=== PATIENT | male | born 1965 | race Caucasian/White ===

== ENCOUNTER 2023-04-30 10:36 | Outpatient (REF) | payer OTHER, SELFPAY ==
--- NOTE | 2023-04-30 13:01 | PFT_ITS ---
FLOWS: 1. FEV1 75% of predicted at 2.91 L. 2. FVC 75% of predicted at 3.72 L. 3. FEV1 to FVC ratio of 0.78. 4. No bronchodilator response. LUNG VOLUMES: 1. Total lung capacity 95% of predicted at 6.83 L. 2. Residual volume 159% of predicted at 3.61 L. 3. Slow vital capacity 65% of predicted at 3.21 L. 4. Expiratory reserve volume 32% of predicted at 0.48 L. 5. Diffusion capacity is normal. IMPRESSION: No obstructive or restrictive ventilatory defect. No bronchodilator response. Increased residual volume suggests air trapping. Decreased expiratory reserve volume suggests extrathoracic restriction likely secondary to abdominal obesity. MD LISA Hubbard/MODL / [id number]
== END 2023-04-30 10:37 | disposition home or self-care (01) ==
LOC: HO.RESP 10:36
PROVIDERS: PCP Internal Medicine; Visit Provider Internal Medicine
DX: R06.00 Dyspnea, unspecified (principal)
CPT/HCPCS: 94010; 94727; 94729

== ENCOUNTER → 2023-04-30 13:01 | Outpatient (BNV) | payer OTHER, SELFPAY | PROVIDERS: PCP Internal Medicine; Visit Provider Internal Medicine Pulmonary Disease | DX: R06.09 Other forms of dyspnea (principal) | CPT/HCPCS: 94060; 94727; 94729 ==

== ENCOUNTER 2023-05-04 15:03 | Inpatient (IN) | payer OTHER, SELFPAY ==
--- NOTE | ~2023-05-04 | MR_ITS ---
MRI OF THE BRAIN WITHOUT IV CONTRAST INDICATION: CVA. COMPARISON: CTA head and neck 05/04/2023 TECHNIQUE: Multiplanar multisequence MR imaging of the brain was obtained without IV contrast. FINDINGS: There is no hydrocephalus, extra-axial surface collection, or herniation. There is mild chronic microangiopathy. The major flow voids at the skull base are preserved. There is no acute infarct on diffusion-weighted imaging. There is no intracranial hemorrhage on the gradient recalled echo acquisition. The midline structures are normal. The cerebellar tonsils are normally positioned. The cerebellum and brainstem are normal. The craniocervical junction is normal. Osseous marrow signal intensity is homogenous. The visualized soft tissues are unremarkable. MR/MR head/brain wo con IMPRESSION: - No acute intracranial findings. No acute infarcts. - Mild chronic microangiopathy.
--- NOTE | ~2023-05-04 | CT_ITS ---
EXAMINATION: CT ANGIOGRAM HEAD CT ANGIOGRAM NECK CLINICAL INFORMATION: Reason for Exam facial/ neck numbness x 3 days COMPARISON: None. TECHNIQUE: Initial noncontrast sign poster imaging of the head and neck was performed. Noncontrast head CT was also performed. Test bolus sequences followed by intravenous administration 70 mL of Omnipaque 350. Helical imaging was performed in the axial plane from the aortic arch to the skull vertex. Delayed postcontrast imaging of the head was also performed. The data was processed at the reliability technologist's workstation for generation of MIP sequences. Angled MIPs and volume rendered reformatted images were also generated at an offline 3D workstation. Stenoses are assessed in accordance with NASCET criteria unless otherwise indicated. DLP: 2269 mGy-cm This CT examination was performed using dose optimization techniques as appropriate, variously including the following: *Automated exposure control. *Adjustment of mA and/or kV according to patient size (this includes techniques or standardized protocols for targeted exams where dose is matched to indication/reason for exam; i.e. extremities or head). *Use of iterative reconstruction technique. FINDINGS: CT Head: There is no evidence of acute intracranial hemorrhage or edematous territorial infarction. There is no abnormal attenuation within the brain parenchyma. Castillo-white matter differentiation is preserved. The ventricles are normal in size and configuration. No evidence for obstructive hydrocephalus. No abnormal mass effect or midline shift. No extra-axial fluid collections. No pathologic intra-axial enhancement or regional oligemia. No acute soft tissue or osseous abnormalities. The mastoid air cells and paranasal sinuses are clear. CT Neck: The thyroid gland and remaining cervical soft tissues are within normal limits. Mild degenerative changes of the cervical spine. CT Upper Chest: The visualized lung apices and upper mediastinum are within normal limits. Neck CTA: Aortic Arch: Normal contour and caliber. Classic 3 vessel branching pattern of the aortic arch. Great Vessel Origins: No significant stenosis of the branch origins. Right Common Carotid Artery: No focal stenosis or occlusion. Cervical Right Internal Carotid Artery: Normal opacification without focal stenosis or occlusion. Left Common Carotid Artery: No focal stenosis or occlusion. Cervical Left Internal Carotid Artery: Normal opacification without focal stenosis or occlusion. Cervical Right Vertebral Artery: No focal stenosis or occlusion. Cervical Left Vertebral Artery: Slightly dominant. No focal stenosis or occlusion. Brain CTA: Intracranial Internal Carotid Arteries: No focal stenosis or occlusion. Right Anterior Cerebral Artery: Normal A1 segment. Normal opacification of the distal [place] segments. Left Anterior Cerebral Artery: Normal A1 segment. Normal opacification of the distal [place] segments. Anterior Communicating Artery: Normal. Right Middle Cerebral Artery: Normal M1 segment of the MCA without focal stenosis or occlusion. Normal arborization of the distal segments. Left Middle Cerebral Artery: Normal M1 segment of the MCA without focal stenosis or occlusion. Normal arborization of the distal segments. Right Vertebral Artery: Normal V4 segment. Left Vertebral Artery: Normal V4 segment. Basilar Artery: Normal without focal stenosis or occlusion. Normal appearance of the proximal superior cerebellar arteries. Right Posterior Cerebral Artery: Normal P1 segment. Normal opacification of the distal [employer] segments. Left Posterior Cerebral Artery: Normal P1 segment. Normal opacification of the distal [employer] segments. Normal opacification of the superior sagittal, straight, transverse, and sigmoid sinuses. CT/CT angio head neck IMPRESSION: 1. No acute intracranial abnormality including hemorrhage, mass effect, hydrocephalus, or acute territorial edematous infarction. 2. No arterial high grade stenosis or large vessel occlusion in the head or neck.
[2023-05-04 15:27] VITALS: BP 183/89; PULSE 68; RESP 15; TEMP 36.4; O2SAT 98; BMI 30.5
--- NOTE | 2023-05-04 15:28 | ED.HA ---
HPI - Headache General Chief Complaint: Neuro Symptoms/Deficit Stated Complaint: headache Time Seen by Provider: 05/04/23 16:53 Related Data Previous Rx's Medication Instructions Recorded baclofen 20 mg tablet 20 mg PO BID 90 days #180 tabs 04/24/23 furosemide 20 mg tablet (Lasix) 20 mg PO DAILY 90 days #90 tabs 04/24/23 metoprolol succinate 25 mg 25 mg PO DAILY 90 days #90 tabs 04/24/23 tablet,extended release 24 hr nabumetone 500 mg tablet 500 mg PO BID 90 days #180 tabs 04/24/23 pantoprazole 40 mg tablet,delayed 40 mg PO DAILY 90 days #90 tabs 04/24/23 release Allergies Allergy/AdvReac Type Severity Reaction Status Date / Time No Known Allergies Allergy Verified 04/17/23 08:10 [facility] Past Medical History Medical History History of echocardiogram Surgical History History of cholecystectomy History of colonoscopy History of endoscopy Family History Family History (Updated 04/17/23 @ 08:13 by Sandrita Segura MD) Mother Embolism Father Stomach cancer, Onset Age: 60 Sister Mental health disorder Family/Other Mental health disorder Social History Social History Housing: House Alcohol intake: never Patient Tobacco Use Status: Never used Tobacco Smoked in Last 30 Days: No e-Cigarette/Vaping Use: Never Used Second Hand Smoke Exposure: No Use of substances other than those prescribed or required for medical reasons: No Advance Directives: No Advance Directives Information Provided: Yes service: No Current occupational status: unemployed Cognitive needs: No Hearing needs: No Vision needs: Yes Physical Exam Vital Signs: Vital Signs: Last Vital Signs Temp 98.6 F 05/04/23 16:31 Pulse 83 05/04/23 18:52 Resp 14 05/04/23 18:52 BP 126/86 05/04/23 18:52 Pulse Ox 97 05/04/23 18:52 O2 Del Method Room Air 05/04/23 18:52 BMI result Body Mass Index 30.5 NIH Stroke Scale Time: 15:36 Level of Consciousness: Alert Level of Consciousness Questions: Answers both questions correctly Level of Consciousness Commands: Performs both tasks correctly Best Gaze: Normal Visual: No visual loss Facial Palsy: Minor paralyis (mild asymmetry of the mouth) Motor Arm (Right): No drift Motor Arm (Left): No drift Motor Leg (Right): No drift Motor Leg (Left): No drift Limb Ataxia: Absent Sensory: Normal Best Language: No aphasia Dysarthia: Normal Extinction and Inattention: No abnormality Score: 1 Course Course Course Narrative: This is an RME: Additional HPI, ROS, PE not included below will be deferred to primary provider. Patient is a 58-year-old male who presents to the emergency department for evaluation of 05/01 he was working at home, upon going down the stairs he felt with and left side of his body was not responding, had weakness and numbness, and like somebody was ?pulling me also had pain to the left chest that was radiating up into his neck and into the head. 05/02 experiencing numbness from the left shoulder to the head without any pain. He presents today for persistent numbness to the left side of the face, neck and left shoulder. NIH stroke scale of 1 for very mild asymmetry of the mouth. Plan: CT/ CTA head and neck, labs Medications Administered Generic Name Dose Route Start Last Admin Trade Name Freq PRN Reason Stop Dose Admin Enoxaparin Sodium 40 mg 05/04/23 20:00 05/04/23 19:26 Enoxaparin Sodium 40 Mg/0.4 Ml Syringe SUBCUT 40 mg Q24H TOMASZ Administration Discontinued Medications Generic Name Dose Route Start Last Admin Trade Name Freq PRN Reason Stop Dose Admin Aspirin 325 mg 05/04/23 19:08 05/04/23 19:25 Aspirin Enteric Coated 325 Mg Tablet. PO 05/04/23 19:09 325 mg ONCE ONE Administration Diltiazem HCl 20 mg 05/04/23 18:17 05/04/23 18:44 Diltiazem Hcl 50 Mg/10 Ml Vial IVPUSH 05/04/23 18:18 20 mg STAT STA Administration Sodium Chloride 1,000 mls @ 999 mls/hr 05/04/23 18:17 05/04/23 18:44 Ns IVCONT 05/04/23 19:17 999 mls/hr .Q1H1M ONE Administration Iohexol 100 ml 05/04/23 17:13 05/04/23 17:13 Iohexol 350 Mg/Ml 100 Ml Infus..Btl IV 05/04/23 17:14 70 ml ONCE ONE Administration Medical Decision Making Lab Data 05/04/23 16:11 05/04/23 16:11 Labs: Lab Results 05/04/23 05/04/23 05/04/23 Range/Units 16:11 16:11 16:11 WBC 6.3 (4.8-10.8) X10*3/uL RBC 4.71 (4.60-5.80) X10*6/uL Hgb 13.7 L (14.0-18.0) g/dl Hct 42.4 (42.0-52.0) % MCV 90.0 (80.0-98.0) fL MCH 29.1 (27.0-33.0) pg MCHC 32.3 (31.0-36.0) g/dl RDW 12.1 (11.0-16.0) % Plt Count 179 (160-400) X10*3/uL MPV 9.9 (9.4-12.4) fL Immature Gran % (Auto) 0.2 (0.0-0.4) % Neut % (Auto) 72.6 (45-73) % Lymph % (Auto) 17.0 L (20-40) % [place] % (Auto) 8.3 (2-11) % Eos % (Auto) 1.6 (0-4) % Baso % (Auto) 0.3 (0-2) % Lymph # (Auto) 1.1 L (1.2-4.9) X10*3/uL Newton # (Auto) 0.5 (0.1-1.2) X10*3/uL Eos # (Auto) 0.1 (0.0-0.4) X10*3/uL Baso # (Auto) 0.0 (0.0-0.2) X10*3/uL Abs Immat Gran (auto) 0.01 (0.00-0.03) X10*3/uL Absolute Neuts (auto) 4.6 (2.0-8.3) x10*3/uL Absolute Nucleated RBC 0.000 (0.0-0.012) X10*3/uL Nucleated RBC % (auto) 0.0 (0.0-0.2) /100WBC PT 11.7 (10.0-13.1) SEC INR 1.0 (0.9-1.1) Sodium 141 (135-145) mmol/L Potassium 4.4 (3.3-5.1) mmol/L Chloride 103 (96-108) mmol/L Carbon Dioxide 29 (22-29) mmol/L Anion Gap 13 (12-20) BUN 12 (9-16) mg/dL Creatinine 0.98 (0.5-1.4) mg/dL Estim Creat Clear Calc 98.5 Estimated GFR > 60 Random Glucose 90 (60-115) mg/dL Calcium 9.8 (8.4-10.2) mg/dL Total Bilirubin 0.4 (0.0-1.0) mg/dL AST 22 (5-37) U/L ALT 26 (0-40) U/L Alkaline Phosphatase 65 (39-117) U/L Troponin I High Sens (<3.5-35.0) ng/L Total Protein 7.9 (6.5-8.0) g/dL Albumin 4.3 (3.5-5.0) g/dL 05/04/23 Range/Units 16:11 WBC (4.8-10.8) X10*3/uL RBC (4.60-5.80) X10*6/uL Hgb (14.0-18.0) g/dl Hct (42.0-52.0) % MCV (80.0-98.0) fL MCH (27.0-33.0) pg MCHC (31.0-36.0) g/dl RDW (11.0-16.0) % Plt Count (160-400) X10*3/uL MPV (9.4-12.4) fL Immature Gran % (Auto) (0.0-0.4) % Neut % (Auto) (45-73) % Lymph % (Auto) (20-40) % Newton % (Auto) (2-11) % Eos % (Auto) (0-4) % Baso % (Auto) (0-2) % Lymph # (Auto) (1.2-4.9) X10*3/uL Newton # (Auto) (0.1-1.2) X10*3/uL Eos # (Auto) (0.0-0.4) X10*3/uL Baso # (Auto) (0.0-0.2) X10*3/uL Abs Immat Gran (auto) (0.00-0.03) X10*3/uL Absolute Neuts (auto) (2.0-8.3) x10*3/uL Absolute Nucleated RBC (0.0-0.012) X10*3/uL Nucleated RBC % (auto) (0.0-0.2) /100WBC PT (10.0-13.1) SEC INR (0.9-1.1) Sodium (135-145) mmol/L Potassium (3.3-5.1) mmol/L Chloride (96-108) mmol/L Carbon Dioxide (22-29) mmol/L Anion Gap (12-20) BUN (9-16) mg/dL Creatinine (0.5-1.4) mg/dL Estim Creat Clear Calc Estimated GFR Random Glucose (60-115) mg/dL Calcium (8.4-10.2) mg/dL Total Bilirubin (0.0-1.0) mg/dL AST (5-37) U/L ALT (0-40) U/L Alkaline Phosphatase (39-117) U/L Troponin I High Sens 5.4 (<3.5-35.0) ng/L Total Protein (6.5-8.0) g/dL Albumin (3.5-5.0) g/dL Discharge Plan Discharge Clinical Impression: Brain TIA, Atrial fibrillation, new onset
--- NOTE | 2023-05-04 15:38 | PC.NURSE ---
PT L LOWER LIP APPEARS ASYMMETRICAL. ALL OTHER NEUROS APPEARS TO BE WITHIN THE NORMAL LIMIT.
--- NOTE | 2023-05-04 15:42 | ECG_ITS ---
Test Reason : HEADACHE Blood Pressure : / mmHG Vent. Rate : 065 BPM Atrial Rate : 065 BPM P-R Int : 162 ms QRS Dur : 096 ms QT Int : 442 ms P-R-T Axes : 075 058 067 degrees QTc Int : 459 ms Normal sinus rhythm Normal ECG No previous ECGs available Referred By: Maryjo Vanessa Electronically Signed By:Juan Miguel Mac
[2023-05-04 16:20] LABS: Basophils Percent Auto 0.3 % (0-2); Eosinophils Absolute Auto 0.1 X10*3/uL (0.0-0.4); Eosinophils Percent Auto 1.6 % (0-4); Hematocrit 42.4 % (42.0-52.0); Hemoglobin 13.7 g/dl (14.0-18.0); Imm Gran Abs Auto 0.01 X10*3/uL (0.00-0.03); Imm Gran Pct Auto 0.2 % (0.0-0.4); Lymphocytes Absolute Auto 1.1 X10*3/uL (1.2-4.9); MANUAL DIFF FLAG NO; Mean Corpuscular HGB Conc 32.3 g/dl (31.0-36.0); Mean Corpuscular Hemoglobin 29.1 pg (27.0-33.0); Mean Platelet Volume 9.9 fL (9.4-12.4); Monocytes Absolute Auto 0.5 X10*3/uL (0.1-1.2); Monocytes Percent Auto 8.3 % (2-11); Neutrophils Absolute Auto 4.6 x10*3/uL (2.0-8.3); Neutrophils Percent Auto 72.6 % (45-73); Platelet Count 179 X10*3/uL (160-400); Red Blood Count 4.71 X10*6/uL (4.60-5.80); Red Cell Distribution Width 12.1 % (11.0-16.0); White Blood Count 6.3 X10*3/uL (4.8-10.8)
[2023-05-04 16:31] VITALS: BP 169/81; PULSE 62; RESP 18; TEMP 37; O2SAT 97
[2023-05-04 16:34] LABS: Alanine Aminotransferase 26 U/L (0-40); Albumin Level 4.3 g/dL (3.5-5.0); Alkaline Phosphatase 65 U/L (39-117); Anion Gap 13 (12-20); Aspartate Amino Transferase 22 U/L (5-37); Bilirubin Total 0.4 mg/dL (0.0-1.0); Blood Urea Nitrogen 12 mg/dL (9-16); Calcium 9.8 mg/dL (8.4-10.2); Carbon Dioxide 29 mmol/L (22-29); Chloride 103 mmol/L (96-108); Creatinine Clr Calc Pharmacy 98.5; Estimated Glomerular Filt Rate > 60; Glucose Random 90 mg/dL (60-115); Potassium 4.4 mmol/L (3.3-5.1); Sodium 141 mmol/L (135-145); Total Protein 7.9 g/dL (6.5-8.0)
[2023-05-04 16:41] LABS: Troponin-I High Sensitivity 5.4 ng/L (<3.5-35.0)
[2023-05-04 16:42] LABS: Prothrombin Time 11.7 SEC (10.0-13.1)
[2023-05-04] MEDS: iohexoL 350 MG/ML 100 ML INFUS..BTL IV (17:13)
--- NOTE | 2023-05-04 17:54 | ECG_ITS ---
Test Reason : ? A-FIB Blood Pressure : / mmHG Vent. Rate : 115 BPM Atrial Rate : 000 BPM P-R Int : 000 ms QRS Dur : 092 ms QT Int : 318 ms P-R-T Axes : 000 045 047 degrees QTc Int : 439 ms Atrial flutter with rapid ventricular response Abnormal ECG When compared with ECG of 04-MAY-2023 16:04, Atrial flutter has replaced Sinus rhythm Vent. rate has increased BY 50 BPM Referred By: Solange Miranda Electronically Signed By:Juan Miguel Mac
--- NOTE | 2023-05-04 17:57 | ED_ITS ---
HPI - Neuro Symptoms/Deficit General Chief Complaint: Neuro Symptoms/Deficit Stated Complaint: headache Time Seen by Provider: 05/04/23 16:53 Source: patient Mode of arrival: ambulatory Limitations: no limitations History of Present Illness HPI Narrative: Patient comes to emergency room complaining of 3 days of left-sided facial numbness and tingling. Patient states that for approximately 2 months, he has had intermittent chest pain, palpitations, did not think much of it. The reason he came today is because he had 2 days ago severe pain on the left side of the neck radiating towards the arm and also bilateral lower extremity weakness, both self-resolved However, the next day patient woke up with numbness and tingling on the left side of the face. Patient states he has been having numbness of the left side of the face and tongue for 3 days. Related Data Previous Rx's Medication Instructions Recorded baclofen 20 mg tablet 20 mg PO BID 90 days #180 tabs 04/24/23 furosemide 20 mg tablet (Lasix) 20 mg PO DAILY 90 days #90 tabs 04/24/23 metoprolol succinate 25 mg 25 mg PO DAILY 90 days #90 tabs 04/24/23 tablet,extended release 24 hr nabumetone 500 mg tablet 500 mg PO BID 90 days #180 tabs 04/24/23 pantoprazole 40 mg tablet,delayed 40 mg PO DAILY 90 days #90 tabs 04/24/23 release Allergies Allergy/AdvReac Type Severity Reaction Status Date / Time No Known Allergies Allergy Verified 04/17/23 08:10 Review of Systems Review of Systems: Constitutional : No Weight loss, No Fever, No Chills, No Night Sweats, No Fatigue, No Malaise ENT/Mouth : No Hearing loss, No Ear Pain, No Nasal Congestion, No Sinus Pain, No Hoarseness, No sore throat, No Rhinorrhea, No Swallowing Difficulty Eyes: No Eye Pain, No Swelling, No Redness, No Foreign Body, No Discharge, No Vision Changes Cardiovascular : No Chest Pain, No SOB, No Dyspnea on Exertion, No Orthopnea, No Edema, No Palpitations Respiratory : No Cough, No Sputum, No Wheezing, No Smoke Exposure, No Dyspnea Gastrointestinal : No Nausea, No Vomiting, No Diarrhea, No Constipation, No abdominal Pain, No Hematochezia, No Melena Genitourinary : no irregular bleeding, No Dysuria, No Urinary Frequency, No Hematuria, No Urinary Incontinence, No Urgency, No Flank Pain, No Urinary Flow Changes, No Hesitancy Musculoskeletal : No joint pain, No Myalgias, No Joint Swelling Skin : No Skin Lesions, No rash Neuro : No Weakness, No Numbness, complaining of paresthesias on the left side of face, no headache Psych : No Anxiety/Panic, No Depression, No SI/HI/AH/VH, No Social Issues, Heme/Lymph: No Bruising, No Bleeding,No Lymphadenopathy Endocrine : No Polyuria, No Polydipsia, No Temperature Intolerance [facility] Past Medical History Medical History History of echocardiogram Surgical History History of cholecystectomy History of colonoscopy History of endoscopy Family History Family History (Updated 04/17/23 @ 08:13 by Sandrita Segura MD) Mother Embolism Father Stomach cancer, Onset Age: 60 Sister Mental health disorder Family/Other Mental health disorder Social History Social History Housing: House Alcohol intake: never Patient Tobacco Use Status: Never used Tobacco Smoked in Last 30 Days: No e-Cigarette/Vaping Use: Never Used Second Hand Smoke Exposure: No Use of substances other than those prescribed or required for medical reasons: No Advance Directives: No Advance Directives Information Provided: Yes service: No Current occupational status: unemployed Cognitive needs: No Hearing needs: No Vision needs: Yes Physical Exam Vital Signs: Vital Signs: Last Vital Signs Temp 98.6 F 05/04/23 16:31 Pulse 83 05/04/23 18:52 Resp 14 05/04/23 18:52 BP 126/86 05/04/23 18:52 Pulse Ox 97 05/04/23 18:52 O2 Del Method Room Air 05/04/23 18:52 BMI result Body Mass Index 30.5 Const: Other: Appearance: Alert. Oriented X3. No acute distress. Eyes: Pupils equal, round and reactive to light. ENT: Pharynx normal. Neck: Normal inspection. Neck supple. No lymph nodes noted. No crepitus CVS: Heart rate irregularly irregular, approximately 120. Pulses normal. Normal S1 and S2 Respiratory: No respiratory distress. Breath sounds normal. No Wheezing. No rales Abdomen: Soft and nontender. No rigidity. No distention. Skin: Skin warm and dry. Normal skin color. Normal skin turgor. Extremities: No lower extremity edema. No Lacerations. No Rash Neuro: Oriented X 3. No motor deficit. No sensory deficit. Moving all extremities. No slurred speech. CN 2 through 12 grossly intact Psych: calm, cooperative, normal affect Medications Administered Generic Name Dose Route Start Last Admin Trade Name Freq PRN Reason Stop Dose Admin Enoxaparin Sodium 40 mg 05/04/23 20:00 05/04/23 19:26 Enoxaparin Sodium 40 Mg/0.4 Ml Syringe SUBCUT 40 mg Q24H TOMASZ Administration Discontinued Medications Generic Name Dose Route Start Last Admin Trade Name Freq PRN Reason Stop Dose Admin Aspirin 325 mg 05/04/23 19:08 05/04/23 19:25 Aspirin Enteric Coated 325 Mg Tablet.Dr PO 05/04/23 19:09 325 mg ONCE ONE Administration Diltiazem HCl 20 mg 05/04/23 18:17 05/04/23 18:44 Diltiazem Hcl 50 Mg/10 Ml Vial IVPUSH 05/04/23 18:18 20 mg STAT STA Administration Sodium Chloride 1,000 mls @ 999 mls/hr 05/04/23 18:17 05/04/23 18:44 Ns IVCONT 05/04/23 19:17 999 mls/hr .Q1H1M ONE Administration Iohexol 100 ml 05/04/23 17:13 05/04/23 17:13 Iohexol 350 Mg/Ml 100 Ml Infus..Btl IV 05/04/23 17:14 70 ml ONCE ONE Administration Medical Decision Making Medical Decision Making MDM Narrative: -interpretation of head CT/CTA: No intracranial bleed, no obvious occlusion. -I discussed the CT scan findings with the patient. -when patient came in, and initial EKG was taken in triage: My interpretation: Normal sinus rhythm, heart rate 65, no ST segment depression or elevation, no T- wave inversion, QTC 459. -However, on physical exam, patient had rapid heart rate, in the 120s, irregularly irregular. I asked to have the EKG repeated. Second EKG: Atrial fibrillation with RVR, heart rate 115, no ST segment depression or elevation, no T-wave inversion, QTC 439 -I discussed with the patient that it is likely that he is having TIAs secondary to atrial fibrillation at this time, patient is not ready yet to take a decision if he wants to be on blood thinners. I discussed risks versus benefits with the patient. In the meantime, patient would like to be started only on aspirin while he decides on blood thinners -overall, I discussed with the patient he should be admitted. Patient agreeable CHADS2 Vasc score is 3 -I discussed the patient with Dr. Rome, patient being admitted Differential Diagnosis Differential Diagnoses: The differential diagnosis associated with the presentation includes (TIA, CVA, atrial fibrillation) Admission/Observation Consideration of admission/observation: Escalation of care including admission/observation considered Consult Healthcare Provider Management of the patient was discussed with: Hospitalist Lab Data MDM Lab Attestation statement: I reviewed the patient's lab results. 05/04/23 16:11 05/04/23 16:11 Labs: Lab Results 05/04/23 05/04/23 05/04/23 Range/Units 16:11 16:11 16:11 WBC 6.3 (4.8-10.8) X10*3/uL RBC 4.71 (4.60-5.80) X10*6/uL Hgb 13.7 L (14.0-18.0) g/dl Hct 42.4 (42.0-52.0) % MCV 90.0 (80.0-98.0) fL MCH 29.1 (27.0-33.0) pg MCHC 32.3 (31.0-36.0) g/dl RDW 12.1 (11.0-16.0) % Plt Count 179 (160-400) X10*3/uL MPV 9.9 (9.4-12.4) fL Immature Gran % (Auto) 0.2 (0.0-0.4) % Neut % (Auto) 72.6 (45-73) % Lymph % (Auto) 17.0 L (20-40) % [place] % (Auto) 8.3 (2-11) % Eos % (Auto) 1.6 (0-4) % Baso % (Auto) 0.3 (0-2) % Lymph # (Auto) 1.1 L (1.2-4.9) X10*3/uL [place] # (Auto) 0.5 (0.1-1.2) X10*3/uL Eos # (Auto) 0.1 (0.0-0.4) X10*3/uL Baso # (Auto) 0.0 (0.0-0.2) X10*3/uL Abs Immat Gran (auto) 0.01 (0.00-0.03) X10*3/uL Absolute Neuts (auto) 4.6 (2.0-8.3) x10*3/uL Absolute Nucleated RBC 0.000 (0.0-0.012) X10*3/uL Nucleated RBC % (auto) 0.0 (0.0-0.2) /100WBC PT 11.7 (10.0-13.1) SEC INR 1.0 (0.9-1.1) Sodium 141 (135-145) mmol/L Potassium 4.4 (3.3-5.1) mmol/L Chloride 103 (96-108) mmol/L Carbon Dioxide 29 (22-29) mmol/L Anion Gap 13 (12-20) BUN 12 (9-16) mg/dL Creatinine 0.98 (0.5-1.4) mg/dL Estim Creat Clear Calc 98.5 Estimated GFR > 60 Random Glucose 90 (60-115) mg/dL Calcium 9.8 (8.4-10.2) mg/dL Total Bilirubin 0.4 (0.0-1.0) mg/dL AST 22 (5-37) U/L ALT 26 (0-40) U/L Alkaline Phosphatase 65 (39-117) U/L Troponin I High Sens (<3.5-35.0) ng/L Total Protein 7.9 (6.5-8.0) g/dL Albumin 4.3 (3.5-5.0) g/dL 05/04/23 Range/Units 16:11 WBC (4.8-10.8) X10*3/uL RBC (4.60-5.80) X10*6/uL Hgb (14.0-18.0) g/dl Hct (42.0-52.0) % MCV (80.0-98.0) fL MCH (27.0-33.0) pg MCHC (31.0-36.0) g/dl RDW (11.0-16.0) % Plt Count (160-400) X10*3/uL MPV (9.4-12.4) fL Immature Gran % (Auto) (0.0-0.4) % Neut % (Auto) (45-73) % Lymph % (Auto) (20-40) % [place] % (Auto) (2-11) % Eos % (Auto) (0-4) % Baso % (Auto) (0-2) % Lymph # (Auto) (1.2-4.9) X10*3/uL [place] # (Auto) (0.1-1.2) X10*3/uL Eos # (Auto) (0.0-0.4) X10*3/uL Baso # (Auto) (0.0-0.2) X10*3/uL Abs Immat Gran (auto) (0.00-0.03) X10*3/uL Absolute Neuts (auto) (2.0-8.3) x10*3/uL Absolute Nucleated RBC (0.0-0.012) X10*3/uL Nucleated RBC % (auto) (0.0-0.2) /100WBC PT (10.0-13.1) SEC INR (0.9-1.1) Sodium (135-145) mmol/L Potassium (3.3-5.1) mmol/L Chloride (96-108) mmol/L Carbon Dioxide (22-29) mmol/L Anion Gap (12-20) BUN (9-16) mg/dL Creatinine (0.5-1.4) mg/dL Estim Creat Clear Calc Estimated GFR Random Glucose (60-115) mg/dL Calcium (8.4-10.2) mg/dL Total Bilirubin (0.0-1.0) mg/dL AST (5-37) U/L ALT (0-40) U/L Alkaline Phosphatase (39-117) U/L Troponin I High Sens 5.4 (<3.5-35.0) ng/L Total Protein (6.5-8.0) g/dL Albumin (3.5-5.0) g/dL Independent Interpretation I performed an independent interpretation of an: CT Scan Radiology Impression Discussion of test interpretation with radiology: I have reviewed the radiologist's reading. Radiologist Impression: FINDINGS: CT Head: There is no evidence of acute intracranial hemorrhage or edematous territorial infarction. There is no abnormal attenuation within the brain parenchyma. Castillo-white matter differentiation is preserved. The ventricles are normal in size and configuration. No evidence for obstructive hydrocephalus. No abnormal mass effect or midline shift. No extra-axial fluid collections. No pathologic intra-axial enhancement or regional oligemia. No acute soft tissue or osseous abnormalities. The mastoid air cells and paranasal sinuses are clear. CT Neck: The thyroid gland and remaining cervical soft tissues are within normal limits. Mild degenerative changes of the cervical spine. CT Upper Chest: The visualized lung apices and upper mediastinum are within normal limits. Neck CTA: Aortic Arch: Normal contour and caliber. Classic 3 vessel branching pattern of the aortic arch. Great Vessel Origins: No significant stenosis of the branch origins. Right Common Carotid Artery: No focal stenosis or occlusion. Cervical Right Internal Carotid Artery: Normal opacification without focal stenosis or occlusion. Left Common Carotid Artery: No focal stenosis or occlusion. Cervical Left Internal Carotid Artery: Normal opacification without focal stenosis or occlusion. Cervical Right Vertebral Artery: No focal stenosis or occlusion. Cervical Left Vertebral Artery: Slightly dominant. No focal stenosis or occlusion. Brain CTA: Intracranial Internal Carotid Arteries: No focal stenosis or occlusion. Right Anterior Cerebral Artery: Normal A1 segment. Normal opacification of the distal FATOUMATA segments. Left Anterior Cerebral Artery: Normal A1 segment. Normal opacification of the distal FATOUMATA segments. Anterior Communicating Artery: Normal. Right Middle Cerebral Artery: Normal M1 segment of the MCA without focal stenosis or occlusion. Normal arborization of the distal segments. Left Middle Cerebral Artery: Normal M1 segment of the MCA without focal stenosis or occlusion. Normal arborization of the distal segments. Right Vertebral Artery: Normal V4 segment. Left Vertebral Artery: Normal V4 segment. Basilar Artery: Normal without focal stenosis or occlusion. Normal appearance of the proximal superior cerebellar arteries. Right Posterior Cerebral Artery: Normal P1 segment. Normal opacification of the distal [employer]EDING [employer] COORDINATOR segments. Left Posterior Cerebral Artery: Normal P1 segment. Normal opacification of the distal BRE[employer]EDING PROGRAM COORDINATOR segments. Normal opacification of the superior sagittal, straight, transverse, and sigmoid sinuses. CT/CT angio head neck IMPRESSION: ? 1.? No acute intracranial abnormality including hemorrhage, mass effect, hydrocephalus, or acute territorial edematous infarction. ? 2.? No arterial high grade stenosis or large vessel occlusion in the head or neck. NIH Stroke Scale Internal: Initial- Upon Arrival Level of Consciousness: Alert Level of Consciousness Questions: Answers both questions correctly Level of Consciousness Commands: Performs both tasks correctly Best Gaze: Normal Visual: No visual loss Facial Palsy: Normal Motor Arm (Right): No drift Motor Arm (Left): No drift Motor Leg (Right): No drift Motor Leg (Left): No drift Limb Ataxia: Absent Sensory: Normal Best Language: No aphasia Dysarthia: Normal Extinction and Inattention: No abnormality Score: 0 Critical Care Time Critical Care Time Critical Care Time: Yes Total Critical Care Time: 75 Attestation: I have personally provided critical care time. Time includes review of lab data, radiology results, discussion with consultants, and monitoring for potential decompensation. Intervention performed as documented. Discharge Plan Discharge Clinical Impression: Brain TIA, Atrial fibrillation, new onset
[2023-05-04 18:17] VITALS: BP 139/96; PULSE 74; RESP 18; O2SAT 95
[2023-05-04 18:40] VITALS: BP 142/86; PULSE 117; RESP 15; O2SAT 96
[2023-05-04] MEDS: 0.9 % Sodium Chloride 1,000 ML 999 ML IVCONT (18:44)
[2023-05-04] MEDS: dilTIAZem HCL 50 MG/10 ML VIAL 20 MG IVPUSH (18:44)
[2023-05-04 18:52] VITALS: BP 126/86; PULSE 83; RESP 14; O2SAT 97
--- NOTE | 2023-05-04 19:15 | PM.IMHP ---
History of Present Illness Date of Service: 05/04/23 Chief Complaint: Facial numbness This is a 58-year-old male with pertinent history of essential hypertension, gastroesophageal reflux disease, chronic back pain presents to the emergency department for evaluation of palpitations and facial numbness/tingling. Patient states he has been having palpitations for the last 3 days, worse with exertion. He initially noticed when he was trying to go up the stairs. Patient also states that 2 days prior to presentation he had left-sided facial numbness and tingling which radiated down to the left arm. No extremity weakness. He denies similar complaints in the past. No rhythm disorders. Patient denies fever, chills, chest discomfort, shortness of breath, abdominal pain, changes in urinary or bowel habits. In the emergency department, patient was found to be in AFib with RVR Review of Systems Constitutional: Constitutional: Reports no additional constitutional complaints Cardiovascular: Cardiovascular: Reports palpitations Respiratory: Respiratory: Reports no additional respiratory complaints Gastrointestinal: Gastrointestinal: Reports no additional gastrointestinal complaints Musculoskeletal: Musculoskeletal: Reports numbness Neurologic: Reports numbness and Reports radicular pain Endocrine: Endocrine: Reports palpitations [facility] Medical History Chronic GERD Essential hypertension History of echocardiogram Lumbar spondylosis Family History Mother Embolism Father Stomach cancer, Onset Age: 60 Sister Mental health disorder Family/Other Mental health disorder Surgical History History of cholecystectomy History of colonoscopy History of endoscopy Social History Housing: House Alcohol intake: never Patient Tobacco Use Status: Never used Tobacco Smoked in Last 30 Days: No e-Cigarette/Vaping Use: Never Used Second Hand Smoke Exposure: No Use of substances other than those prescribed or required for medical reasons: No Advance Directives: No Advance Directives Information Provided: Yes service: No Current occupational status: unemployed Cognitive needs: No Hearing needs: No Vision needs: Yes Meds Allergies Allergy/AdvReac Type Severity Reaction Status Date / Time No Known Allergies Allergy Verified 04/17/23 08:10 Active Medications: Current Medications Acetaminophen (Acetaminophen 325 Mg Tablet) 650 mg PO Q6H PRN PRN Reason: Pain, Mild (Pain Scale 1-3) Enoxaparin Sodium (Enoxaparin Sodium 40 Mg/0.4 Ml Syringe) 40 mg SUBCUT Q24H [facility] Sodium Chloride (Ns) 1,000 mls @ 999 mls/hr IVCONT .Q1H1M ONE Stop: 05/04/23 19:17 Last Admin: 05/04/23 18:44 Dose: 999 mls/hr Melatonin (Melatonin 3 Mg Tablet) 6 mg PO BEDTIME PRN PRN Reason: Insomnia Ondansetron HCl (Ondansetron Hcl 4 Mg/2 Ml Vial) 4 mg IVPUSH Q6H PRN PRN Reason: Nausea and Vomiting Pharmacy Consult (Consult Rx Perform Med Rec) 1 each MISCELLANE ONCE PRN PRN Reason: Consult order Sodium Chloride (0.9 % Sodium Chloride Flush 3 Ml Syringe) 3 ml IVFLUSH QSHIFT [facility] Physical Exam Vital Signs and Narrative: Vital Signs: Last Vital Signs Temp 98.6 F 05/04/23 16:31 Pulse 83 05/04/23 18:52 Resp 14 05/04/23 18:52 BP 126/86 05/04/23 18:52 Pulse Ox 97 05/04/23 18:52 O2 Del Method Room Air 05/04/23 18:52 BMI result Body Mass Index 30.5 Middle-aged male lying in bed in no distress Neck supple, no JVD Irregularly irregular, S1-S2 heard Regular breath sounds bilaterally, no wheezing or crackles appreciated Abdomen soft nontender, no guarding, no rigidity Patient is awake, alert and oriented to self, place, time and person ; no pronator drift, strength 5/5 in bilateral upper and lower extremity, tongue and uvula midline, no nystagmus Psych: Normal mood No pedal edema Results Labs 05/04/23 16:11 05/04/23 16:11 Labs: Laboratory Results - last 24 hr 05/04/23 05/04/23 05/04/23 16:11 16:11 16:11 MCV 90.0 MCH 29.1 MCHC 32.3 RDW 12.1 Plt Count 179 MPV 9.9 Immature Gran % (Auto) 0.2 Neut % (Auto) 72.6 Lymph % (Auto) 17.0 L [place] % (Auto) 8.3 Eos % (Auto) 1.6 Baso % (Auto) 0.3 Lymph # (Auto) 1.1 L [place] # (Auto) 0.5 Eos # (Auto) 0.1 Baso # (Auto) 0.0 Abs Immat Gran (auto) 0.01 Absolute Neuts (auto) 4.6 Absolute Nucleated RBC 0.000 Nucleated RBC % (auto) 0.0 PT 11.7 INR 1.0 Anion Gap 13 Estim Creat Clear Calc 98.5 Estimated GFR > 60 Random Glucose 90 Calcium 9.8 Total Bilirubin 0.4 AST 22 ALT 26 Alkaline Phosphatase 65 Troponin I High Sens Total Protein 7.9 Albumin 4.3 05/04/23 16:11 MCV MCH MCHC RDW Plt Count MPV Immature Gran % (Auto) Neut % (Auto) Lymph % (Auto) [place] % (Auto) Eos % (Auto) Baso % (Auto) Lymph # (Auto) [place] # (Auto) Eos # (Auto) Baso # (Auto) Abs Immat Gran (auto) Absolute Neuts (auto) Absolute Nucleated RBC Nucleated RBC % (auto) PT INR Anion Gap Estim Creat Clear Calc Estimated GFR Random Glucose Calcium Total Bilirubin AST ALT Alkaline Phosphatase Troponin I High Sens 5.4 Total Protein Albumin Imaging Radiologist's Impressions: Impressions Head/Neck CTA 05/04/23 17:34 IMPRESSION: 1. No acute intracranial abnormality including hemorrhage, mass effect, hydrocephalus, or acute territorial edematous infarction. 2. No arterial high grade stenosis or large vessel occlusion in the head or neck. Assessment and Plan (1) Atrial fibrillation, new onset: Status: Acute Plan This is a 58-year-old male with pertinent history of essential hypertension, gastroesophageal reflux disease, chronic back pain presents to the emergency department for evaluation of palpitations and facial numbness/tingling. #. AFib with RVR, new onset. Will admit patient with cardiac monitoring. Chads Vasc score 1. Obtaining echo in consulting Cardiology. TSH pending. Rate controlled with IV diltiazem in the ER #. Facial tingling and numbness with left arm radicular pain, transient. Unclear etiology. Consulting neurology. No headache. MRI pending #. Essential hypertension. Continue home antihypertensives #. Gastroesophageal reflux disease. On PPI Med rec pending DVT prophylaxis: Lovenox Full code Cardiac diet Time Spent With Patient Time: Total time managing care of this patient today ____ minutes. Quality Stroke Does the patient have a stroke diagnosis?: No VTE Prior VTE?: No VTE Risk Level:: Medical - moderate - high VTE Device Contraindication: Treatment Not Indicated VTE Drug Contraindication: N/A - Med Ordered
[2023-05-04] MEDS: Aspirin Enteric Coated 325 MG TABLET.DR PO (19:25)
[2023-05-04] MEDS: Enoxaparin Sodium 40 MG/0.4 ML SYRINGE SUBCUT (19:26)
[2023-05-04] MEDS: 0.9 % Sodium Chloride Flush 3 ML SYRINGE IVFLUSH (22:36)
[2023-05-04 22:37] VITALS: BMI 30.1
--- NOTE | 2023-05-04 22:53 | PC.NURSE ---
Pt arrive to [facility] from ED at approx 2230. A&Ox4, Estonian speaking. Calm and cooperative with care. Ambulating independently in room without difficulty. Afib with PVCs on insulation sprayer. Denies pain or discomfort. No s/sx SOB/Dyspnea. Endorses tingling in the BUE down to the fingers. Left sided facial/lip droop noted in the ED. Bed in lowest locked position. Call weaver within reach.
[2023-05-04 23:21] VITALS: BP 167/93; PULSE 98; RESP 20; TEMP 36.1; O2SAT 97
[2023-05-05 03:33] VITALS: BP 133/81; PULSE 98; RESP 20; TEMP 35.7; O2SAT 96
[2023-05-05 07:28] VITALS: BP 135/85; PULSE 74; RESP 18; TEMP 36.2; O2SAT 95
--- NOTE | 2023-05-05 08:49 | P.PNIM_ITS ---
Subjective Subjective Date of Service: 05/05/23 Review of Systems Follow up facial numbness and palpitations feeling better, numbness has resolved Physical Exam Vital Signs: Vital Signs: Last Vital Signs Temp 97.1 F 05/05/23 07:28 Pulse 74 05/05/23 07:28 Resp 18 05/05/23 07:28 BP 135/85 05/05/23 07:28 Pulse Ox 95 05/05/23 07:28 O2 Del Method Room Air 05/05/23 07:28 BMI result Body Mass Index 30.1 Appearing in no acute distress lung sounds are clear to auscultation heart regular rate rhythm, clear S1, S2 positive bowel sounds, abdomen is soft, nontender neuro patient is alert x3, no focal deficits Objective Data Active Medications Acetaminophen (Acetaminophen 325 Mg Tablet) 650 mg PO Q6H PRN PRN Reason: Pain, Mild (Pain Scale 1-3) Diltiazem HCl (Diltiazem Hcl 50 Mg/10 Ml Vial) 10 mg IVPUSH STAT STA Stop: 05/05/23 08:49 Enoxaparin Sodium (Enoxaparin Sodium 40 Mg/0.4 Ml Syringe) 40 mg SUBCUT Q24H [facility] Last Admin: 05/04/23 19:26 Dose: 40 mg Documented By: JENNIFER Melatonin (Melatonin 3 Mg Tablet) 6 mg PO BEDTIME PRN PRN Reason: Insomnia Ondansetron HCl (Ondansetron Hcl 4 Mg/2 Ml Vial) 4 mg IVPUSH Q8H PRN PRN Reason: Nausea and Vomiting Pharmacy Consult (Consult Rx Perform Med Rec) 1 each MISCELLANE ONCE PRN PRN Reason: Consult order Sodium Chloride (0.9 % Sodium Chloride Flush 3 Ml Syringe) 3 ml IVFLUSH QSHIFT [facility] Last Admin: 05/04/23 22:36 Dose: 3 ml Documented By: KARIS Labs 05/04/23 16:11 05/04/23 16:11 Labs: Laboratory Results - last 24 hr 05/04/23 05/04/23 05/04/23 16:11 16:11 16:11 MCV 90.0 MCH 29.1 MCHC 32.3 RDW 12.1 Plt Count 179 MPV 9.9 Immature Gran % (Auto) 0.2 Neut % (Auto) 72.6 Lymph % (Auto) 17.0 L [place] % (Auto) 8.3 Eos % (Auto) 1.6 Baso % (Auto) 0.3 Lymph # (Auto) 1.1 L [place] # (Auto) 0.5 Eos # (Auto) 0.1 Baso # (Auto) 0.0 Abs Immat Gran (auto) 0.01 Absolute Neuts (auto) 4.6 Absolute Nucleated RBC 0.000 Nucleated RBC % (auto) 0.0 PT 11.7 INR 1.0 Anion Gap 13 Estim Creat Clear Calc 98.5 Estimated GFR > 60 Random Glucose 90 Calcium 9.8 Total Bilirubin 0.4 AST 22 ALT 26 Alkaline Phosphatase 65 Troponin I High Sens Total Protein 7.9 Albumin 4.3 TSH 0.60 05/04/23 16:11 MCV MCH MCHC RDW Plt Count MPV Immature Gran % (Auto) Neut % (Auto) Lymph % (Auto) [place] % (Auto) Eos % (Auto) Baso % (Auto) Lymph # (Auto) [place] # (Auto) Eos # (Auto) Baso # (Auto) Abs Immat Gran (auto) Absolute Neuts (auto) Absolute Nucleated RBC Nucleated RBC % (auto) PT INR Anion Gap Estim Creat Clear Calc Estimated GFR Random Glucose Calcium Total Bilirubin AST ALT Alkaline Phosphatase Troponin I High Sens 5.4 Total Protein Albumin TSH Assessment and Plan (1) Atrial fibrillation, new onset: Status: Acute Plan This is a 58-year-old male with pertinent history of essential hypertension, gastroesophageal reflux disease, chronic back pain presents to the emergency department for evaluation of palpitations and facial numbness/tingling.? AFib with RVR, new onset.? Chads Vasc score 1.? echocardiogram pending Cardiology consult.? HR in the 120's while patient in bed.>one dose IV diltiazem Facial tingling and numbness with left arm radicular pain, transient.? Unclear etiology.? Consulting neurology.? No headache.? MRI pending Essential hypertension.? Continue home antihypertensives Gastroesophageal reflux disease.? On PPI DVT prophylaxis:? Lovenox Full code Attending Dr. Crespo Continued hospital stay for tx of afib rvr requiring close monitoring Time Spent With Patient Time: Total time managing care of this patient today ____ minutes. Quality Stroke Does the patient have a stroke diagnosis?: No VTE Prior VTE?: No VTE Risk Level:: Medical - moderate - high VTE Device Contraindication: Treatment Not Indicated VTE Drug Contraindication: N/A - Med Ordered
--- NOTE | 2023-05-05 09:08 | PHA.MEDREC ---
Pharmacy Consult ? Medication Reconciliation Pharmacy has completed the medication reconciliation. Completed by Alem Gutiérrez
[2023-05-05] MEDS: 0.9 % Sodium Chloride Flush 3 ML SYRINGE IVFLUSH ×2 (09:17→19:57)
[2023-05-05] MEDS: dilTIAZem HCL 50 MG/10 ML VIAL 10 MG IVPUSH (09:17)
[2023-05-05] MEDS: Acetaminophen 325 MG TABLET 650 MG PO (09:32)
--- NOTE | 2023-05-05 09:49 | PC.NURSE ---
Addendum entered by Natalya Medellin RN 05/05/23 18:18: IV Cardizem weaned off by 1400, IV digoxin started per order continue with oral diltiazem per order with good effect. HR in 90's occasionally jumps up into teens to 120's with movement. Per pt feeling much improved. Will continue to monitor and report changes Addendum entered by Natalya Medellin RN 05/05/23 11:28: Pt off unit to MRI approximately 1000 with RN, unable to tolerate laying flat feeling short of breath and also severe pressure/headache at time, supply chain planner at MRI for communication heart rate into 140's at times while flat. Linsey Crocker NP notified patient returned unit and started on oral and Cardizem drip at 10mg/hr. Resting in bed with head of bed elevated at 30. Seen by Dr Mac at bedside upon return. Will continue to monitor and report changes Original Note: Assessment completed with supply chain planner at bedside, patient is A&OX4 speech clear, tongue midline, smile symmetric although at rest mild left mouth asymmetry. Denies headache at this time although states recently with intermittent pain to left side of head down neck and shoulder to mid chest just below ribs. Denies dizziness or blurry/double vision at this time pupils PERRL 2B. Pt does report prior history of vision worse to left eye than right glasses at bedside. HOFF to command 5/5 slightly weaker to left upper denies numbness/tingling at this time. strong shoulder shrug and plantar/dorsi flexion +pp bilat no edema noted. Lung sounds clear denies shortness of breath or chest pain this time. Afib on monitor initially in 90's approx 0815 heart rate in 130-140's at rest c/o feeling slightly short of breath at this time. Matilda Crocker NP notified 10mg IV cardizem given per order with little effect. c/o chronic back pain down left leg and around left lower ribs from front to back Tylenol given per order. BSX4 abdomen soft non-tender denies nausea/vomiting tolerating diet swallow intact. Plan for MRI now.
[2023-05-05 11:06] VITALS: BP 152/87; PULSE 112; RESP 18; TEMP 36.4; O2SAT 95
[2023-05-05] MEDS: dilTIAZem HCL 30 MG TABLET PO ×4 (11:08→19:56)
[2023-05-05] MEDS: dilTIAZem HCL 125 MG in 0.9 % Sodium Chloride 100 ML 10 MG IVCONT (11:08)
--- NOTE | 2023-05-05 11:27 | MHC.CM.PN ---
Pt admitted with facial numbness. Pt lives with his brother right now, he has been there for a year, originally lived in [place]. D/C plan to return home to brothers house. Pt is independent, no services. No HCP, but education provided and he will talk with his brothers and let us know if they decide to make one. Pt will need assistance with transportation. PCP: Sandrita Rivera vax: x 2 pfizer
--- NOTE | 2023-05-05 11:34 | MHC.CM.PN ---
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 Original Note: Pt admitted with facial numbness. Pt lives with his brother, he is independent, self-care, no services. D/C plan to return home to brothers house self-care. No HCP, but education provided and he will talk with his brothers and let us know if they decide to make one. Pt will need assistance with transportation. PCP: Sandrita Rivera vax: x 2 pfizer
--- NOTE | 2023-05-05 11:52 | PM.CNCAR ---
History of Present Illness History of Present Illness Date of Service: 05/05/23 Requesting physician: Arin Crocker Chief complaint: Afib, ?TIA Narrative: [age] year gentleman presenting with left-sided facial paresthesias as well as left arm paresthesias which started on May 01. He said couple days later the symptoms improved and he is back to his normal self at this point. He was getting palpitations and came to the ER and was noted to have AFib with RVR. He was started on Cardizem drip. His heart rates are better at this point. On Cardizem drip. He still has some palpitations. He is denying any neurological complaints currently. He also was getting some chest pains at rest off and on which he describes as the radiating sensation from the lower chest to the upper part. He said this usually happens when he is relaxing. Is not on anticoagulation currently he only agreed to take aspirin. [facility] Past Medical History Medical History Chronic GERD Essential hypertension History of echocardiogram Lumbar spondylosis Family History Family History Mother Embolism Father Stomach cancer, Onset Age: 60 Sister Mental health disorder Family/Other Mental health disorder Surgical History Surgical History History of cholecystectomy History of colonoscopy History of endoscopy Social History Social History Housing: House Alcohol intake: never Patient Tobacco Use Status: Never used Tobacco Smoked in Last 30 Days: No e-Cigarette/Vaping Use: Never Used Second Hand Smoke Exposure: No Use of substances other than those prescribed or required for medical reasons: No Advance Directives: No Advance Directives Information Provided: Yes service: No Current occupational status: unemployed Cognitive needs: No Hearing needs: No Vision needs: Yes Meds Allergies Allergy/AdvReac Type Severity Reaction Status Date / Time No Known Allergies Allergy Verified 04/17/23 08:10 Active Medications: Current Medications Acetaminophen (Acetaminophen 325 Mg Tablet) 650 mg PO Q6H PRN PRN Reason: Pain, Mild (Pain Scale 1-3) Last Admin: 05/05/23 09:32 Dose: 650 mg Baclofen (Baclofen 20 Mg Tablet) 20 mg PO BID PRN PRN Reason: Muscle Spasm Diltiazem HCl (Diltiazem Hcl 30 Mg Tablet) 30 mg PO QID [facility]; Protocol Last Admin: 05/05/23 11:08 Dose: 30 mg Diphenhydramine HCl (Diphenhydramine Hcl 25 Mg Capsule) 25 mg PO TID PRN PRN Reason: Rash Enoxaparin Sodium (Enoxaparin Sodium 40 Mg/0.4 Ml Syringe) 40 mg SUBCUT Q24H [facility] Last Admin: 05/04/23 19:26 Dose: 40 mg Furosemide (Furosemide 20 Mg Tablet) 20 mg PO DAILY [facility]; Protocol Diltiazem HCl 125 mg/ Sodium (Chloride) 125 mls @ 0 mls/hr IVCONT .Q0M [facility]; Protocol Last Admin: 05/05/23 11:08 Dose: 10 mg/hr, 10 mls/hr Melatonin (Melatonin 3 Mg Tablet) 6 mg PO BEDTIME PRN PRN Reason: Insomnia Omeprazole (Omeprazole 20 Mg Capsule.Dr) 20 mg PO DAILY@0630 [facility] Ondansetron HCl (Ondansetron Hcl 4 Mg/2 Ml Vial) 4 mg IVPUSH Q8H PRN PRN Reason: Nausea and Vomiting Pharmacy Consult (Consult Rx Perform Med Rec) 1 each MISCELLANE ONCE PRN PRN Reason: Consult order Sodium Chloride (0.9 % Sodium Chloride Flush 3 Ml Syringe) 3 ml IVFLUSH QSHIFT [facility] Last Admin: 05/05/23 09:17 Dose: 3 ml Home Medications Medication Instructions Recorded Confirmed Last Taken Type baclofen 20 mg tablet 20 mg PO BID PRN Muscle Spasm 05/05/23 05/05/23 Unknown History diphenhydramine HCl 25 mg capsule 25 mg PO TID PRN Rash 05/05/23 05/05/23 Unknown History (Benadryl) Physical Exam Vital Signs: Vital Signs: Last Vital Signs Temp 97.6 F 05/05/23 11:06 Pulse 112 H 05/05/23 11:06 Resp 18 05/05/23 11:06 BP 152/87 H 05/05/23 11:06 Pulse Ox 95 05/05/23 11:06 O2 Del Method Room Air 05/05/23 11:06 BMI result Body Mass Index 30.1 GENERAL APPEARANCE: in no acute distress, pleasant. NECK: no carotid bruit, no jugular venous distention. SKIN: no suspicious lesions, warm and dry. HEART: no murmurs, irregular rate and rhythm. Tachycardic. LUNGS: clear to auscultation bilaterally. ABDOMEN: soft, nontender. EXTREMITIES: no edema. PERIPHERAL PULSES: equal. NEUROLOGIC: No gross deficits, AAO X 3 Objective Labs and Meds 05/04/23 16:11 05/04/23 16:11 Lab results: Laboratory Results - last 24 hr 05/04/23 05/04/23 05/04/23 16:11 16:11 16:11 WBC 6.3 RBC 4.71 Hgb 13.7 L Hct 42.4 MCV 90.0 MCH 29.1 MCHC 32.3 RDW 12.1 Plt Count 179 MPV 9.9 Immature Gran % (Auto) 0.2 Neut % (Auto) 72.6 Lymph % (Auto) 17.0 L Gem % (Auto) 8.3 Eos % (Auto) 1.6 Baso % (Auto) 0.3 Lymph # (Auto) 1.1 L Gem # (Auto) 0.5 Eos # (Auto) 0.1 Baso # (Auto) 0.0 Abs Immat Gran (auto) 0.01 Absolute Neuts (auto) 4.6 Absolute Nucleated RBC 0.000 Nucleated RBC % (auto) 0.0 PT 11.7 INR 1.0 Sodium 141 Potassium 4.4 Chloride 103 Carbon Dioxide 29 Anion Gap 13 BUN 12 Creatinine 0.98 Estim Creat Clear Calc 98.5 Estimated GFR > 60 Random Glucose 90 Calcium 9.8 Total Bilirubin 0.4 AST 22 ALT 26 Alkaline Phosphatase 65 Troponin I High Sens Total Protein 7.9 Albumin 4.3 TSH 0.60 05/04/23 16:11 WBC RBC Hgb Hct MCV MCH MCHC RDW Plt Count MPV Immature Gran % (Auto) Neut % (Auto) Lymph % (Auto) Gem % (Auto) Eos % (Auto) Baso % (Auto) Lymph # (Auto) Gem # (Auto) Eos # (Auto) Baso # (Auto) Abs Immat Gran (auto) Absolute Neuts (auto) Absolute Nucleated RBC Nucleated RBC % (auto) PT INR Sodium Potassium Chloride Carbon Dioxide Anion Gap BUN Creatinine Estim Creat Clear Calc Estimated GFR Random Glucose Calcium Total Bilirubin AST ALT Alkaline Phosphatase Troponin I High Sens 5.4 Total Protein Albumin TSH Imaging Radiologist's impression: Impressions Head/Neck CTA 05/04/23 17:34 IMPRESSION: 1. No acute intracranial abnormality including hemorrhage, mass effect, hydrocephalus, or acute territorial edematous infarction. 2. No arterial high grade stenosis or large vessel occlusion in the head or neck. Assessment and Plan (1) Brain TIA: Status: Acute (2) Essential hypertension: Status: Acute (3) Atrial fibrillation, new onset: Status: Acute Plan [age] year gentleman with AFib with RVR and TIA. I had a detailed discussion with him about anticoagulation. He has only agree to take aspirin currently and was given aspirin and I have explained to him that aspirin is not enough to prevent stroke with atrial fibrillation. He is still not sure about it. This will need read discussion. Currently only option is rate controlled. Continue Cardizem. Giving digoxin load. He will need ischemic evaluation as atrial fibrillation is better controlled. This potentially can be pursued as outpatient too. Thank you for allowing me to participate in the care of your patient. Please feel free to contact me if you have any questions. Time Spent With Patient Time: Total time managing care of this patient today ____ minutes. Procedures Date of Service Date of Service: 05/05/23
[2023-05-05] MEDS: Digoxin 0.5 MG/2 ML AMPUL 0.25 MG IVPUSH ×2 (13:02→17:57)
[2023-05-05 15:26] VITALS: BP 125/80; PULSE 101; RESP 20; TEMP 35.6; O2SAT 96
[2023-05-05 19:35] VITALS: BP 160/87; PULSE 92; RESP 22; TEMP 36.3; O2SAT 97
[2023-05-05] MEDS: Enoxaparin Sodium 40 MG/0.4 ML SYRINGE SUBCUT (19:56)
[2023-05-05 23:37] VITALS: BP 137/78; PULSE 68; RESP 18; TEMP 37; O2SAT 98
[2023-05-06] VITALS (7 sets, daily range): BP systolic 113–152; BP diastolic 64–85; PULSE 69–89; RESP 16–20; TEMP 36.1–36.4; O2SAT 95–97
[2023-05-06] MEDS: Digoxin 0.5 MG/2 ML AMPUL 0.25 MG IVPUSH (00:28)
[2023-05-06] MEDS: Omeprazole 20 MG CAPSULE.DR PO (05:31)
--- NOTE | 2023-05-06 07:00 | CA_ITS ---
Transthoracic Echocardiogram Patient (Last, First, Middle): Anton Hogue, Gender: Male Date of : 1965 Age: 58 Procedure Date: 05/06/2023 Procedure Type: Transthoracic Echocardiogram Location: [facility] – [place] Height: 180.34 cm Weight: 96.62 kg BSA: 2.17 m2 Heart Rate: bpm BP: 123 / 60 mmHg Video Production Engineer: Referring MD: Kailey Rome MD Configuration Developer: Gregory Gabriel MD Symptoms: Afib Study Quality: Adequate with contrast ECG Rhythm: Atrial Fibrillation Conclusions: - 1. Normal LV ejection fraction 55-60% with mild LVH 2. Mildly dilated left atrium 3. Normal cardiac valvular Doppler 4. Normal RV systolic pressure 5. No gross pericardial effusion Findings Procedure Information Contrast agent, definity, is being given per protocol without apparent complications. Left Ventricle Normal left ventricular size and systolic function. There is mildly increased left ventricular wall thickness. The visually estimated ejection fraction is between 55-60%. Normal left ventricular filling pressures. Right Ventricle Normal right ventricular cavity size and systolic function. Atria The left atrium is mildly dilated. Interatrial shunt cannot be excluded. The right atrium is normal in size. Aortic Valve Normal aortic valve structure and function. There is no aortic valve stenosis. There is no aortic valve regurgitation. Mitral Valve Normal mitral valve structure and function. There is trace mitral valve regurgitation. There is no mitral valve stenosis. Pulmonic Valve The pulmonic valve is likely normal. Tricuspid Valve Normal tricuspid valve structure. The right ventricular systolic pressure is 20 mmHg. Normal right atrial pressure. There is no evidence of pulmonary hypertension. Great Vessels All visible segments of the aorta are normal in size. The pulmonary artery was not well visualized. Venous The inferior vena cava is normal in size and collapses greater than 50% with inspiration. Pericardium/Pleural There is no evidence of pericardial effusion. Prior Study Comparison No prior study available for comparison. Measurements 2D Linear Measurements IVSd: 1.25 0.6-0.9/0.6-1.0 cm LVIDd: 4.63 3.9-5.3/4.2-5.9 cm LVIDd Index: 2.13 2.4-3.2/2.2-3.1 cm/m2 LVIDs: 3.23 2.0-3.6 cm LVPWd: 1.25 0.7-1.1 cm LA Diam: 3.70 2.7-3.8/3.0-4.0 cm LAIDs Index: 1.71 1.5-2.3 cm/m2 LV Mass: 273.74 67-162/88-224 g LV Mass Index: 126.15 43-95/49-115 g/m2 LVOT Diam: 2.00 3.0+(-)1.3 cm Mitral Valve MV Pk E: 0.65 MV Decel Time: 264.00 E'Lateral: 12.70 E'Medial: 9.14 E/E' Med: 7.10 E/E' Lat: 5.10 PHT: 77.00 MVA PHT: 2.86 Decel Seneca: 2.45 Aortic Valve AoV Pk Young: 1.04 AoV Mn Young: 0.69 AoV VTI: 0.17 AoV Pk Grad: 4.00 Aov Mn Grad: 3.00 LVOT LVOT Diam: 2.00 LVOT Area: 3.14 Diastolic Function MV Pk E: 0.65 E'Medial: 9.14 E/E' Med: 7.10 E' Laterial: 12.70 E/E' Lat: 5.10 Right Ventricle TAPSE (mm): 26.20 TVS' Young: 11.40 Tricuspid Valve TR Pk Young: 2.08 TR Pk Grad: 17.00 RA Press: 3.00 RVSP: 20.00 Great Vessels Aorta Sinus of Valsalva: 3.10 2.0-3.5 cm Ao Asc: 3.10 2.1-3.4 cm Pulmonary Valve PV Pk Young: 0.91 Peak PV Grad: 3.00 Updated in Other Vendor System with Status of Final Gregory Gabriel MD electronically signed on 05/06/2023 12:35:05 PM with status of Final
[2023-05-06 07:16] LABS: Anion Gap 13 (12-20); Blood Urea Nitrogen 12 mg/dL (9-16); Calcium 9.3 mg/dL (8.4-10.2); Carbon Dioxide 26 mmol/L (22-29); Chloride 104 mmol/L (96-108); Creatinine Clr Calc Pharmacy 103.2; Estimated Glomerular Filt Rate > 60; Glucose Random 107 mg/dL (60-115); Potassium 3.8 mmol/L (3.3-5.1); Sodium 139 mmol/L (135-145)
[2023-05-06] MEDS: Furosemide 20 MG TABLET PO (09:23)
[2023-05-06] MEDS: dilTIAZem HCL 30 MG TABLET PO (09:23)
[2023-05-06] MEDS: 0.9 % Sodium Chloride Flush 3 ML SYRINGE IVFLUSH ×3 (09:24→19:32)
--- NOTE | 2023-05-06 09:34 | P.PNIM_ITS ---
Subjective Subjective Date of Service: 05/06/23 Review of Systems Follow up facial numbness and palpitations feeling better, numbness has resolved Physical Exam Vital Signs: Vital Signs: Last Vital Signs Temp 97.5 F 05/06/23 07:37 Pulse 77 05/06/23 07:37 Resp 18 05/06/23 07:37 BP 133/85 05/06/23 07:37 Pulse Ox 97 05/06/23 07:37 O2 Del Method Room Air 05/06/23 07:37 BMI result Body Mass Index 30.1 Appearing in no acute distress lung sounds are clear to auscultation heart regular rate rhythm, clear S1, S2 positive bowel sounds, abdomen is soft, nontender neuro patient is alert x3, no focal deficits Objective Data Active Medications Acetaminophen (Acetaminophen 325 Mg Tablet) 650 mg PO Q6H PRN PRN Reason: Pain, Mild (Pain Scale 1-3) Last Admin: 05/05/23 09:32 Dose: 650 mg Documented By: PEG Aspirin (Aspirin 81 Mg Tab.Chew) 81 mg PO DAILY [facility] Baclofen (Baclofen 20 Mg Tablet) 20 mg PO BID PRN PRN Reason: Muscle Spasm Diltiazem HCl (Diltiazem Hcl Cd 180 Mg Cap.Er.24h) 180 mg PO DAILY [facility]; Protocol Diphenhydramine HCl (Diphenhydramine Hcl 25 Mg Capsule) 25 mg PO TID PRN PRN Reason: Rash Enoxaparin Sodium (Enoxaparin Sodium 40 Mg/0.4 Ml Syringe) 40 mg SUBCUT Q24H [facility] Last Admin: 05/05/23 19:56 Dose: 40 mg Documented By: SAUNDRA Furosemide (Furosemide 20 Mg Tablet) 20 mg PO DAILY [facility]; Protocol Last Admin: 05/06/23 09:23 Dose: 20 mg Documented By: LO Diltiazem HCl 125 mg/ Sodium (Chloride) 125 mls @ 0 mls/hr IVCONT .Q0M [facility]; Protocol Last Titration: 05/05/23 14:06 Dose: 0 mg/hr, 0 mls/hr Documented By: PEG Melatonin (Melatonin 3 Mg Tablet) 6 mg PO BEDTIME PRN PRN Reason: Insomnia Omeprazole (Omeprazole 20 Mg Capsule.Dr) 20 mg PO DAILY@0630 [facility] Last Admin: 05/06/23 05:31 Dose: 20 mg Documented By: GLORIA Ondansetron HCl (Ondansetron Hcl 4 Mg/2 Ml Vial) 4 mg IVPUSH Q8H PRN PRN Reason: Nausea and Vomiting Pharmacy Consult (Consult Rx Perform Med Rec) 1 each MISCELLANE ONCE PRN PRN Reason: Consult order Rivaroxaban (Rivaroxaban 20 Mg Tablet) 20 mg PO DAILY [facility] Sodium Chloride (0.9 % Sodium Chloride Flush 3 Ml Syringe) 3 ml IVFLUSH QSHIFT [facility] Last Admin: 05/06/23 09:24 Dose: 3 ml Documented By: LO Labs 05/04/23 16:11 05/06/23 06:43 Labs: Laboratory Results - last 24 hr 05/06/23 06:43 Anion Gap 13 Estim Creat Clear Calc 103.2 Estimated GFR > 60 Random Glucose 107 Calcium 9.3 Assessment and Plan (1) Atrial fibrillation, new onset: Status: Acute Plan This is a 58-year-old male with pertinent history of essential hypertension, gastroesophageal reflux disease, chronic back pain presents to the emergency department for evaluation of palpitations and facial numbness/tingling.? AFib with RVR, new onset.? Chads Vasc score 1.? echocardiogram pending Cardiology following>start cardizem CD 180mg daily and xarelto 20mg daily continue diltiazem drip until hr controlled Facial tingling and numbness with left arm radicular pain, transient.? Unclear etiology.? neurology consultation pending ? No headache.? MRI pending>unable to do 05/05/23 due to afib rvr Essential hypertension.? Continue home antihypertensives Gastroesophageal reflux disease.? On PPI DVT prophylaxis:? Lovenox Full code Attending Dr. Rasmussen Continued hospital stay for tx of afib rvr requiring close monitoring Time Spent With Patient Time: Total time managing care of this patient today ____ minutes. Quality Stroke Does the patient have a stroke diagnosis?: No VTE Prior VTE?: No VTE Risk Level:: Medical - moderate - high VTE Device Contraindication: Treatment Not Indicated VTE Drug Contraindication: N/A - Med Ordered
--- NOTE | 2023-05-06 09:41 | PM.NEUROCN ---
History of Present Illness Data of Consult Service Date: 05/06/23 Primary Care Provider: Sandrita Segura MD HPI Reason for consult: Numbness 58 years old man who is diagnosed with atrial fibrillation for the 1st time came to hospital with palpitation and also complain of left-sided facial numbness. When I talked time he stated that it was spasm like pain involving left side of his face tongue shoulder arm and chest. It lasted for 15 minutes. Review of Systems Review of Systems: Palpitation PMFSH Past Medical History Medical History Chronic GERD Essential hypertension History of echocardiogram Lumbar spondylosis Family History Family History Mother Embolism Father Stomach cancer, Onset Age: 60 Sister Mental health disorder Family/Other Mental health disorder Surgical History Surgical History History of cholecystectomy History of colonoscopy History of endoscopy Social History Social History Housing: House Alcohol intake: never Patient Tobacco Use Status: Never used Tobacco Smoked in Last 30 Days: No e-Cigarette/Vaping Use: Never Used Second Hand Smoke Exposure: No Use of substances other than those prescribed or required for medical reasons: No Advance Directives: No Advance Directives Information Provided: Yes service: No Current occupational status: unemployed Cognitive needs: No Hearing needs: No Vision needs: Yes Meds Allergies Allergy/AdvReac Type Severity Reaction Status Date / Time No Known Allergies Allergy Verified 04/17/23 08:10 Active Medications: Current Medications Acetaminophen (Acetaminophen 325 Mg Tablet) 650 mg PO Q6H PRN PRN Reason: Pain, Mild (Pain Scale 1-3) Last Admin: 05/05/23 09:32 Dose: 650 mg Aspirin (Aspirin 81 Mg Tab.Chew) 81 mg PO DAILY [facility] Baclofen (Baclofen 20 Mg Tablet) 20 mg PO BID PRN PRN Reason: Muscle Spasm Diltiazem HCl (Diltiazem Hcl Cd 180 Mg Cap.Er.24h) 180 mg PO DAILY [facility]; Protocol Diphenhydramine HCl (Diphenhydramine Hcl 25 Mg Capsule) 25 mg PO TID PRN PRN Reason: Rash Enoxaparin Sodium (Enoxaparin Sodium 40 Mg/0.4 Ml Syringe) 40 mg SUBCUT Q24H [facility] Last Admin: 05/05/23 19:56 Dose: 40 mg Furosemide (Furosemide 20 Mg Tablet) 20 mg PO DAILY [facility]; Protocol Last Admin: 05/06/23 09:23 Dose: 20 mg Diltiazem HCl 125 mg/ Sodium (Chloride) 125 mls @ 0 mls/hr IVCONT .Q0M [facility]; Protocol Last Titration: 05/05/23 14:06 Dose: 0 mg/hr, 0 mls/hr Melatonin (Melatonin 3 Mg Tablet) 6 mg PO BEDTIME PRN PRN Reason: Insomnia Omeprazole (Omeprazole 20 Mg Capsule.Dr) 20 mg PO DAILY@0630 [facility] Last Admin: 05/06/23 05:31 Dose: 20 mg Ondansetron HCl (Ondansetron Hcl 4 Mg/2 Ml Vial) 4 mg IVPUSH Q8H PRN PRN Reason: Nausea and Vomiting Pharmacy Consult (Consult Rx Perform Med Rec) 1 each MISCELLANE ONCE PRN PRN Reason: Consult order Rivaroxaban (Rivaroxaban 20 Mg Tablet) 20 mg PO DAILY [facility] Sodium Chloride (0.9 % Sodium Chloride Flush 3 Ml Syringe) 3 ml IVFLUSH QSHIFT [facility] Last Admin: 05/06/23 09:24 Dose: 3 ml Home Medications Medication Instructions Recorded Confirmed Last Taken Type baclofen 20 mg tablet 20 mg PO BID PRN Muscle Spasm 05/05/23 05/05/23 Unknown History diphenhydramine HCl 25 mg capsule 25 mg PO TID PRN Rash 05/05/23 05/05/23 Unknown History (Benadryl) Physical Exam Vital Signs: Vital Signs: Last Vital Signs Temp 97.5 F 05/06/23 07:37 Pulse 77 05/06/23 07:37 Resp 18 05/06/23 07:37 BP 133/85 05/06/23 07:37 Pulse Ox 97 05/06/23 07:37 O2 Del Method Room Air 05/06/23 07:37 BMI result Body Mass Index 30.1 Neuro: Other: his cardiac rhythm is irregularly irregular. He is alert and awake with normal spontaneity of speech fluency comprehension and anxious affect. Face is symmetrical. Visual herrera are full. There is no pronator drift. Deep tendon reflexes are trace to absent with flexor plantars. Speech is normal. Results Labs 05/04/23 16:11 05/06/23 06:43 Labs: BMP 05/06/23 06:43 Sodium 139 Potassium 3.8 Chloride 104 Carbon Dioxide 26 BUN 12 Creatinine 0.93 Calcium 9.3 CTA of brain and neck did not reveal any significant abnormality of brain or vasculature. Assessment and Plan (1) Brain TIA: Status: Acute 58 years old man who came to hospital with palpitation and was diagnosed with atrial fibrillation. He also complained of left-sided facial numbness lasting for few minutes. Transient cerebral ischemia was a possibility. Mainstay of management is of atrial fibrillation with long-term anticoagulation. Otherwise his vasculature did not reveal any significant cerebrovascular lesion. Control of other vascular risk factors is recommended Time Spent With Patient Time: Total time managing care of this patient today ____ minutes. Procedures Date of Service Date of Service: 05/06/23
--- NOTE | 2023-05-06 10:34 | MHC.CM.PN ---
Per ROUNDS discussion, Patient needs an Echo and a MRI and is on IV Cardizem; Patient's goal is to go home and CM will follow.
--- NOTE | 2023-05-06 11:02 | PM.PNCARD ---
Subjective Subjective Date of Service: 05/06/23 Principal diagnosis: Atrial fibrillation Interval history: Patient persistent atrial fibrillation rapid ventricular response. He said with help of for foreign language interpreter that he has had palpitation long time but never diagnosed with atrial fibrillation the past. He has prior history of hypertension. He came and still feels numbness on the left side of his face but mainly came with pain on the left side of the face and the left side of the upper body. His brain imaging is negative for any infarct. His Cardizem drip for stopping his heart rate today is 115-120 beats per minute. He denies currently feeling any palpitations or chest pain. Review of Systems Constitutional: Reports no additional constitutional complaints Eyes: Reports no additional eye complaints Cardiovascular: Reports no additional cardiovascular complaints Respiratory: Reports no additional respiratory complaints Musculoskeletal: Reports numbness (Left side of the face) Reports numbness (Left side of the face) Endocrine: Reports no additional endocrine complaints Hematologic/Lymphatic: Reports no additional hematologic/lymphatic complaints Physical Exam Vital Signs: Last Vital Signs Temp 97.5 F 05/06/23 07:37 Pulse 77 05/06/23 07:37 Resp 18 05/06/23 07:37 BP 133/85 05/06/23 07:37 Pulse Ox 97 05/06/23 07:37 O2 Del Method Room Air 05/06/23 07:37 BMI result Body Mass Index 30.1 GENERAL APPEARANCE: in no acute distress, pleasant. NECK: no carotid bruit, no jugular venous distention. SKIN: no suspicious lesions, warm and dry. HEART: no murmurs, irregular rate and rhythm. Tachycardic. LUNGS: clear to auscultation bilaterally. ABDOMEN: soft, nontender. EXTREMITIES: no edema. PERIPHERAL PULSES: equal. NEUROLOGIC: No gross deficits, AAO X 3 Objective Labs and Meds 05/04/23 16:11 05/06/23 06:43 Lab results: Laboratory Results - last 24 hr 05/06/23 06:43 Sodium 139 Potassium 3.8 Chloride 104 Carbon Dioxide 26 Anion Gap 13 BUN 12 Creatinine 0.93 Estim Creat Clear Calc 103.2 Estimated GFR > 60 Random Glucose 107 Calcium 9.3 Progress Note: A&P Assessment and plan (1) Atrial fibrillation, new onset: Status: Acute Assessment and Plan: Atrial fibrillation with rapid ventricular response but no symptoms related to it. Possible numbness on the left side of face consistent with possible sensory involvement question thalamus although his CT scan is negative. Consider MRI. We discussed about need for oral anticoagulation at especially given his neurologic symptoms. High risk for recurrent stroke was discussed. Start on Xarelto 20 mg daily and he is agreeable. Would start him on long-acting Cardizem 180 mg daily. If rate remains adequately control can discharge later today. Outpatient Holter monitor will be pursued. Echocardiogram is being done at bedside and review the results. All questions were answered with help of foreign language interpreter. Will follow-up with him as an outpatient. Time Spent With Patient Time: Total time managing care of this patient today ____ minutes. Progress Note: Quality Stroke Does the patient have a stroke diagnosis?: No Procedures Date of Service Date of Service: 05/06/23
[2023-05-06] MEDS: dilTIAZem HCL CD 180 MG CAP.ER.24H PO (11:08)
[2023-05-06] MEDS: Rivaroxaban 20 MG TABLET PO (11:08)
[2023-05-06 14:19] LABS: Cholesterol 170 mg/dL; HDL Cholesterol 41 mg/dL; LDL Cholesterol Calculated 104 mg/dl; Triglycerides 127 mg/dL
--- NOTE | 2023-05-06 14:33 | MHC.STROKE ---
Addendum entered by Alissa Patterson RN 05/06/23 15:14: REVIEWED LIPID PANEL, LDL 104, CONSIDER A STATIN, LDL GOAL 70. Original Note: I MET WITH THE PATIENT WITH AN MEDICAL SUPPORT ASSISTANT PRESENT. WE DISCUSSED HIS INDIVIDUAL STROKE RISK FACTORS, INCLUDING AFIB, HTN, ETC.. I STRESSED THE IMPORTANCE OF TAKING HIS ANTICOAGULANT EVERY DAY AND HOW AFIB CAN CAUSE A STROKE. I USED THE DIAGRAMS AND PICTURES TO EXPLAIN THE EDUCATION. I REVIEWED HIS MRI RESULTS, THE PLAN OF CARE, AND HOW IMPORTANT COMPLIANCE IS IT RELATES TO PREVENTING FUTURE STROKES. I ANSWERED ALL HIS QUESTIONS.
--- NOTE | 2023-05-06 14:40 | MHC.SL.SWA ---
Speech Pathologist Impression: WFL Dysphasia Diet Status: No changes Liquid Consistency and Strategies for Safe Swallow: Liquid Intake Recommendation: Thin Liquid Intake Strategies: Unrestricted Solid Food Consistency: Dietary Recommendations: Regular Additional Modifications to Solid Foods: Unremarkable exam. Oral Medication Intake: Whole with Liquid Please contact the pharmacy regarding appropriate crushable or liquid drug formulations that are available whenever modified delivery is recommended. Compensatory Strategies and Precautions to be Taken for Safe Swallow: Sitting Upright (90 deg) Small Bites and Sips Rate of Ingestion Change Supervision While Eating and Drinking for Safe Swallow: None Needed Recommendation for Speech: NA:Typical Evaluation Comment: Swallow deemed to be WFL. D/C ST intervention at this time. Please re-refer with any changes or further concern. Web Press Operator Clinican/Clinical Fellow: No Supervisory Statement: I have reviewed and agree with the student/clinical fellow's documentation: N/A Speech Language Pathologist: Elizabeth Gage M.A., CCC-CURATOR HERBARIUM
--- NOTE | 2023-05-06 19:25 | PC.NURSE ---
assumed care of patient at this time. Cardizem gtt d/c'd per report and provider note. Order not d/c'd in computer.
[2023-05-06] MEDS: Baclofen 20 MG TABLET PO (19:28)
[2023-05-06] MEDS: Acetaminophen 325 MG TABLET 650 MG PO (19:28)
[2023-05-07 03:39] VITALS: BP 125/80; PULSE 70; RESP 15; TEMP 36.2; O2SAT 96
[2023-05-07] MEDS: Omeprazole 20 MG CAPSULE.DR PO (06:19)
[2023-05-07 07:13] VITALS: BP 123/76; PULSE 78; RESP 20; TEMP 36.6; O2SAT 98
--- NOTE | 2023-05-07 09:45 | PM.DS ---
DS: Providers Provider Date of Service: 05/07/23 Date of admission: 05/05/23 08:45 Primary care physician: Sandrita Segura MD Consults: 05/04/23 19:13 Consult to Cardiology Routine Consulting Provider[place] [facility] Reason for consultation: afib Has provider been notified: Yes Consult to Neurology Routine Consulting Provider: [facility] Reason for consultation: CVA DS: Diagnosis Discharge Diagnosis (1) Atrial fibrillation, new onset: Status: Acute DS: Summary Hospital Course Hospital Course: History and physical as per admitting provider. This is a 58-year-old male with pertinent history of essential hypertension, gastroesophageal reflux disease, chronic back pain presents to the emergency department for evaluation of palpitations and facial numbness/tingling.? Patient states he has been having palpitations for the last 3 days, worse with exertion.? He initially noticed when he was trying to go up the stairs.? Patient also states that 2 days prior to presentation he had left-sided facial numbness and tingling which radiated down to the left arm.? No extremity weakness.? He denies similar complaints in the past.? No rhythm disorders.? Patient denies fever, chills, chest discomfort, shortness of breath, abdominal pain, changes in urinary or bowel habits.In the emergency department, patient was found to be in AFib with RVR 50-year-old man treated for atrial fibrillation with rapid ventricular response and facial tingling, numbness and left arm radicular pain. Initially was thought that patient may have had a stroke. He was seen and evaluated by Neurology without that TIA was a possibility however MRI was negative for acute or chronic infarction and his symptoms of numbness and tingling had pretty quickly resolved. Encouraged him to follow-up with his primary care provider for further testing and diagnostics of those symptoms. He was seen and evaluated by Cardiology. The atrial fibrillation was pretty active for 2 days requiring diltiazem drip. He improved significantly after starting Cardizem CD. He also initially only wanted to be on aspirin but then subsequently agreed to start on Xarelto 20 mg daily. Echocardiogram showed normal EF of 50-60% with mild LVH. He will need to follow-up with cardiology for further ischemic workup as an outpatient. Hypertension. Continue home medications GERD. Continue PPI Time Spent with Patient Time attestation: Total time managing care of this patient today ____ minutes. Discharge coordination time: Greater than 30 minutes Quality: Safe Use of Opioids Does Pt have an Active Cancer Diagnosis on the Problem List?: No Quality: Stroke Does the patient have a stroke diagnosis?: No Physical Exam Vital Signs: Vital Signs: Last Vital Signs Temp 97.9 F 05/07/23 07:13 Pulse 78 05/07/23 07:13 Resp 20 05/07/23 07:13 BP 123/76 05/07/23 07:13 Pulse Ox 98 05/07/23 07:13 O2 Del Method Room Air 05/07/23 07:13 BMI result Body Mass Index 30.1 Appearing in no acute distress head is normocephalic atraumatic eyes pupils are PERRLA sclera is anicteric mouth throat mucous membranes are intact and moist neck is supple no lymphadenopathy, no JVD noted lung sounds are clear to auscultation heart regular rate irregularly irregular positive bowel sounds, abdomen is soft, nontender neuro patient is alert x3, no focal deficits DS: Data Data Completed and Pending Labs on day of discharge: Laboratory Results - last 24 hr 05/06/23 14:01 Triglycerides 127 Cholesterol 170 LDL Cholesterol, Calc 104 HDL Cholesterol 41 Discharge Plan Discharge Anticipated Discharge Date/Time: 05/07/23 09:38 Patient Disposition: Home, Self-Care Discharge Diagnosis: Atrial fibrillation with rapid ventricular response Referrals: Sandrita Mann MD [Primary Care Provider] - 1 Week Discharge Medications: New Xarelto 20 mg Tablet 20 mg PO DAILY Qty: 30 0RF diltiazem HCl [Cardizem CD] 180 mg Capsule,Extended Release 24hr 180 mg PO DAILY Qty: 30 0RF Protocol: Hold for SBP/HR < HOLD for SBP < : 90 HOLD for HR < : 60 Continued furosemide [Lasix] 20 mg tablet 20 mg PO DAILY 90 Days Qty: 90 1RF nabumetone 500 mg tablet 500 mg PO BID 90 Days Qty: 180 1RF pantoprazole 40 mg tablet,delayed release (DR/EC) 40 mg PO DAILY 90 Days Qty: 90 1RF diphenhydramine HCl [Benadryl] 25 mg Capsule 25 mg PO TID PRN (Reason: Rash) baclofen 20 mg tablet 20 mg PO BID PRN (Reason: Muscle Spasm) Discontinued metoprolol succinate 25 mg tablet extended release 24 hr 25 mg PO DAILY 90 Days Qty: 90 1RF Discharge Orders: Discharge Order (Routine); Ordered 05/07/23 Ordered By: Arin Crocker Diet: Advance to usual diet Activity on Discharge: As tolerated Stand Alone Forms: Patient Portal Discharge page Care Plan Goals: Complete resolution of symptoms Health Concerns: Atrial fibrillation with rapid ventricular response Plan of Treatment: 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
[2023-05-07] MEDS: Furosemide 20 MG TABLET PO (09:47)
[2023-05-07] MEDS: dilTIAZem HCL CD 180 MG CAP.ER.24H PO (09:47)
[2023-05-07] MEDS: Rivaroxaban 20 MG TABLET PO (09:47)
[2023-05-07] MEDS: 0.9 % Sodium Chloride Flush 3 ML SYRINGE IVFLUSH (09:48)
--- NOTE | 2023-05-07 09:49 | MHC.CM.PN ---
Patient has been medically cleared for dc to home today, self care.
[2023-05-07 11:17] VITALS: BP 141/78; PULSE 83; RESP 20; TEMP 36.4
== END 2023-05-07 13:00 | disposition home or self-care (01) | DRG 201 ==
LOC: HO.ED 16:53 → HO.EDOVER 19:19 → HO.IMC 21:46
PROVIDERS: Nurse Practitioner Family; Admitting Provider Student in an Organized Health Care Education/Training Program; Emergency Provider Emergency Medicine; PCP Internal Medicine; Visit Provider Nurse Practitioner Acute Care
DX: I48.91 Unspecified atrial fibrillation (principal); G45.9 Transient cerebral ischemic attack, unspecified; I10 Essential (primary) hypertension; K21.9 Gastro-esophageal reflux disease without esophagitis; Z79.01 Long term (current) use of anticoagulants; Z79.899 Other long term (current) drug therapy
CPT/HCPCS: 36415; 70496; 70498; 70551; 80048; 80053; 80061; 84443; 84484; 85025; 85610; 92610; 93005; 93306; 99285; J1160; J1650; Q9957; Q9967

== ENCOUNTER → 2023-05-04 15:42 | Outpatient (BNV) | payer OTHER, SELFPAY | PROVIDERS: Admitting Provider Student in an Organized Health Care Education/Training Program; Emergency Provider Emergency Medicine; PCP Internal Medicine; Visit Provider Internal Medicine Cardiovascular Disease | DX: I48.91 Unspecified atrial fibrillation (principal); I48.92 Unspecified atrial flutter | CPT/HCPCS: 93010 ==

== ENCOUNTER → 2023-05-04 19:10 | Outpatient (BNV) | payer OTHER, SELFPAY | PROVIDERS: Admitting Provider Student in an Organized Health Care Education/Training Program; Emergency Provider Emergency Medicine; PCP Internal Medicine; Visit Provider Student in an Organized Health Care Education/Training Program | DX: I48.91 Unspecified atrial fibrillation (principal) | CPT/HCPCS: 99222; 99232; 99239 ==

== ENCOUNTER 2023-05-05 08:45 | Outpatient (BNV) | payer OTHER, SELFPAY | END 2023-05-06 07:00 | PROVIDERS: Admitting Provider Student in an Organized Health Care Education/Training Program; Emergency Provider Emergency Medicine; PCP Internal Medicine; Visit Provider Internal Medicine Cardiovascular Disease | DX: I48.91 Unspecified atrial fibrillation (principal) | CPT/HCPCS: 93306 ==

== ENCOUNTER → 2023-05-05 08:45 | Outpatient (BNV) | payer OTHER, SELFPAY | PROVIDERS: Admitting Provider Student in an Organized Health Care Education/Training Program; Emergency Provider Emergency Medicine; PCP Internal Medicine; Visit Provider Internal Medicine Cardiovascular Disease | DX: I48.91 Unspecified atrial fibrillation (principal) | CPT/HCPCS: 99223; 99233 ==

== ENCOUNTER 2023-05-15 06:50 | Outpatient (REF) | payer OTHER, SELFPAY ==
--- NOTE | ~2023-05-15 | FL_ITS ---
EXAMINATION: XR GI SERIES CLINICAL INFORMATION: Reflux. COMPARISON: None available. TECHNIQUE: Air-contrast upper GI examination. FINDINGS: There is normal apposition of the vocal cords while saying E. There is normal elevation of the soft palate while saying candy. Patient swallowed thin and thick barium and a half-inch diameter barium tablet without difficulty. No nasopharyngeal reflux or tracheal aspiration. There was some hypomotility within the esophagus without persistent stricture. There was noted to be spontaneous gastroesophageal reflux to the level of the juan. There is some mucosal irregularity at the level of the gastroesophageal junction without definite ulceration identified. The stomach demonstrates normal distensibility without evidence of abnormal mass or ulceration. The duodenal bulb and sweep appeared unremarkable with no delay in gastric emptying. FLUOROSCOPY TIME: 2.3 minutes. DOSE AREA PRODUCT: 25.188 Gy-cm2 (bridges-centimeter squared). FL/FL upper GI series IMPRESSION: Gastroesophageal reflux which occurs spontaneously with some mucosal abnormality within the distal esophagus at the gastroesophageal junction.
== END 2023-05-15 06:51 | disposition home or self-care (01) ==
LOC: HO.XRAY 06:50
PROVIDERS: PCP Internal Medicine; Visit Provider Internal Medicine
DX: K21.9 Gastro-esophageal reflux disease without esophagitis (principal)
CPT/HCPCS: 74240

== ENCOUNTER → 2023-05-15 06:51 | Outpatient (BNV) | payer OTHER, SELFPAY | PROVIDERS: PCP Internal Medicine; Visit Provider Radiology Diagnostic Radiology | DX: K21.9 Gastro-esophageal reflux disease without esophagitis (principal) | CPT/HCPCS: 74246 ==

== ENCOUNTER → 2023-05-27 09:15 | Outpatient (REF) | payer OTHER, SELFPAY ==
--- NOTE | 2023-05-27 09:18 | HM_ITS ---
Conclusion: 1. Patient was monitored for total period of 2 days 2. Baseline was atrial fibrillation with average heart of 112 beats per minute inadequate rate control 3. No significant pauses noted 4. Occasional PVCs noted 5. No patient reported events MTDD
--- NOTE | 2023-05-27 09:18 | ECG_ITS ---
Test Reason : AFIB Blood Pressure : / mmHG Vent. Rate : 140 BPM Atrial Rate : 140 BPM P-R Int : 184 ms QRS Dur : 092 ms QT Int : 276 ms P-R-T Axes : 000 055 035 degrees QTc Int : 421 ms Atrial flutter with RVR Otherwise normal ECG When compared with ECG of 04-MAY-2023 17:56, ST elevation now present in Inferior leads Referred By: Gregory Gabriel Electronically Signed By:GREGORY GABRIEL MD
== END ==
LOC: HO.CARD 09:15
PROVIDERS: PCP Internal Medicine; Visit Provider Internal Medicine Cardiovascular Disease
DX: R07.9 Chest pain, unspecified (principal); I48.91 Unspecified atrial fibrillation
CPT/HCPCS: 93005; 93225

== ENCOUNTER → 2023-05-27 09:18 | Outpatient (BNV) | payer OTHER, SELFPAY | PROVIDERS: PCP Internal Medicine; Visit Provider Internal Medicine Cardiovascular Disease | DX: I48.91 Unspecified atrial fibrillation (principal) | CPT/HCPCS: 93010; 93227 ==

== ENCOUNTER 2023-05-27 09:44 | Emergency (ER) | payer OTHER, SELFPAY ==
[2023-05-27 09:48] VITALS: BP 152/98; PULSE 142; RESP 13; TEMP 36.8; O2SAT 99; BMI 30.6
[2023-05-27 10:03] LABS: MANUAL DIFF FLAG NO
[2023-05-27 10:08] LABS: Basophils Percent Auto 0.4 % (0-2); Eosinophils Absolute Auto 0.1 X10*3/uL (0.0-0.4); Eosinophils Percent Auto 1.1 % (0-4); Hematocrit 47.5 % (42.0-52.0); Hemoglobin 15.6 g/dl (14.0-18.0); Imm Gran Abs Auto 0.02 X10*3/uL (0.00-0.03); Imm Gran Pct Auto 0.3 % (0.0-0.4); Lymphocytes Absolute Auto 1.3 X10*3/uL (1.2-4.9); Lymphocytes Percent Auto 18.7 % (20-40); Mean Corpuscular HGB Conc 32.8 g/dl (31.0-36.0); Mean Corpuscular Hemoglobin 29.2 pg (27.0-33.0); Mean Platelet Volume 10.1 fL (9.4-12.4); Monocytes Absolute Auto 0.5 X10*3/uL (0.1-1.2); Monocytes Percent Auto 7.7 % (2-11); Neutrophils Percent Auto 71.8 % (45-73); Platelet Count 235 X10*3/uL (160-400); Red Blood Count 5.34 X10*6/uL (4.60-5.80); Red Cell Distribution Width 12.3 % (11.0-16.0)
[2023-05-27 10:19] LABS: Alanine Aminotransferase 27 U/L (0-40); Albumin Level 4.4 g/dL (3.5-5.0); Alkaline Phosphatase 62 U/L (39-117); Anion Gap 11 (12-20); Aspartate Amino Transferase 22 U/L (5-37); Bilirubin Total 0.4 mg/dL (0.0-1.0); Blood Urea Nitrogen 18 mg/dL (9-16); Calcium 9.9 mg/dL (8.4-10.2); Carbon Dioxide 28 mmol/L (22-29); Chloride 104 mmol/L (96-108); Creatinine Clr Calc Pharmacy 79.9; Estimated Glomerular Filt Rate > 60; Glucose Random 110 mg/dL (60-115); Potassium 3.7 mmol/L (3.3-5.1); Sodium 139 mmol/L (135-145); Total Protein 8.4 g/dL (6.5-8.0)
--- NOTE | 2023-05-27 10:24 | ED.ARRPALP ---
HPI - Arrhythmia/Palpitations General Chief Complaint: Arrhythmia/Palpitations Stated Complaint: Abnormal EKG Time Seen by Provider: 05/27/23 10:05 Source: patient and other (cardiology clinic) Mode of arrival: wheelchair Limitations: language barrier History of Present Illness HPI narrative: patient sent in from cardiology clinic for HR of 140. Patient denies chest pain or shortness of breath he states that he only occaisonally has palpitations. He states these intermittent palpitations have been for 3 months complaint: rapid heart beat Onset (ago): month(s) Related Data Home Medications Medication Instructions Recorded Confirmed baclofen 20 mg tablet 20 mg PO BID PRN Muscle Spasm 05/05/23 05/05/23 diphenhydramine HCl 25 mg capsule 25 mg PO TID PRN Rash 05/05/23 05/05/23 (Benadryl) Previous Rx's Medication Instructions Recorded furosemide 20 mg tablet (Lasix) 20 mg PO DAILY 90 days #90 tabs 04/24/23 nabumetone 500 mg tablet 500 mg PO BID 90 days #180 tabs 04/24/23 pantoprazole 40 mg tablet,delayed 40 mg PO DAILY 90 days #90 tabs 04/24/23 release diltiazem HCl 180 mg 180 mg PO DAILY #30 caps 05/07/23 capsule,extended release 24 hr (Cardizem CD) rivaroxaban 20 mg tablet (Xarelto) 20 mg PO DAILY #30 tabs 05/07/23 diltiazem HCl 240 mg 240 mg PO DAILY #30 caps 05/27/23 capsule,extended release 24 hr (Cardizem CD) Allergies Allergy/AdvReac Type Severity Reaction Status Date / Time No Known Allergies Allergy Verified 04/17/23 08:10 Review of Systems Review of Systems: Yes all other systems are reviewed and are negative Neurologic: Denies Sensory deficit (Neuro) [facility] Past Medical History Medical History Atrial fibrillation, new onset Chronic GERD Essential hypertension History of echocardiogram Lumbar spondylosis Surgical History History of cholecystectomy History of colonoscopy History of endoscopy Family History Family History Mother Embolism Father Stomach cancer, Onset Age: 60 Sister Mental health disorder Family/Other Mental health disorder Social History Social History Housing: House Alcohol intake: never Patient Tobacco Use Status: Never used Tobacco e-Cigarette/Vaping Use: Never Used Second Hand Smoke Exposure: No Advance Directives: No Advance Directives Information Provided: Yes service: No Current occupational status: unemployed Cognitive needs: No Hearing needs: No Vision needs: Yes Physical Exam Vital Signs: Vital Signs: Last Vital Signs Temp 97.7 F 05/27/23 12:05 Pulse 98 05/27/23 12:46 Resp 13 05/27/23 12:46 BP 106/67 05/27/23 12:46 Pulse Ox 98 05/27/23 12:46 O2 Del Method Room Air 05/27/23 12:46 BMI result Body Mass Index 30.6 Const: General: healthy appearing Nutritional Appearance: average body habitus Orientation/consciousness: oriented to person and patient oriented x3 Limitations: no limitations HEENT: Head: Yes normal to inspection Ears: external ears normal General nose exam: Normal external nose present Mouth: Normal oral and palatal mucosa present and oropharynx normal Throat: Yes posterior oropharynx normal Eyes: General: appearance normal, both eyes and all related structures Neck: Other: supple Neck: Yes normal visual inspection Chest: Chest palpation & inspection: normal inspection of the chest Resp: Auscultation: clear to auscultation bilaterally Cardio: Other: IRRR tachycardia Jugular venous distension: no JVD GI: Inspection: Yes normal to inspection Palpation (GI): Soft to palpation, nontender and No hepatosplenomegaly present Auscultation: normal bowel sounds : General: Yes no CVA tenderness Back/Spine/Pelvis: Back: no CVA tenderness Skin: General skin exam: no rashes or lesions noted Neuro: General: oriented to person and patient oriented x3 Cranial nerves: Yes CN's II-XII intact bilaterally Motor exam (neuro): 5/5 motor strength present throughout Sensory Exam: No Sensory deficit (Neuro) Extrem: General: Yes normal to inspection Psych: Appearance: grossly normal Course Reevaluation(s) Reevaluation #1: patient responding nicely to cardizem will dc on cardizem CD 240 Time: 14:11 Medications Administered Discontinued Medications Generic Name Dose Route Start Last Admin Trade Name Freq PRN Reason Stop Dose Admin Diltiazem HCl 15 mg 05/27/23 10:25 05/27/23 10:56 Diltiazem Hcl 50 Mg/10 Ml Vial IVPUSH 05/27/23 10:26 15 mg STAT STA Administration Diltiazem HCl 10 mg 05/27/23 12:28 05/27/23 12:45 Diltiazem Hcl 50 Mg/10 Ml Vial IVPUSH 05/27/23 12:29 10 mg STAT STA Administration Medical Decision Making Differential Diagnosis Differential Diagnoses: The differential diagnosis associated with the presentation includes (CAD, atrial fibrillation, atrial flutter) Admission/Observation Consideration of admission/observation: Escalation of care including admission/observation considered (Upon arrival this patient with afib and stroke who presents with rapid HR was considered for admission) Consult Healthcare Provider Management of the patient was discussed with: Forensic Computer Examiner (Dr. Gabriel cardiology) Lab Data MDM Lab Attestation statement: I reviewed the patient's lab results. (slight renal insufficiency and troponin negative) 05/27/23 10:00 05/27/23 10:00 Labs: Lab Results 05/27/23 05/27/23 05/27/23 Range/Units 10:00 10:00 10:00 WBC 7.0 (4.8-10.8) X10*3/uL RBC 5.34 (4.60-5.80) X10*6/uL Hgb 15.6 (14.0-18.0) g/dl Hct 47.5 (42.0-52.0) % MCV 89.0 (80.0-98.0) fL MCH 29.2 (27.0-33.0) pg MCHC 32.8 (31.0-36.0) g/dl RDW 12.3 (11.0-16.0) % Plt Count 235 D (160-400) X10*3/uL MPV 10.1 (9.4-12.4) fL Immature Gran % (Auto) 0.3 (0.0-0.4) % Neut % (Auto) 71.8 (45-73) % Lymph % (Auto) 18.7 L (20-40) % [place] % (Auto) 7.7 (2-11) % Eos % (Auto) 1.1 (0-4) % Baso % (Auto) 0.4 (0-2) % Lymph # (Auto) 1.3 (1.2-4.9) X10*3/uL [place] # (Auto) 0.5 (0.1-1.2) X10*3/uL Eos # (Auto) 0.1 (0.0-0.4) X10*3/uL Baso # (Auto) 0.0 (0.0-0.2) X10*3/uL Abs Immat Gran (auto) 0.02 (0.00-0.03) X10*3/uL Absolute Neuts (auto) 5.0 (2.0-8.3) x10*3/uL Absolute Nucleated RBC 0.000 (0.0-0.012) X10*3/uL Nucleated RBC % (auto) 0.0 (0.0-0.2) /100WBC Sodium 139 (135-145) mmol/L Potassium 3.7 (3.3-5.1) mmol/L Chloride 104 (96-108) mmol/L Carbon Dioxide 28 (22-29) mmol/L Anion Gap 11 L (12-20) BUN 18 H (9-16) mg/dL Creatinine 1.21 (0.5-1.4) mg/dL Estim Creat Clear Calc 79.9 Estimated GFR > 60 Random Glucose 110 (60-115) mg/dL Calcium 9.9 D (8.4-10.2) mg/dL Total Bilirubin 0.4 (0.0-1.0) mg/dL AST 22 (5-37) U/L ALT 27 (0-40) U/L Alkaline Phosphatase 62 (39-117) U/L Troponin I High Sens 5.5 (<3.5-35.0) ng/L Total Protein 8.4 H (6.5-8.0) g/dL Albumin 4.4 (3.5-5.0) g/dL Independent Interpretation I performed an independent interpretation of an: EKG (atrial flutter rate of 130 no ischemia) Independent Historian Clinical information obtained from an independent historian. History obtained from or confirmed by: Other (nurse from cardiology clinic) External Record Review External record reviewed: Outpatient record (reviewed for treatment) Chronic Conditions Patient?s care impacted by: Diabetes, Hypertension and Other (atrial fibrillation) Discharge Plan Discharge Clinical Impression: Atrial fibrillation, Atrial flutter Patient Disposition: Home, Self-Care Instructions: Atrial Flutter (ED), A-fib (Atrial Fibrillation) (ED) Prescriptions: New diltiazem HCl [Cardizem CD] 240 mg capsule,extended release 24hr 240 mg PO DAILY Qty: 30 0RF No Action furosemide [Lasix] 20 mg tablet 20 mg PO DAILY 90 Days Qty: 90 1RF nabumetone 500 mg tablet 500 mg PO BID 90 Days Qty: 180 1RF pantoprazole 40 mg tablet,delayed release (DR/EC) 40 mg PO DAILY 90 Days Qty: 90 1RF diphenhydramine HCl [Benadryl] 25 mg Capsule 25 mg PO TID PRN (Reason: Rash) baclofen 20 mg tablet 20 mg PO BID PRN (Reason: Muscle Spasm) Xarelto 20 mg Tablet 20 mg PO DAILY Qty: 30 0RF diltiazem HCl [Cardizem CD] 180 mg Capsule,Extended Release 24hr 180 mg PO DAILY Qty: 30 0RF Protocol: Hold for SBP/HR < HOLD for SBP < : 90 HOLD for HR < : 60 Referrals: Sandrita Mann MD [Primary Care Provider] - 5 days Gregory Gabriel MD [Physician] - 5 days
[2023-05-27 10:27] LABS: Troponin-I High Sensitivity 5.5 ng/L (<3.5-35.0)
[2023-05-27 10:52] VITALS: BP 134/86; PULSE 115; RESP 17; O2SAT 97
[2023-05-27] MEDS: dilTIAZem HCL 50 MG/10 ML VIAL 15 MG IVPUSH (10:56)
[2023-05-27 11:24] VITALS: PULSE 83; RESP 12
[2023-05-27 12:05] VITALS: BP 136/64; PULSE 92; RESP 15; TEMP 36.5; O2SAT 97
--- NOTE | 2023-05-27 12:06 | PC.NURSE ---
patient resting in bed, respirations equal and unlabored. pt heart rate 92 afib
--- NOTE | 2023-05-27 12:28 | ECG_ITS ---
Test Reason : tachycardia Blood Pressure : / mmHG Vent. Rate : 072 BPM Atrial Rate : 275 BPM P-R Int : 000 ms QRS Dur : 114 ms QT Int : 402 ms P-R-T Axes : 245 042 043 degrees QTc Int : 440 ms Atrial flutter with variable A-V block Abnormal ECG When compared with ECG of 27-MAY-2023 10:20, Atrial flutter has replaced Atrial fibrillation Heart rate has decreased Referred By: Elver Ramesh Electronically Signed By:VALENTINO VICENTE
[2023-05-27] MEDS: dilTIAZem HCL 50 MG/10 ML VIAL 10 MG IVPUSH (12:45)
[2023-05-27 12:46] VITALS: BP 106/67; PULSE 98; RESP 13; O2SAT 98
--- NOTE | 2023-05-27 13:03 | ECG_ITS ---
Test Reason : Afib Blood Pressure : / mmHG Vent. Rate : 122 BPM Atrial Rate : 156 BPM P-R Int : 000 ms QRS Dur : 090 ms QT Int : 346 ms P-R-T Axes : 000 050 050 degrees QTc Int : 493 ms Atrial fibrillation with rapid ventricular response Abnormal ECG When compared with ECG of 27-MAY-2023 09:19, Atrial fibrillation has replaced Atrial flutter Referred By: Elver Ramesh Electronically Signed By:VALENTINO VICENTE
[2023-05-27 14:45] VITALS: BP 123/82; PULSE 99; RESP 15; TEMP 36.7; O2SAT 97
== END 2023-05-27 15:04 | disposition home or self-care (01) ==
PROVIDERS: Emergency Provider Emergency Medicine; PCP Internal Medicine
DX: I48.91 Unspecified atrial fibrillation (principal); I48.92 Unspecified atrial flutter; E11.9 Type 2 diabetes mellitus without complications; I10 Essential (primary) hypertension; K21.9 Gastro-esophageal reflux disease without esophagitis
CPT/HCPCS: 36415; 80053; 84484; 85025; 93005; 96374; 96376; 99285

== ENCOUNTER 2023-06-06 11:06 | Outpatient (AMB) | payer OTHER, SELFPAY ==
[2023-06-06 11:14] VITALS: BP 179/86; PULSE 78; BMI 29.8
--- NOTE | 2023-06-06 11:14 | A.OFFVIS_ITS ---
Intake Vital Signs 06/06/23 11:14 Height 5 ft 11 in Weight 213 lb 13.574 oz BMI 29.8 BP 179/86 H Blood Pressure Location Lt brachial Position Sitting Pulse 78 Intake Visit Reasons: Gastroesophageal reflux disease (GERD) Intake Note: Anton presents in the office as a new patient for GERD. CC: He states that he is not having any concerns just some acid reflux but since taking pantoprazole it has been better. Fire Controlman Required: Yes Fire Controlman Name: [id number] Allergies No Known Allergies Allergy (Verified 06/06/23 11:17) HPI HPI Comments History of Present Illness Details A 58 y/o male referred with GERD-improved with ppi- pantoprazole.Hx of gerd sometime very bad- dietary modifications- He had an EGD 2018-as well as normal colonoscopy 2020- no polyps-[facility]- reviewed Appetite is good-at times he drinks cold water does trigger a cough-causing him to have shortness of breath BP elevated- admits nervous Bowels normal No smoke or drink 04/2023-Reviewed chart [place] AFIB- Xarelto No nausea, vomiting, hematemesis, hematochezia, abdominal pain, headaches, dizziness, chest pain or shortness of breath. No fever or chills PFSH Medical History (Updated 06/11/23 @ 12:02 by Mally Huston PA-C) Atrial fibrillation, new onset Chronic GERD Essential hypertension History of echocardiogram Lumbar spondylosis Surgical History History of cholecystectomy History of colonoscopy History of endoscopy Family History Mother Embolism Father Stomach cancer, Onset Age: 60 Sister Mental health disorder Family/Other Mental health disorder Social History Housing: House Alcohol intake: never Patient Tobacco Use Status: Never used Tobacco e-Cigarette/Vaping Use: Never Used Second Hand Smoke Exposure: No service: No Current occupational status: unemployed Cognitive needs: No Hearing needs: No Vision needs: Yes Review of Systems Const All systems reviewed & are unremarkable except as noted in HPI and below Card Denies chest pain, Denies rapid heart rate and Reports dyspnea on exertion Resp Reports cough and Reports dyspnea on exertion GI Denies abdominal pain, Denies hematochezia, Denies change in bowel habits, Reports heartburn, Denies nausea and Denies vomiting Physical Exam Vital Signs: Last Vital Signs Pulse 78 06/06/23 11:14 BP 179/86 H 06/06/23 11:14 BMI result Body Mass Index 29.8 Somewhat anxious however-notably more calm Const General: cooperative, healthy appearing, comfortable, no acute distress and anxious (Initially) Orientation/consciousness: patient oriented x3 Limitations: language barrier Eyes Sclerae: sclerae normal Resp Effort & Inspection: normal respiratory effort and able to speak in complete sentences Auscultation: clear to auscultation bilaterally, no rales, no rhonchi and no wheezes Cardio Rate: regular rate Rhythm: abnormal rhythm regularly irregular Heart sounds: no murmurs GI Palpation (GI): Soft to palpation and nontender Auscultation: normal bowel sounds Neuro General: patient oriented x3 Extrem General: Yes full ROM Psych Appearance: grossly normal and well kempt Mental Status: mental status grossly normal Speech and movement: Clear speech present Affect: normal affect Attitude: cooperative Thought process: Normal thought process present Thought content: Normal thought content present Insight: Good insight present (Psych) Judgement: Good judgement present (Psych) Results Reviewed Results Reviewed: 05/15/23 FL/FL upper GI series IMPRESSION: Gastroesophageal reflux which occurs spontaneously with some mucosal abnormality within the distal esophagus at the gastroesophageal junction. Assessment & Plan Assessment & Plan (1) Chronic GERD: Code(s): K21.9 - Gastro-esophageal reflux disease without esophagitis Plan: continue ppi (2) Abnormality of esophagus: Comment: 58 y/o male abnormal findings-UGI- new onset AFIB- just started Xarelto pantoprazole 40 mg- he will continue FL/FL upper GI series IMPRESSION: Gastroesophageal reflux which occurs spontaneously with some mucosal abnormality within the distal esophagus at the gastroesophageal junction. Code(s): K22.9 - Disease of esophagus, unspecified (3) Atrial fibrillation: Comment: New onset-Xarelto Code(s): I48.91 - Unspecified atrial fibrillation Plan Note to T-will get cardiac input, if okay to stop the Xarelto for 2 days if not will need Lovenox bridge Continue PPI Monitor symptoms Continue normal medication-monitor BP Medications: Discontinued baclofen 20 mg PO BID 90 days 180 tabs 1RF Patient Instructions: Pleasant 58-year-old Gent not new onset AFib, on anticoagulation therapy with abnormal upper GI series-recommend EGD He will continue pantoprazole 40 mg daily reflux precautions reviewed. Sent note to cardiology for advisement Will call patient with plan of care f/u 4 weeks not to lose f/u Coding Level of Care Code New Pt Level 4 (43658) Diagnoses Chronic GERD K21.9 Abnormality of esophagus K22.9 Atrial fibrillation I48.91 Time Spent (min) 30 Comment [id number]
== END 2023-06-06 12:43 | disposition home or self-care (01) ==
PROVIDERS: PCP Internal Medicine; Visit Provider Physician Assistant
DX: K21.9 Gastro-esophageal reflux disease without esophagitis (principal); K22.9 Disease of esophagus, unspecified; I48.91 Unspecified atrial fibrillation
CPT/HCPCS: 99204

== ENCOUNTER → 2023-06-06 11:06 | Outpatient (BNVA) | payer OTHER, SELFPAY | PROVIDERS: PCP Internal Medicine; Visit Provider Physician Assistant | DX: K21.9 Gastro-esophageal reflux disease without esophagitis (principal); K22.9 Disease of esophagus, unspecified; I48.91 Unspecified atrial fibrillation; Z79.899 Other long term (current) drug therapy | CPT/HCPCS: 99202 ==

== ENCOUNTER 2023-06-28 08:44 | Outpatient (AMB) | payer OTHER, SELFPAY ==
[2023-06-28 09:07] VITALS: BP 140/88; PULSE 88; BMI 29.8
--- NOTE | 2023-06-28 09:07 | MHC.OFFVIS ---
Intake Vital Signs 06/28/23 09:07 Height 5 ft 11 in Weight 213 lb 6.519 oz BMI 29.8 BP 140/88 H Blood Pressure Location Lt brachial Position Sitting Pulse 88 Pulse Source Pulse Oximeter Intake Visit Reasons: C dc/holter Intake Note: [facility] [place]ter. Supervisor Major Appliance Assembly Required: Yes Supervisor Major Appliance Assembly Language: Specimen Transporter Name: Bro Hughes [id number] Accompanied by: Self / Same As Patient Allergies No Known Allergies Allergy (Verified 06/28/23 09:10) Medication List - Last Reconciled 06/28/23 by Viki Foreman NP-C baclofen 20 mg PO BID PRN diltiazem HCl (Cardizem CD) 240 mg PO DAILY 90 days diphenhydramine HCl (Benadryl) 25 mg PO TID PRN furosemide (Lasix) 20 mg PO DAILY 90 days nabumetone 500 mg PO BID 90 days pantoprazole 40 mg PO DAILY 90 days rivaroxaban (Xarelto) 20 mg PO DAILY 90 days HPI C dc/holter HPI Details Anton is a 58-year-old male with past medical history of TIA with recent finding of atrial fibrillation that was treated with heart rate control and started on anticoagulation. He recently had a Holter monitor and now presents for follow-up. Today he reports that on the day he went to have his monitor placed his heart rate was elevated and he went to the ER for evaluation. His diltiazem dose was increased from 180 mg up to 240 mg daily. He will still notice heart palpitations at times. He has some mild shortness of breath with exertional activities. No chest discomfort at rest or with activity. No dizziness, presyncope, syncope, falls. No PND, orthopnea or edema. He has been taking his Xarelto without interruption since his hospital discharge in April. He has no reports of bleeding. Certified conference interpreter used [facility] Medical History Essential hypertension Atrial fibrillation, new onset Lumbar spondylosis Chronic GERD History of echocardiogram Surgical History History of colonoscopy History of endoscopy History of cholecystectomy Family History Mother Embolism Father Stomach cancer, Onset Age: 60 Sister Mental health disorder Family/Other Mental health disorder Social History Housing: House Alcohol intake: never Patient Tobacco Use Status: Never used Tobacco e-Cigarette/Vaping Use: Never Used Second Hand Smoke Exposure: No service: No Current occupational status: unemployed Cognitive needs: No Hearing needs: No Vision needs: Yes Review of Systems Const All systems reviewed & are unremarkable except as noted in HPI and below Denies weakness ENT Denies dizziness Card Denies chest pain, Denies chest pain with activity, Denies syncope, Reports rapid heart rate, Denies pedal edema, Denies edema, Denies leg edema, Denies lightheadedness, Denies palpitations, Denies dyspnea, Reports dyspnea on exertion and Denies orthopnea Resp Denies cough, Denies dyspnea and Reports dyspnea on exertion GI Denies hematochezia and Denies change in stool character Musc Denies abnormal gait, Denies muscle cramps, Denies muscle weakness, Denies numbness, Denies radiating pain into limb and Denies tingling Neuro Denies abnormal gait, Denies dizziness, Denies syncope, Denies numbness, Denies tingling and Denies weakness Endo Denies palpitations Physical Exam Vital Signs: Last Vital Signs Pulse 88 06/28/23 09:07 BP 140/88 H 06/28/23 09:07 BMI result Body Mass Index 29.8 Const General: cooperative, healthy appearing, comfortable and no acute distress Orientation/consciousness: patient oriented x3 Neck Neck: Yes normal visual inspection Resp Effort & Inspection: normal respiratory effort Auscultation: clear to auscultation bilaterally, no crackles, no rales, no rhonchi and no wheezes Cardio Jugular venous distension: no JVD Rate: tachycardic Rhythm: abnormal rhythm Heart sounds: S1 normal heart sound present, S2 normal heart sound present, no murmurs and no rubs Neuro General: patient oriented x3 Extrem General: Yes normal to inspection Psych Appearance: grossly normal Mental Status: mental status grossly normal Speech and movement: Normal speech and movement present Assessment & Plan Assessment & Plan (1) Persistent atrial fibrillation: Code(s): I48.19 - Other persistent atrial fibrillation Plan: New finding of atrial fibrillation on ER presentation 05/04/2023. He was treated with heart rate control and started on Xarelto for anticoagulation prior to his hospital discharge. Prior to his presentation he had reported issues with numbness along the left side of his face and left arm that had since resolved. This was considered to be possible TIA. A CTA of the head and neck on 05/04 2023 showed no acute findings. He had out play shins Holter monitor placed on 05/27/2023 for 2 days showing atrial fibrillation with uncontrolled rate, averaging 112 beats per minute. On the day his monitor was applied he was noted to be in AFib RVR and was sent to the ER for further evaluation . His diltiazem dose was increased from 180 mg daily up to 240 mg daily. He is noted to be mildly tachycardic on examination today with apical heart rate 98 while sitting, as checked by me. He can feel heart palpitations at times also some shortness of breath with exertion. Spoke with him about cardioversion including risks and procedure details. He is willing to proceed. Will check with his primary transportation escort regarding date. Patient states he has not missed any anticoagulation doses since starting in April. Will also order a nuclear stress test to evaluate for any ischemia. Will add metoprolol XL 25 mg daily to assist with heart rate control. Cardiology follow-up approximally 4-6 weeks, which will be post cardioversion, sooner if needed. (2) Essential hypertension: Code(s): I10 - Essential (primary) hypertension Plan: Mild elevation today. Adding low-dose metoprolol (3) TIA (transient ischemic attack): Code(s): G45.9 - Transient cerebral ischemic attack, unspecified Plan: As above. No recurrent facial numbness since his episode in April. He tells me he has had some hand numbness bilateral and is having a nerve conduction study performed Orders: Orders CA lexiscan stress w sandra Today I48.19 - Other persistent atrial fibrillation NM cardiolite stress test Today I48.19 - Other persistent atrial fibrillation Medications: New metoprolol succinate ER 25 mg PO DAILY 30 tabs 3RF Coding Level of Care Code Est Pt Level 4 (63014) Diagnoses Persistent atrial fibrillation I48.19 Essential hypertension I10 TIA (transient ischemic attack) G45.9 Time Spent (min) 30
== END 2023-06-28 09:48 | disposition home or self-care (01) ==
PROVIDERS: PCP Internal Medicine; Visit Provider Nurse Practitioner Family
DX: I48.19 Other persistent atrial fibrillation (principal); I10 Essential (primary) hypertension; G45.9 Transient cerebral ischemic attack, unspecified
CPT/HCPCS: 99214

== ENCOUNTER → 2023-06-28 08:44 | Outpatient (BNVA) | payer OTHER, SELFPAY | PROVIDERS: PCP Internal Medicine; Visit Provider Nurse Practitioner Family | DX: I48.19 Other persistent atrial fibrillation (principal); I10 Essential (primary) hypertension; G45.9 Transient cerebral ischemic attack, unspecified | CPT/HCPCS: 99212 ==

== ENCOUNTER 2023-07-04 10:46 | Outpatient (AMB) | payer OTHER, SELFPAY ==
--- NOTE | 2023-07-04 11:12 | MHC.OFFVIS ---
Intake Vital Signs 07/04/23 11:14 Height 5 ft 11 in Weight 213 lb BMI 29.7 BP 138/94 H Blood Pressure Location Lt brachial Position Sitting Pulse 80 Intake Visit Reasons: 4 weeks follow up Intake Note: Patient follow up for abnormality of Esophagus. Patient denies any GI issues or concern for today. Behavioral Health Aide Required: Yes Behavioral Health Aide [place]: [facility] [place] Allergies No Known Allergies Allergy (Verified 07/04/23 11:11) Medication List - Last Reconciled 07/04/23 by Mally Huston PA-C baclofen 20 mg PO BID PRN diltiazem HCl (Cardizem CD) 240 mg PO DAILY 90 days diphenhydramine HCl (Benadryl) 25 mg PO TID PRN furosemide (Lasix) 20 mg PO DAILY 90 days metoprolol succinate ER 25 mg PO DAILY nabumetone 500 mg PO BID 90 days pantoprazole 40 mg PO DAILY 90 days rivaroxaban (Xarelto) 20 mg PO DAILY 90 days HPI HPI Comments History of Present Illness Details 58-year-old Gent seen a few weeks ago with new onset AFib, on anticoagulation therapy with abnormal upper GI series-recommend EGD-however is undergoing cardiac eval He has a testing coming up in July to include cardioversion He had previously had an EGD will in [place] about 3 years ago then followed here at [facility] where he had a recent upper GI series that noted abnormality. He continues with pantoprazole 40 mg daily reflux precautions reviewed-symptoms seem well controlled He has a good appetite Sent note to cardiology for advisement-recommended Lovenox bridge- [facility] Medical History Essential hypertension Atrial fibrillation, new onset Lumbar spondylosis Chronic GERD History of echocardiogram Surgical History History of colonoscopy History of endoscopy History of cholecystectomy Family History Mother Embolism Father Stomach cancer, Onset Age: 60 Sister Mental health disorder Family/Other Mental health disorder Social History Housing: House Alcohol intake: never Patient Tobacco Use Status: Never used Tobacco e-Cigarette/Vaping Use: Never Used Second Hand Smoke Exposure: No service: No Current occupational status: unemployed Cognitive needs: No Hearing needs: No Vision needs: Yes Physical Exam Vital Signs: Last Vital Signs Pulse 80 07/04/23 11:14 BP 138/94 H 07/04/23 11:14 BMI result Body Mass Index 29.7 Const General: cooperative, healthy appearing, comfortable, no acute distress and well groomed Orientation/consciousness: patient oriented x3 Limitations: language barrier Eyes Sclerae: sclerae normal Resp Effort & Inspection: normal respiratory effort and able to speak in complete sentences Neuro General: patient oriented x3 Extrem General: Yes full ROM Psych Appearance: grossly normal and well kempt Mental Status: mental status grossly normal Speech and movement: Normal speech and movement present and Clear speech present Affect: normal affect Attitude: cooperative Thought process: Normal thought process present Thought content: Normal thought content present Insight: Good insight present (Psych) Judgement: Good judgement present (Psych) Results Reviewed Results Reviewed: FL/FL upper GI series IMPRESSION: Gastroesophageal reflux which occurs spontaneously with some mucosal abnormality within the distal esophagus at the gastroesophageal junction. On 06/18/23 @ 12:48 Mally Huston Wrote To Gastro Nurses A, this pt will need bridge- see below-I tried calling him- he speak SP- I am unsure how this happens- we typically do not order-If you don't mind f/u with him- ? Thank you, [facility] [place] [phone] Cell Phone On 06/11/23 @ 12:46 Juan Miguel Mac Wrote To Mally Huston Agree. Can hold but should be bridged given recent stroke like symptoms Lovenox 1 mg/kg BID. On 06/11/23 @ 12:05 Mally Huston Wrote To Juan Miguel Mac Hi there--you have seen this patient-with the new onset of AFib now on Xarelto-he has been referred to us with abnormal upper GI series -he needs to have EGD however typically discontinue Xarelto for 2 days Discussed with Marielena-says he may need Lovenox bridge-please advise Thank you very much, [facility] [place] & Plan Assessment & Plan (1) Persistent atrial fibrillation: Comment: sched for stress test and cardioversion- 07/29 Code(s): I48.19 - Other persistent atrial fibrillation (2) Abnormality of esophagus: Comment: 58 y/o male abnormal findings-UGI- new onset AFIB- just started Xarelto Advise been from Cardiology may go through with EGD discontinue Xarelto for 2 days however will need a Lovenox bridge He is undergoing cardioversion and stress tests within the next couple weeks- pantoprazole 40 mg- FL/FL upper GI series IMPRESSION: Gastroesophageal reflux which occurs spontaneously with some mucosal abnormality within the distal esophagus at the gastroesophageal junction. Code(s): K22.9 - Disease of esophagus, unspecified Plan EGD with [facility]- will need lovenox bridge- However having cardioversion 07/29/2023- Orders: Orders EDG - GI Use Only Today I48.19 - Other persistent atrial fibrillation, K22.9 - Disease of esophagus, unspecified Patient Instructions: Very pleasant 58-year-old male persistent AFib with abnormal finding of the esophagus EGD with [facility]- will need lovenox bridge- However having cardioversion 07/29/2023- Patient is fully informed, there is no major barriers to understanding identified Coding Level of Care Code Est Pt Level 4 (70041) Diagnoses Persistent atrial fibrillation I48.19 Abnormality of esophagus K22.9 Time Spent (min) 35
[2023-07-04 11:14] VITALS: BP 138/94; PULSE 80; BMI 29.7
== END 2023-07-04 12:22 | disposition home or self-care (01) ==
PROVIDERS: PCP Internal Medicine; Visit Provider Physician Assistant
DX: I48.19 Other persistent atrial fibrillation (principal); K22.9 Disease of esophagus, unspecified
CPT/HCPCS: 99214

== ENCOUNTER → 2023-07-04 10:46 | Outpatient (BNVA) | payer OTHER, SELFPAY | PROVIDERS: PCP Internal Medicine; Visit Provider Physician Assistant | DX: K22.9 Disease of esophagus, unspecified (principal); I48.19 Other persistent atrial fibrillation | CPT/HCPCS: 99212 ==

== ENCOUNTER 2023-07-26 08:18 | Outpatient (REF) | payer OTHER, SELFPAY ==
--- NOTE | 2023-07-26 09:05 | EMG_ITS ---
Chief complaint: Bilateral hand numbness Reason for referral: Evaluate for numbness Referred by: Dr. Sandrita Segura Procedure done: Bilateral upper extremities NCS/EMG Precautions and/or limitations: On Xarelto The limb temperature was monitored continuously and remained between 32-36 degrees C during the performance of the NCS. Nerve Conduction Studies Anti Sensory Summary Table ?Stim Site NR Onset (ms) Norm Onset (ms) Peak (ms) Norm Peak (ms) O-P Amp (?V) Norm O-P Amp Site1 Site2 Delta-0 (ms) Dist (cm) Young (m/s) Norm Young (m/s) Left Median Anti Sensory (2nd Digit) Wrist ? 3.7 4.8 <3.6 21.8 >10 Wrist 2nd Digit 3.7 14.0 38 Right Median Anti Sensory (2nd Digit) Wrist ? 4.0 4.9 <3.6 16.2 >10 Wrist 2nd Digit 4.0 14.0 35 Right Radial Anti Sensory (Thumb) Forearm ? 1.8 2.5 <3.1 22.8 Forearm Thumb 1.8 0.0 Left Ulnar Anti Sensory (5th Digit) Wrist ? 3.1 3.7 <3.7 15.6 >15.0 Wrist 5th Digit 3.1 14.0 45 Right Ulnar Anti Sensory (5th Digit) Wrist ? 2.9 3.5 <3.7 22.7 >15.0 Wrist 5th Digit 2.9 14.0 48 Motor Summary Table ?Stim Site NR Onset (ms) Norm Onset (ms) O-P Amp (mV) Norm O-P Amp iAmp (mV) Amp (1st) (%) Site1 Site2 Delta-0 (ms) Dist (cm) Young (m/s) Norm Young (m/s) Left Median Motor (Abd Poll Brev) Wrist ? 6.3 <3.9 1.3 >4.5 1.4 100.0 Elbow Wrist 4.0 21.0 52 >45 Elbow ? 10.3 4.5 5.2 346.2 Right Median Motor (Abd Poll Brev) Wrist ? 5.8 <3.9 4.1 >4.5 4.8 100.0 Elbow Wrist 4.6 22.0 48 >45 Elbow ? 10.4 3.9 4.4 95.1 Left Ulnar Motor (Abd Dig Minimi) Wrist ? 3.0 <3.0 7.0 >5 8.2 100.0 B Elbow Wrist 4.0 23.0 58 >45 B Elbow ? 7.0 7.0 8.3 100.0 A Elbow B Elbow 1.8 10.0 56 >45 A Elbow ? 8.8 6.6 7.9 94.3 Right Ulnar Motor (Abd Dig Minimi) Wrist ? 2.9 <3.0 4.7 >5 5.6 100.0 B Elbow Wrist 3.8 22.0 58 >45 B Elbow ? 6.7 4.2 5.0 89.4 A Elbow B Elbow 1.8 10.0 56 >45 A Elbow ? 8.5 3.9 4.6 83.0 EMG ?Side Muscle Nerve Root Ins Act Fibs Psw Amp Dur Poly Recrt Int Pat Comment Right 1stDorInt Ulnar C8-T1 Nml Nml Nml Nml Nml 0 Nml Complete Right FlexCarRad Median C6-7 Nml Nml Nml Nml Nml 0 Nml Complete Right Biceps Musculocut C5-6 Nml Nml Nml Nml Nml 0 Nml Complete Right Triceps Radial C6-7-8 Nml Nml Nml Nml Nml 0 Nml Complete Right Deltoid Axillary C5-6 Nml Nml Nml Nml Nml 0 Nml Complete Left 1stDorInt Ulnar C8-T1 Nml Nml Nml Nml Nml 0 Nml Complete Left FlexCarRad Median C6-7 Nml Nml Nml Nml Nml 0 Nml Complete Left Biceps Musculocut C5-6 Nml Nml Nml Nml Nml 0 Nml Complete Left Triceps Radial C6-7-8 Nml Nml Nml Nml Nml 0 Nml Complete Left Deltoid Axillary C5-6 Nml Nml Nml Nml Nml 0 Nml Complete FINDINGS: Bilateral median motor nerves showed prolonged distal latency, small amplitude and normal conduction velocity. Right ulnar motor nerve showed normal distal latency, small amplitude and normal conduction velocity. Bilateral median sensory nerves showed prolonged peak latency. All other nerves tested were within normal. Concentric needle EMG was performed in selected muscles of the bilateral upper extremities. Study did not reveal signs of electric abnormalities as shown in the table below. IMPRESSION: 1. This is an abnormal study. 2. There is electrodiagnostic evidence for bilateral moderate-severe median neuropathy at the wrist, consistent with carpal tunnel syndrome. 3. Possible ulnar neuropathy at the elbow, right. 4. There is no electrodiagnostic evidence for brachial plexopathy, or cervical radiculopathy. Thank you for your kind referral. Kendra Dean MD, JO-ANN Board Certified, [place] [employer] and [employer] (ABPMR) Board Certified, [place] Board [employer] Electro[employer]ostic [employer] (ABEM) CODIN [id number] x 2 MTDD
== END 2023-07-26 08:19 | disposition home or self-care (01) ==
LOC: HO.NEURO 08:18
PROVIDERS: PCP Internal Medicine; Visit Provider Internal Medicine
DX: R20.2 Paresthesia of skin (principal)
CPT/HCPCS: 95886; 95911

== ENCOUNTER → 2023-07-26 09:05 | Outpatient (BNV) | payer OTHER, SELFPAY | PROVIDERS: PCP Internal Medicine; Visit Provider Physical Medicine & Rehabilitation | DX: G56.13 Other lesions of median nerve, bilateral upper limbs (principal); G56.03 Carpal tunnel syndrome, bilateral upper limbs; G56.21 Lesion of ulnar nerve, right upper limb | CPT/HCPCS: 95886; 95911 ==

== ENCOUNTER 2023-09-06 09:00 | Outpatient (REF) | payer OTHER, SELFPAY ==
[2023-09-06 09:10] LABS: MANUAL DIFF FLAG NO
[2023-09-06 09:26] LABS: Basophils Percent Auto 0.5 % (0-2); Eosinophils Absolute Auto 0.1 X10*3/uL (0.0-0.4); Eosinophils Percent Auto 1.5 % (0-4); Hematocrit 45.2 % (42.0-52.0); Hemoglobin 14.5 g/dl (14.0-18.0); Imm Gran Abs Auto 0.01 X10*3/uL (0.00-0.03); Imm Gran Pct Auto 0.2 % (0.0-0.4); Lymphocytes Absolute Auto 1.1 X10*3/uL (1.2-4.9); Lymphocytes Percent Auto 17.8 % (20-40); Mean Corpuscular HGB Conc 32.1 g/dl (31.0-36.0); Mean Corpuscular Hemoglobin 29.3 pg (27.0-33.0); Mean Corpuscular Volume 91.3 fL (80.0-98.0); Mean Platelet Volume 10.3 fL (9.4-12.4); Monocytes Absolute Auto 0.5 X10*3/uL (0.1-1.2); Monocytes Percent Auto 8.8 % (2-11); Neutrophils Absolute Auto 4.3 x10*3/uL (2.0-8.3); Neutrophils Percent Auto 71.2 % (45-73); Platelet Count 200 X10*3/uL (160-400); Red Blood Count 4.95 X10*6/uL (4.60-5.80); Red Cell Distribution Width 12.5 % (11.0-16.0)
[2023-09-06 09:59] LABS: Alanine Aminotransferase 21 U/L (0-40); Albumin Level 4.4 g/dL (3.5-5.0); Alkaline Phosphatase 62 U/L (39-117); Anion Gap 12 (12-20); Aspartate Amino Transferase 19 U/L (5-37); Bilirubin Total 0.4 mg/dL (0.0-1.0); Blood Urea Nitrogen 16 mg/dL (9-16); Calcium 9.6 mg/dL (8.4-10.2); Carbon Dioxide 29 mmol/L (22-29); Chloride 104 mmol/L (96-108); Cholesterol 179 mg/dL (<200); Estimated Glomerular Filt Rate > 60; Glucose Fasting 111 mg/dL (60-99); HDL Cholesterol 51 mg/dL (>40); LDL Cholesterol Calculated 111 mg/dL (<100); Potassium 4.1 mmol/L (3.3-5.1); Sodium 141 mmol/L (135-145); Triglycerides 85 mg/dL (<150)
== END 2023-09-06 09:01 | disposition home or self-care (01) ==
LOC: HO.LAB 09:00
PROVIDERS: PCP Internal Medicine; Visit Provider Internal Medicine
DX: R07.9 Chest pain, unspecified (principal); K21.9 Gastro-esophageal reflux disease without esophagitis
CPT/HCPCS: 36415; 80053; 80061; 85025

== ENCOUNTER → 2023-09-13 08:41 | Outpatient (REF) | payer OTHER, SELFPAY ==
--- NOTE | ~2023-09-13 | NM_ITS ---
Lexiscan Myocardial perfusion study Indication: Shortness of breath, atrial fibrillation, assess for ischemia Technique: The patient was brought in for a Lexiscan perfusion study on 11/20/2023 and was injected 0.4 mg of Lexiscan intravenously. Within a minute of this injection 35 mCi of sestamibi was given intravenously. Images were obtained using the SPECT gamma camera interlaced with the gating device. Images were obtained in supine position. Resting perfusion study was performed on 11/21/2023. Patient was administered 35 mCi of sestamibi intravenously at rest. Images were then obtained in supine position. Images were processed with the software and compared side to side in short axis, horizontal long axis and vertical long axis views. Total DLP 88mGy-cm. Findings: Raw acquisition reviewed. The stress perfusion study showed no significant perfusion abnormality. Both uncorrected as well as CT attenuation corrected images were reviewed. The gated study shows low normal LV systolic function with calculated LVEF of 53%. LV cavity is normal in size. The gated study shows normal wall thickening and contraction of segments. Resting study shows no significant perfusion abnormality. Gating at rest reveals normal wall motion with ejection fraction at 50%. The findings are consistent with no clear reversible or fixed perfusion abnormality. NM/NM cardiolite stress test Impression: 1. Myocardial perfusion imaging study shows probably normal myocardial perfusion. 2. Gated LVEF is 53% during stress and 50% during rest. Correlate with echocardiogram. 3. Transient ischemic dilatation not present. EKG component of the test reported separately.
--- NOTE | 2023-09-13 08:44 | CA_ITS ---
Acquisition Time: 2023-09-13 09:04:14 Total Exercise Time: 00:02:00 Test Indications: AFIB Medications: SEE H Protocol: LEXISCAN Max HR: 155 BPM 95% of Pred: 162 BPM Max BP: 138/076 mmHG Max Work Load: 1.0 METS Pharmacological stress test with Lexiscan injection while sitting in chair, with mild SOB, no chest discomfort, with isolated PVC, with normotensive repsonse to injection, with nondiagnositic EKGs. Aminophylline 75mg IVP given to reverse Lexiscan. Nuclear images pending. Test reviewed with Dr. Gabriel Referred By: Viki Foreman Overread By: Fay Rothman
== END ==
LOC: HO.CARD 08:41
PROVIDERS: PCP Internal Medicine; Visit Provider Nurse Practitioner Family
DX: I48.19 Other persistent atrial fibrillation (principal)
CPT/HCPCS: 78452; 93017; A9500; J0280; J2785

== ENCOUNTER → 2023-09-13 08:44 | Outpatient (BNV) | payer OTHER, SELFPAY | PROVIDERS: PCP Internal Medicine; Visit Provider Nurse Practitioner | DX: I48.19 Other persistent atrial fibrillation (principal); R06.02 Shortness of breath | CPT/HCPCS: 78452; 93016; 93018 ==

== ENCOUNTER 2023-09-19 12:34 | Outpatient (AMB) | payer OTHER, SELFPAY ==
[2023-09-19 13:06] VITALS: BP 136/82; BMI 29.3
--- NOTE | 2023-09-19 13:06 | MHC.PC.OV ---
Vital Signs 09/19/23 13:06 Height 5 ft 11 in Weight 210 lb BMI 29.3 BP 136/82 Blood Pressure Location Lt brachial Position Sitting Intake Visit Reasons: Annual Exam Intake Note: Patient here for an Annual Physical Exam Audiometric Technician Required: No Accompanied by: Self / Same As Patient Allergies No Known Allergies Allergy (Verified 09/19/23 13:42) Medication List - Last Reconciled 09/19/23 by Sandrita Segura MD baclofen 20 mg PO BID PRN diltiazem HCl (Cardizem CD) 240 mg PO DAILY 90 days diphenhydramine HCl (Benadryl) 25 mg PO TID PRN furosemide (Lasix) 20 mg PO DAILY 90 days metoprolol succinate ER 25 mg PO DAILY nabumetone 500 mg PO BID 90 days pantoprazole 40 mg PO DAILY 90 days rivaroxaban (Xarelto) 20 mg PO DAILY 90 days Tobacco use date assessed: 04/17/23 Dental Screening Dental Screen Date: 09/19/23 Did you have a dental visit in the last 12 months?: No Did you have a dental problem in the last 6 months where you did not have access to dental care?: No Was dental information given to patient?: Yes HPI HPI Comments History of Present Illness Details This is a 58-year-old male with persistent atrial fibrillation that comes for his physical exam. On chronic anticoagulation for atrial fibrillation. Labs were discussed and were within normal limits. Last colonoscopy was 2020 in [place] and he does follows with Gastroenterology here. Complains of low back pain that radiates to both legs. Also has [id number] bilateral carpal tunnel and he declines surgery at the moment. He wants to try wrist splint even though I advised that this is not the treatment for moderate to severe carpal tunnel. [facility] Medical History (Updated 09/19/23 @ 14:02 by Sandrita Segura MD) Essential hypertension Atrial fibrillation, new onset Lumbar spondylosis Chronic GERD History of echocardiogram Surgical History History of colonoscopy History of endoscopy History of cholecystectomy Family History Mother Embolism Father Stomach cancer, Onset Age: 60 Sister Mental health disorder Family/Other Mental health disorder Social History Housing: House Alcohol intake: never Comment: N/A Patient Tobacco Use Status: Never used Tobacco e-Cigarette/Vaping Use: Never Used Second Hand Smoke Exposure: No service: No Current occupational status: unemployed Cognitive needs: No Hearing needs: No Vision needs: Yes Questionnaire Thrive Questionnaire Date Thrive assessed: 05/05/23 JOSR-7 AMB Questionnaire JOSR-7 Date JOSR - 7 assessed: 04/17/23 Source: Developed by Drs. Soto Carmen, Nataliya Chavis, Josemanuel Garza and colleagues, with an educational nilda from [employer]. Review of Systems Const All systems reviewed & are unremarkable except as noted in HPI and below Eyes Reports no additional complaints, Denies change in vision and Denies other visual disturbances Card Denies chest pain at rest, Denies chest pain with activity, Denies edema, Denies irregular heart rhythm, Denies claudication, Denies dyspnea, Denies dyspnea on exertion, Denies orthopnea, Denies paroxysmal nocturnal dyspnea and Denies slow heart rate Resp Denies cough, Denies dyspnea and Denies dyspnea on exertion GI Denies abdominal pain, Denies change in bowel habits, Denies excessive flatus, Denies nausea and Denies vomiting Denies urinary hesitancy, Denies urinary incontinence and Denies urinary urgency Musc Denies abnormal gait, Denies atrophy, Denies deformity and Denies limited range of motion Skin/Breast Denies bleeding lesions, Denies changing lesions and Denies rash Neuro Denies abnormal gait and Denies lack of coordination Physical exam (Primary Care) Vital Signs: Last Vital Signs BP 136/82 09/19/23 13:06 BMI result Body Mass Index 29.3 Tobacco/Smoking Status: Tobacco use Status Tobacco use date assessed 04/17/23 09/19/23 13:08 Patient Tobacco Use Status Never used Tobacco 09/19/23 13:08 e-Cigarette/Vaping Use Never Used 09/19/23 13:08 Thrive Assessment: Date of Thrive Assessment Date Thrive assessed 05/05/23 09/19/23 13:08 Const Orientation/consciousness: patient oriented x3 HENMT Head: Yes normal to inspection, Yes normocephalic and Yes atraumatic Ears: external ears normal Eyes General: appearance normal, both eyes and all related structures Eyelids: Yes eyelids normal Conjunctivae: conjunctivae normal Neck Neck: Yes normal visual inspection and Yes supple Resp Effort & Inspection: normal respiratory effort Auscultation: clear to auscultation bilaterally Cardio Jugular venous distension: no JVD Rate: regular rate Rhythm: regular rhythm Heart sounds: S1 normal heart sound present and S2 normal heart sound present GI Inspection: Yes normal to inspection Palpation (GI): Soft to palpation and nontender Auscultation: normal bowel sounds Skin General skin exam: no rashes or lesions noted Neuro General: patient oriented x3 and no focal motor deficits Extrem General: Yes full ROM Psych Appearance: grossly normal Office Procedures Flu Questionnaire Does the patient have a severe egg allergy?: No Does the patient have severe life threatening allergies?: No Does the patient have a fever or illness today?: No Has the patient ever had Guillain-[place] Syndrome?: No Has the patient ever had any past reaction to a flu shot?: No Immunizations flu vacc [id number] 6mos up(PF) 60 mcg(15 mcgx4)/0.5 mL IM syringe Performing Provider: Sandrita Segura MD Performing Location: [facility] Administered by: JALIL Valverde on 09/19/23 13:18 Dose Route Admin Location Dispensed Lot Number Expiration Date NDC Preschool Principal 0.5 mL IM Left Deltoid 0.5 mL [id number] 04/12/24 62537-263-71 [employer] VIS Given Date VIS Provided VIS Publication Date 09/19/23 Single Vaccine 21 Eligibility Eligibility Date Funding Source Not [facility] Eligible 09/19/23 Private Assessment and Plan Assessment & Plan (1) Physical exam: Code(s): Z00.00 - Encounter for general adult medical examination without abnormal findings Plan: Repeat in a year. (2) Persistent atrial fibrillation: Comment: sched for stress test and cardioversion- 07/29 Code(s): I48.19 - Other persistent atrial fibrillation Plan: Continue Xarelto and diltiazem. Follow-up with Cardiology. Orders: Orders Influenza [id number] Immunization Today Z23 - Encounter for immunization XR lumbar spine 2-3V Today M54.31 - Sciatica, right side, M54.32 - Sciatica, left side Hepatitis B Profile Today Z23 - Encounter for immunization Mumps Virus IgG Antibody Today Z23 - Encounter for immunization Rubella IgG Antibody Today Z23 - Encounter for immunization Rubeola IgG (Measles) Today Z23 - Encounter for immunization PSA,Total (Free>4and<10) Today Z12.5 - Encounter for screening for malignant neoplasm of prostate Medications: New [wrist splint bilateral] As directed 2 ea 0RF G56.03 - Carpal tunnel syndrome, bilateral upper limbs Refilled pantoprazole 40 mg PO DAILY 90 tabs 1RF 90 days Coding Level of Care Code Est Pt Prev Care 40-64y(80948) Diagnoses Physical exam Z00.00 Persistent atrial fibrillation I48.19 Time Spent (min) 31
== END 2023-09-19 14:04 | disposition home or self-care (01) ==
PROVIDERS: PCP Internal Medicine; Visit Provider Internal Medicine
DX: Z00.00 Encounter for general adult medical examination without abnormal findings (principal); I48.19 Other persistent atrial fibrillation; Z23 Encounter for immunization
CPT/HCPCS: 90471; 90686; 99396

== ENCOUNTER 2023-12-17 10:38 | Outpatient (AMB) | payer OTHER, SELFPAY ==
[2023-12-17 10:42] VITALS: BMI 29.3
--- NOTE | 2023-12-17 10:42 | MHC.OFFVIS ---
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 States right is worse than left. Patient reports symptoms started about 1 year ago and has worsen. States he is not interested in surgical intervention at this time and would like to discuss injection instead. Patient states he has brace which helps very little. 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 he complains of numbness in the thumb, index, and middle fingers bilaterally, R>L, as well as numbness in the right ring & small fingers. The small finger numbness is his chief complaint today. He says his numbness in the median nerve distribution is intermittent, but he has persistent tingling in the right ring & small fingers. He says this has been worsening for ~1 year now. He says he feels his small finger locks at times, usually when he is sleeping. Pain in lateral aspect of his elbow & dorsal proximal forearm, as well as some pain in his right shoulder He found little relief from wearing bilateral wrist splints at night. He says he is not ready to discuss surgery at this time as he will not have support at home, he would like to discuss alternative treatment options. He is on Xarelto for Afib & Hx of TIA. [facility] Medical History Essential hypertension Atrial fibrillation, new onset Lumbar spondylosis Chronic GERD History of echocardiogram Surgical History History of colonoscopy History of endoscopy History of cholecystectomy Family History Mother Embolism Father Stomach cancer, Onset Age: 60 Sister Mental health disorder Family/Other Mental health disorder Social History (Updated 12/17/23 @ 10:57 by LUCY Manzanares) Housing: House Alcohol intake: never Comment: N/A Patient Tobacco Use Status: Never used Tobacco e-Cigarette/Vaping Use: Never Used Second Hand Smoke Exposure: No service: No Current occupational status: unemployed 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 Cognitive needs: No Hearing needs: No Vision needs: Yes Review of Systems Const All systems reviewed & are unremarkable except as noted in HPI and below Physical Exam Vital Signs: BMI result Body Mass Index 29.3 Const General: cooperative, healthy appearing and no acute distress Orientation/consciousness: patient oriented x3 HEENT Head: Yes normocephalic and Yes atraumatic Eyes EOM: EOMs intact bilaterally Resp Effort & Inspection: normal respiratory effort and able to speak in complete sentences Cardio Jugular venous distension: no JVD Skin General skin exam: turgor normal Rashes: no rashes Neuro General: patient oriented x3 Extrem Other: Evaluation of Bilateral Upper Extremity: The patient is alert, oriented, and in no acute distress Neuro: Normal sensation in the median nerve distribution of the right hand. Persistent tingling in the ulnar nerve distribution of the right hand. This is his primary complaint today Normal sensation to the tips of all digits of the left hand today in clinic No thenar or intrinsic wasting Good APB muscle belly firing and good finger cross Vascular: Cap refill brisk ROM: He can make a fist and extend all his digits No tenderness over the right small finger A1 skip Visible catching of the right small finger after holding his hand in a tight fist Skin: No lacerations or abrasions. General: No Ecchymosis. No Erythema or evidence of infection. Nerve Conduction Study: IMPRESSION: 1. This is an abnormal study. 2. There is electrodiagnostic evidence for bilateral moderate-severe median neuropathy at the wrist, consistent with carpal tunnel syndrome. 3. Possible ulnar neuropathy at the elbow, right. 4. There is no electrodiagnostic evidence for brachial plexopathy, or cervical radiculopathy. Kendra Daen MD, JO-ANN 07/26/23 Psych Appearance: grossly normal Affect: normal affect Attitude: cooperative Assessment & Plan Assessment & Plan (1) Bilateral carpal tunnel syndrome: Code(s): G56.03 - Carpal tunnel syndrome, bilateral upper limbs (2) TIA (transient ischemic attack): Code(s): G45.9 - Transient cerebral ischemic attack, unspecified (3) Persistent atrial fibrillation: Comment: sched for stress test and cardioversion- 07/29 Code(s): I48.19 - Other persistent atrial fibrillation (4) Trigger finger, right little finger: Code(s): M65.351 - Trigger finger, right little finger Plan Assessment & Plan: 1. 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 NCS positive for possible ulnar neuropathy on the right 2. Right carpal tunnel syndrome, moderate-severe Symptoms intermittent, but daily, worse at night 3. Right small finger trigger finger With nighttime locking & catching I educated him about these conditions I discussed operative and non-operative treatment options, including the risks of delaying treatment as delaying treatment could leave him with more permanent nerve changes. He expressed understanding Unfortunately he patient says he is not in a living situation where he would have support in order to proceed with surgery. He will follow up in 3 months to discuss surgery, providing his situation has improved. 4. Left carpal tunnel syndrome, moderate-severe Symptoms intermittent, but daily, worse at night He can follow up to discuss treatment Scribed for Shellie Steiner MD by Keshav Frye, biomedical engineering professor, on 12/17/23 at 11:00 AM, EST. Coding Level of Care Code New Pt Level 3 (53605) Diagnoses Bilateral carpal tunnel syndrome G56.03 TIA (transient ischemic attack) G45.9 Persistent atrial fibrillation I48.19 Trigger finger, right little finger M65.351
== END 2023-12-17 11:31 | disposition home or self-care (01) ==
PROVIDERS: PCP Internal Medicine; Visit Provider Orthopaedic Surgery
DX: G56.03 Carpal tunnel syndrome, bilateral upper limbs (principal); M65.351 Trigger finger, right little finger; G45.9 Transient cerebral ischemic attack, unspecified; I48.19 Other persistent atrial fibrillation
CPT/HCPCS: 99203

== ENCOUNTER → 2023-12-17 10:38 | Outpatient (BNVA) | payer OTHER, SELFPAY | PROVIDERS: PCP Internal Medicine; Visit Provider Orthopaedic Surgery | DX: G56.03 Carpal tunnel syndrome, bilateral upper limbs (principal); G45.9 Transient cerebral ischemic attack, unspecified; I48.19 Other persistent atrial fibrillation; M65.351 Trigger finger, right little finger | CPT/HCPCS: 99202 ==

== ENCOUNTER 2024-01-09 12:26 | Outpatient (AMB) | payer OTHER, SELFPAY ==
[2024-01-09 13:10] VITALS: BP 142/80; PULSE 75; BMI 30.1
--- NOTE | 2024-01-09 13:10 | MHC.OFFVIS ---
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: Electrical Engineering Teacher Name: faraz Harkins [id number] Allergies No Known Allergies Allergy (Verified 01/09/24 13:12) Medication List - Last Reconciled 01/09/24 by Viki Foreman NP-C baclofen 20 mg PO BID PRN diltiazem HCl (Cardizem CD) 240 mg PO DAILY 90 days diphenhydramine HCl (Benadryl) 25 mg PO TID PRN furosemide (Lasix) 20 mg PO DAILY 90 days metoprolol succinate ER 25 mg PO DAILY nabumetone 500 mg PO BID 90 days pantoprazole 40 mg PO DAILY 90 days rivaroxaban (Xarelto) 20 mg PO DAILY 90 days [wrist splint bilateral As directed] HPI f/u Dental clearance HPI Details Anton is a 58-year-old male with past medical history of TIA, paroxysmal AFib who presents for follow-up and preop evaluation. Today he reports that he has not felt any recent heart palpitations. He denies any chest discomfort at rest or with activity. No concerning shortness of breath, lightheadedness, presyncope, syncope, falls. No PND, orthopnea or edema. No bleeding issues with Xarelto use. Taking all meds as directed. Tells me that he will be needing dental work, carpal tunnel surgery as well as an endoscopy. Certified residential substance abuse counselor used. [facility] Medical History Essential hypertension Atrial fibrillation, new onset Lumbar spondylosis Chronic GERD History of echocardiogram Surgical History History of colonoscopy History of endoscopy History of cholecystectomy Family History Mother Embolism Father Stomach cancer, Onset Age: 60 Sister Mental health disorder Family/Other Mental health disorder Social History Housing: House Alcohol intake: never Comment: N/A Patient Tobacco Use Status: Never used Tobacco e-Cigarette/Vaping Use: Never Used Second Hand Smoke Exposure: No service: No Current occupational status: unemployed 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 Cognitive needs: No Hearing needs: No Vision needs: Yes Review of Systems Const All systems reviewed & are unremarkable except as noted in HPI and below ENT Denies dizziness Card Denies chest pain, Denies chest pain at rest, Denies chest pain with activity, Denies rapid heart rate, Denies pedal edema, Denies edema, Denies leg edema, Denies lightheadedness, Denies palpitations, Denies dyspnea, Denies dyspnea on exertion and Denies orthopnea Resp Denies cough, Denies dyspnea and Denies dyspnea on exertion GI Denies hematochezia and Denies change in stool character Musc Denies abnormal gait, Denies limited range of motion, Denies muscle cramps, Denies muscle weakness, Denies numbness, Denies radiating pain into limb, Denies stiffness and Denies tingling Neuro Denies abnormal gait, Denies dizziness, Denies numbness and Denies tingling Endo Denies palpitations Physical Exam Vital Signs: Last Vital Signs Pulse 75 01/09/24 13:10 BP 142/80 H 01/09/24 13:10 BMI result Body Mass Index 30.1 Const General: cooperative, healthy appearing, comfortable and no acute distress Orientation/consciousness: patient oriented x3 Neck Neck: Yes normal visual inspection and Yes no JVD Resp Effort & Inspection: normal respiratory effort Auscultation: clear to auscultation bilaterally, no rales, no rhonchi and no wheezes Cardio Jugular venous distension: no JVD Rate: regular rate Rhythm: regular rhythm Heart sounds: S1 normal heart sound present, S2 normal heart sound present, no murmurs and no rubs Neuro General: patient oriented x3 Extrem General: Yes normal to inspection and No no pedal edema Psych Appearance: grossly normal Mental Status: mental status grossly normal Speech and movement: Normal speech and movement present Office Procedures EKG Details: Today, read by me, normal sinus rhythm, no acute ST or T-wave abnormalities, rate 75 [id number], Complete Assessment & Plan Assessment & Plan (1) Paroxysmal atrial fibrillation: Code(s): I48.0 - Paroxysmal atrial fibrillation Plan: New finding of atrial fibrillation on ER presentation 05/04/2023. He was treated with heart rate control and started on Xarelto for anticoagulation prior to his hospital discharge. Echocardiogram done 05/06/2023 showed EF 55-60%, mild LVH, normal valves, mildly dilated left atrium. Prior to his presentation he had reported issues with numbness along the left side of his face and left arm that had since resolved. This was considered to be possible TIA. A CTA of the head and neck on 05/04 2023 showed no acute findings. Holter monitor placed on 05/27/2023 for 2 days showing atrial fibrillation with uncontrolled rate, averaging 112 beats per minute. On the day his monitor was applied he was noted to be in AFib RVR and was sent to the ER for further evaluation . His diltiazem dose was increased from 180 mg daily up to 240 mg daily. On follow-up metoprolol was added. A nuclear stress test was done on 11/21/2023 showing probable normal myocardial perfusion, normal EF. A cardioversion was previously planned however I do not see that this was done at [facility]. An EKG was done today showing normal sinus rhythm, rate 75. He seems to have converted on his own. He denies any recent heart palpitations. He continues on diltiazem and metoprolol for heart rate control. He remain on Xarelto for anticoagulation. Labs done 09/06/2023 showed creatinine 1.06, hematocrit 45.2. Continue current med management. (2) Preop cardiovascular exam: Code(s): Z01.810 - Encounter for preprocedural cardiovascular examination Plan: Patient tells me he is preop for carpal tunnel surgery and for an endoscopy. His Xarelto could be held up to 48 hours prior to each procedure. Chads Vasc score of 2 with presumed prior TIA. Would recommend the use of Lovenox as bridge to his Xarelto. Informed him to take 1 dose of Lovenox the morning of the day before his procedures. Patient may proceed with these procedures with a low cardiac risk. He does have known paroxysmal AFib. Continue diltiazem and metoprolol without interruption. Plan to restart Xarelto as soon as possible postprocedure. Stroke risk off anticoagulation reviewed with him. Paperwork was filled out separately for his dental work. Recommended he stay on anticoagulation for that procedure. If absolutely needed, could hold Xarelto for 1 day. Call/consult Cardiology if needed (3) Essential hypertension: Code(s): I10 - Essential (primary) hypertension Plan: Mild elevation today. No med changes made. (4) TIA (transient ischemic attack): Code(s): G45.9 - Transient cerebral ischemic attack, unspecified Plan: As above. No recurrent facial numbness since his episode in April 2023. He tells me he has had some hand numbness bilateral and is having a nerve conduction study performed Plan Time spent on chart review, documentation, interview and assessment Medications: New enoxaparin (Lovenox) Prior to surgical procedure: Hold Xarelto for 2 days. Take One injection of Lovenox the Morning of the Day before the Surgery. - Following surgery resume Xarelto 100 mg subcut DAILY 1 mL 1RF Bridge for Xarelto Coding Level of Care Code Est Pt Level 4 (27083) Diagnoses Paroxysmal atrial fibrillation I48.0 Preop cardiovascular exam Z01.810 Essential hypertension I10 TIA (transient ischemic attack) G45.9 CPT Codes EKG - CPT: [id number], Complete ([id number]) Time Spent (min) 28
== END 2024-01-09 13:48 | disposition home or self-care (01) ==
PROVIDERS: PCP Internal Medicine; Visit Provider Nurse Practitioner Family
DX: I48.0 Paroxysmal atrial fibrillation (principal)
CPT/HCPCS: 93010; 99214

== ENCOUNTER → 2024-01-09 12:26 | Outpatient (BNVA) | payer OTHER, SELFPAY | PROVIDERS: PCP Internal Medicine; Visit Provider Nurse Practitioner Family | DX: Z01.810 Encounter for preprocedural cardiovascular examination (principal); I48.0 Paroxysmal atrial fibrillation; I10 Essential (primary) hypertension; G45.9 Transient cerebral ischemic attack, unspecified | CPT/HCPCS: 93005; 99212 ==

== ENCOUNTER 2024-03-02 15:08 | Emergency (ER) | payer OTHER, SELFPAY ==
--- NOTE | ~2024-03-02 | XR_ITS ---
EXAMINATION: XR CHEST CLINICAL INFORMATION: Shortness of breath in the patient with atrial fibrillation COMPARISON: None available. TECHNIQUE: Frontal view of the chest was obtained. FINDINGS: No significant abnormality is noted involving the heart, lungs, mediastinum, bony thorax or soft tissues. XR/XR chest 1V IMPRESSION: Unremarkable examination.
--- NOTE | 2024-03-02 15:14 | ECG_ITS ---
Test Reason : CHEST PAIN Blood Pressure : / mmHG Vent. Rate : 150 BPM Atrial Rate : 300 BPM P-R Int : 000 ms QRS Dur : 084 ms QT Int : 298 ms P-R-T Axes : 157 034 010 degrees QTc Int : 470 ms Atrial flutter with 2:1 A-V conduction Nonspecific ST abnormality Abnormal ECG When compared with ECG of 27-MAY-2023 13:06, Vent. rate has increased BY 78 BPM QRS duration has decreased ST now depressed in Inferior leads ST now depressed in Anterolateral leads Referred By: Paradise Briggs Electronically Signed By:Juan Miguel Mac
[2024-03-02 15:26] VITALS: BP 150/96; PULSE 146; RESP 12; TEMP 37.3; O2SAT 97; BMI 29.9
--- NOTE | 2024-03-02 15:42 | ED_ITS ---
HPI - Chest Pain General Chief Complaint: Chest Pain Stated Complaint: chest pain,sob Time Seen by Provider: 03/02/24 15:31 Source: patient Mode of arrival: ambulatory Limitations: no limitations History of Present Illness HPI narrative: Patient comes to the emergency room complaining of chest pressure and palpitations for 5 days. Patient states that he is known to have atrial fibrillation, takes Cardizem every day and Xarelto, patient states that he is compliant with his medications. Related Data Home Medications ?Medication ?Instructions ?Recorded ?Confirmed diphenhydramine HCl 25 mg capsule 25 mg PO TID PRN Rash 05/05/23 01/09/24 (Benadryl) Previous Rx's ?Medication ?Instructions ?Recorded furosemide 20 mg tablet (Lasix) 20 mg PO DAILY 90 days #90 tabs 04/24/23 metoprolol succinate 25 mg 25 mg PO DAILY #30 tabs 06/28/23 tablet,extended release 24 hr pantoprazole 40 mg tablet,delayed 40 mg PO DAILY 90 days #90 tabs 09/19/23 release wrist splint bilateral #2 ea 09/19/23 diltiazem HCl 240 mg 240 mg PO DAILY 90 days #90 caps 12/16/23 capsule,extended release 24 hr (Cardizem CD) rivaroxaban 20 mg tablet (Xarelto) 20 mg PO DAILY 90 days #90 tabs 12/16/23 enoxaparin 100 mg/mL subcutaneous 100 mg subcut DAILY Bridge for 01/10/24 syringe (Lovenox) Xarelto #1 mL blood pressure test kit-large #1 ea 02/16/24 (TapZen Blood Pressure Monitor kit) baclofen 20 mg tablet 20 mg PO BID PRN Muscle Spasm 30 02/25/24 days #60 tabs nabumetone 500 mg tablet 500 mg PO BID 90 days #180 tabs 02/25/24 diltiazem HCl 300 mg 300 mg PO DAILY #30 caps 03/02/24 capsule,extended release 24 hr Allergies Allergy/AdvReac Type Severity Reaction Status Date / Time No Known Allergies Allergy Verified 03/02/24 15:30 Review of Systems 2 Review of Systems: Constitutional : No Weight loss, No Fever, No Chills, No Night Sweats, No Fatigue, No Malaise ENT/Mouth : No Hearing loss, No Ear Pain, No Nasal Congestion, No Sinus Pain, No Hoarseness, No sore throat, No Rhinorrhea, No Swallowing Difficulty Eyes: No Eye Pain, No Swelling, No Redness, No Foreign Body, No Discharge, No Vision Changes Cardiovascular : Complaining of chest pressure, no pain, palpitations, shortness of breath. Respiratory : No Cough, No Sputum, No Wheezing, No Smoke Exposure, No Dyspnea Gastrointestinal : No Nausea, No Vomiting, No Diarrhea, No Constipation, No abdominal Pain, No Hematochezia, No Melena Genitourinary : no irregular bleeding, No Dysuria, No Urinary Frequency, No Hematuria, No Urinary Incontinence, No Urgency, No Flank Pain, No Urinary Flow Changes, No Hesitancy Musculoskeletal : No joint pain, No Myalgias, No Joint Swelling Skin : No Skin Lesions, No rash Neuro : No Weakness, No Numbness, No Paresthesias, No Loss of Consciousness, No Dizziness, No Headache Psych : No Anxiety/Panic, No Depression, No SI/HI/AH/VH, No Social Issues, Heme/Lymph: No Bruising, No Bleeding,No Lymphadenopathy Endocrine : No Polyuria, No Polydipsia, No Temperature Intolerance [facility] Past Medical History Medical History Essential hypertension Atrial fibrillation, new onset Lumbar spondylosis Chronic GERD History of echocardiogram Surgical History History of colonoscopy History of endoscopy History of cholecystectomy Family History Family History Mother Embolism Father Stomach cancer, Onset Age: 60 Sister Mental health disorder Family/Other Mental health disorder Social History Social History Housing: House Alcohol intake: never Comment: N/A Patient Tobacco Use Status: Never used Tobacco Smoked in Last 30 Days: No e-Cigarette/Vaping Use: Never Used Second Hand Smoke Exposure: No Use of substances other than those prescribed or required for medical reasons: No Advance Directives: No Advance Directives Information Provided: No Do you have a plan to hurt others: No Plan service: No Current occupational status: unemployed 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 Oriented X3. No acute distress. Eyes: Pupils equal, round and reactive to light. ENT: Pharynx normal. Neck: Normal inspection. Neck supple. No lymph nodes noted. No crepitus CVS: Heart rate irregularly irregular, in the 140s to 150s, +1 pitting edema in lower extremities bilaterally Respiratory: No respiratory distress. Breath sounds normal. No Wheezing. No rales Abdomen: Soft and nontender. No rigidity. No distention. Skin: Skin warm and dry. Normal skin color. Normal skin turgor. Extremities: +1 pitting edema bilaterally lower extremities No Lacerations. No Rash Neuro: Oriented X 3. No motor deficit. No sensory deficit. Moving all extremities. No slurred speech. CN 2 through 12 grossly intact Psych: calm, cooperative, normal affect Course Course Course Narrative: -patient states he is compliant with medications, currently in AFib versus a flutter, heart rate in the 150s, blood pressure 150/96 checked twice -patient states that he take Cardizem daily and Xarelto. Patient states that intermittently he takes metoprolol if his heart rate is too high but suspended if his blood pressure drops. Today patient did not take metoprolol. Medications Administered Discontinued Medications Generic Name Dose Route Start Last Admin Trade Name Kobe PRN Reason Stop Dose Admin Diltiazem HCl 20 mg 03/02/24 15:40 03/02/24 15:43 Diltiazem Hcl 50 Mg/10 Ml Vial IVPUSH 03/02/24 15:41 20 mg STAT STA Administration Medical Decision Making Medical Decision Making [facility] [place] Narrative: -my interpretation of EKG: Atrial flutter with a 2-1 AV conduction, heart rate 150, no ST segment depression or elevation, QTC 470 -patient received a dose of diltiazem 20 mg, patient's heart rate improved, constantly in the 70s now. -patient was ambulated around the emergency room, patient's heart rate remained in the 70s, heart rate 1 . Asymptomatic. -my interpretation of labs: Hematology and chemistry, negative troponin, BNP 142. -my interpretation of chest x-ray: No CHF or infiltrates - Differential Diagnosis Differential Diagnoses: The differential diagnosis associated with the presentation includes (Atrial fibrillation, atrial flutter, SVT, NSTEMI) Admission/Observation Consideration of admission/observation: Escalation of care including admission/observation considered (Patient was in AFib with RVR, admission/observation was considered) Lab Data MDM Lab Attestation statement: I reviewed the patient's lab results. 03/02/24 15:50 03/02/24 15:50 Labs: Lab Results 03/02/24 Range/Units 15:50 WBC 7.4 (4.8-10.8) X10*3/uL RBC 5.14 (4.60-5.80) X10*6/uL Hgb 15.3 (14.0-18.0) g/dl Hct 45.3 (42.0-52.0) % MCV 88.1 (80.0-98.0) fL MCH 29.8 (27.0-33.0) pg MCHC 33.8 (31.0-36.0) g/dl RDW 12.1 (11.0-16.0) % Plt Count 213 (160-400) X10*3/uL MPV 10.2 (9.4-12.4) fL Immature Gran % (Auto) 0.3 (0.0-0.4) % Neut % (Auto) 70.2 (45-73) % Lymph % (Auto) 21.0 (20-40) % Robertson % (Auto) 7.3 (2-11) % Eos % (Auto) 0.8 (0-4) % Baso % (Auto) 0.4 (0-2) % Lymph # (Auto) 1.5 (1.2-4.9) X10*3/uL Robertson # (Auto) 0.5 (0.1-1.2) X10*3/uL Eos # (Auto) 0.1 (0.0-0.4) X10*3/uL Baso # (Auto) 0.0 (0.0-0.2) X10*3/uL Abs Immat Gran (auto) 0.02 (0.00-0.03) X10*3/uL Absolute Neuts (auto) 5.2 (2.0-8.3) x10*3/uL Absolute Nucleated RBC 0.000 (0.0-0.012) X10*3/uL Nucleated RBC % (auto) 0.0 (0.0-0.2) /100WBC Sodium 140 (135-145) mmol/L Potassium 3.4 (3.3-5.1) mmol/L Chloride 104 (96-108) mmol/L Carbon Dioxide 24 (22-29) mmol/L Anion Gap 15 (12-20) BUN 19 H (9-16) mg/dL Creatinine 1.19 (0.5-1.4) mg/dL Estim Creat Clear Calc 80.4 Estimated GFR > 60 Random Glucose 156 H (60-115) mg/dL Calcium 9.9 (8.4-10.2) mg/dL Total Bilirubin 0.3 (0.0-1.0) mg/dL Direct Bilirubin 0.1 (0.0-0.5) mg/dL AST 32 (5-37) U/L ALT 24 (0-40) U/L Alkaline Phosphatase 75 (39-117) U/L Troponin I High Sens 4.3 (<3.5-35.0) ng/L B-Natriuretic Peptide 142 H (<100) pg/mL Total Protein 8.0 (6.5-8.0) g/dL Albumin 4.5 (3.5-5.0) g/dL Independent Interpretation I performed an independent interpretation of an: EKG and Plain X-Ray Radiology Impression Discussion of test interpretation with radiology: I have reviewed the radiologist's reading. Radiologist Impression: FINDINGS: No significant abnormality is noted involving the heart, lungs, mediastinum, bony thorax or soft tissues. XR/XR chest 1V IMPRESSION: Unremarkable examination. Independent Historian Clinical information obtained from an independent historian. History obtained from or confirmed by: Other (Atrial fibrillation) Critical Care Time Critical Care Time Critical Care Time: Yes Total Critical Care Time: 60 Attestation: I have personally provided critical care time. Time includes review of lab data, radiology results, discussion with consultants, and monitoring for potential decompensation. Intervention performed as documented. Discharge Plan Discharge Clinical Impression: Atrial fibrillation with RVR Patient Disposition: Home, Self-Care Instructions: A-fib (Atrial Fibrillation) (ED) Additional Instructions: Your dose of diltiazem has been increased to 300 mg daily. Please follow-up with your primary care physician tomorrow. If you have any worsening or new symptoms, please return to the emergency room or call 911 Prescriptions: New diltiazem HCl 300 mg capsule,extended release 24hr 300 mg PO DAILY Qty: 30 0RF No Action furosemide [Lasix] 20 mg tablet 20 mg PO DAILY 90 Days Qty: 90 1RF diltiazem HCl [Cardizem CD] 240 mg capsule,extended release 24hr 240 mg PO DAILY 90 Days Qty: 90 1RF Xarelto 20 mg tablet 20 mg PO DAILY 90 Days Qty: 90 1RF (DME) blood pressure test kit-large [TapZen BP Monitor] Kit See Rx Instructions .Route Qty: 1 0RF Rx Instructions: As directed baclofen 20 mg tablet 20 mg PO BID PRN (Reason: Muscle Spasm) 30 Days Qty: 60 1RF nabumetone 500 mg tablet 500 mg PO BID 90 Days Qty: 180 1RF diphenhydramine HCl [Benadryl] 25 mg Capsule 25 mg PO TID PRN (Reason: Rash) (DME) wrist splint bilateral large See Rx Instructions .Route .MEDSUPPLY Qty: 2 0RF Rx Instructions: As directed pantoprazole 40 mg tablet,delayed release (DR/EC) 40 mg PO DAILY 90 Days Qty: 90 1RF metoprolol succinate 25 mg tablet extended release 24 hr 25 mg PO DAILY Qty: 30 3RF enoxaparin [Lovenox] 100 mg/mL syringe 100 mg subcut DAILY Qty: 1 1RF Rx Instructions: Prior to surgical procedure: Hold Xarelto for 2 days. Take One injection of Lovenox the Morning of the Day before the Surgery. - Following surgery resume Xarelto Referrals: Viki Foreman [facility] [Nurse Practitioner] - 03/03/24 Print Language: Tamazight
[2024-03-02 15:43] VITALS: BP 135/88; PULSE 137; RESP 14; O2SAT 97
[2024-03-02] MEDS: dilTIAZem HCL 50 MG/10 ML VIAL 20 MG IVPUSH (15:43)
--- NOTE | 2024-03-02 15:50 | PC.NURSE ---
this rn assumed care of pt from waiting room. ekg performed pt found to be in aflutter. dr mccain to bedside. iv placed pt placed on monitor technician. pt medicated accroding to dec. labs send down
[2024-03-02 15:58] LABS: MANUAL DIFF FLAG NO
[2024-03-02 16:00] LABS: Basophils Percent Auto 0.4 % (0-2); Eosinophils Absolute Auto 0.1 X10*3/uL (0.0-0.4); Eosinophils Percent Auto 0.8 % (0-4); Hematocrit 45.3 % (42.0-52.0); Hemoglobin 15.3 g/dl (14.0-18.0); Imm Gran Abs Auto 0.02 X10*3/uL (0.00-0.03); Imm Gran Pct Auto 0.3 % (0.0-0.4); Lymphocytes Absolute Auto 1.5 X10*3/uL (1.2-4.9); Mean Corpuscular HGB Conc 33.8 g/dl (31.0-36.0); Mean Corpuscular Hemoglobin 29.8 pg (27.0-33.0); Mean Corpuscular Volume 88.1 fL (80.0-98.0); Mean Platelet Volume 10.2 fL (9.4-12.4); Monocytes Absolute Auto 0.5 X10*3/uL (0.1-1.2); Monocytes Percent Auto 7.3 % (2-11); Neutrophils Absolute Auto 5.2 x10*3/uL (2.0-8.3); Neutrophils Percent Auto 70.2 % (45-73); Platelet Count 213 X10*3/uL (160-400); Red Blood Count 5.14 X10*6/uL (4.60-5.80); Red Cell Distribution Width 12.1 % (11.0-16.0); White Blood Count 7.4 X10*3/uL (4.8-10.8)
[2024-03-02 16:15] VITALS: BP 112/81; PULSE 73; RESP 12; O2SAT 98
[2024-03-02 16:24] LABS: Alanine Aminotransferase 24 U/L (0-40); Albumin Level 4.5 g/dL (3.5-5.0); Alkaline Phosphatase 75 U/L (39-117); Anion Gap 15 (12-20); Aspartate Amino Transferase 32 U/L (5-37); Bilirubin Direct 0.1 mg/dL (0.0-0.5); Bilirubin Total 0.3 mg/dL (0.0-1.0); Blood Urea Nitrogen 19 mg/dL (9-16); Calcium 9.9 mg/dL (8.4-10.2); Carbon Dioxide 24 mmol/L (22-29); Chloride 104 mmol/L (96-108); Creatinine Clr Calc Pharmacy 80.4; Estimated Glomerular Filt Rate > 60; Glucose Random 156 mg/dL (60-115); Potassium 3.4 mmol/L (3.3-5.1); Sodium 140 mmol/L (135-145)
[2024-03-02 16:30] LABS: Troponin-I High Sensitivity 4.3 ng/L (<3.5-35.0)
--- NOTE | 2024-03-02 16:51 | PC.NURSE ---
technician preventative medicine walked pt up and down pan. post walk pt HR 97-103. dr mccain made aware
[2024-03-02 17:18] LABS: B Type Natriuretic Peptide 142 pg/mL (<100)
[2024-03-02 17:25] VITALS: BP 122/82; PULSE 83; RESP 13; TEMP 37; O2SAT 97
[2024-03-02 17:50] VITALS: BP 143/74; PULSE 89; RESP 14; TEMP 36.7; O2SAT 97
== END 2024-03-02 17:51 | disposition home or self-care (01) ==
PROVIDERS: Emergency Provider Emergency Medicine; PCP Internal Medicine
DX: I48.20 Chronic atrial fibrillation, unspecified (principal); R06.02 Shortness of breath; R07.9 Chest pain, unspecified; Z79.01 Long term (current) use of anticoagulants; Z86.73 Personal history of transient ischemic attack (TIA), and cerebral infarction without residual deficits
CPT/HCPCS: 36415; 71045; 80048; 80076; 83880; 84484; 85025; 93005; 96374; 99284

== ENCOUNTER → 2024-03-02 15:14 | Outpatient (BNV) | payer OTHER, SELFPAY | PROVIDERS: Emergency Provider Emergency Medicine; PCP Internal Medicine; Visit Provider Internal Medicine Cardiovascular Disease | DX: I48.4 Atypical atrial flutter (principal) | CPT/HCPCS: 93010 ==

== ENCOUNTER 2024-03-10 12:59 | Outpatient (REF) | payer OTHER, SELFPAY ==
--- NOTE | ~2024-03-10 | XR_ITS ---
EXAMINATION: XR LUMBOSACRAL SPINE CLINICAL INFORMATION: Sciatica, right side COMPARISON: None available. TECHNIQUE: Three views of the lumbosacral spine. FINDINGS: There 5 nonrib-bearing lumbar-type vertebral bodies and a transitional lumbosacral vertebral body which for the purposes study will be called S1. The height of the vertebral bodies is well-maintained. There is mild curve of the upper lumbar spine, convex right which may be due to patient positioning, muscle spasm or true mild scoliosis. There is no significant disc space narrowing. Marginal osteophytes are most notable at L2-L3. There is no spondylolisthesis. No significant degenerative facet joint disease. Surgical clips are seen in the right upper quadrant. 0.3 cm calcification K hennessy projects over the left upper kidney. There are several calcifications in the pelvis likely representing phleboliths. XR/XR lumbar spine 2-3V IMPRESSION: Mild curve of the upper lumbar spine, convex right which may be due to patient positioning, muscle spasm or true mild scoliosis.
[2024-03-10 14:35] LABS: HBS Num1 0.74 mIU/mL (0-7.99); HBc Num1 0.27 S/CO (0.00-0.79); HBsAGNum1 0.36 S/CO (0.00-0.99); Hepatitis B Core Antibody Nonreactive (Nonreactive); Hepatitis B Surface Antigen Negative (Negative); ~Hepatitis B Surface Antibody NONREACTIVE (Nonreactive)
[2024-03-10 14:58] LABS: PSA,Total (Free>4and<10) 1.12 ng/mL (0.00-4.00)
[2024-03-11 08:23] LABS: Mumps Virus IgG Antibody <9.00 AU/mL; Rubeola IgG (Measles) >300.00 AU/mL
== END 2024-03-10 13:00 | disposition home or self-care (01) ==
LOC: HO.XRAY 12:59
PROVIDERS: PCP Internal Medicine; Visit Provider Internal Medicine
DX: Z12.5 Encounter for screening for malignant neoplasm of prostate (principal); Z01.84 Encounter for antibody response examination; M54.31 Sciatica, right side; M54.32 Sciatica, left side
CPT/HCPCS: 36415; 72100; 84153; 86704; 86706; 86735; 86762; 86765; 87340

== ENCOUNTER 2024-03-23 09:07 | Outpatient (AMB) | payer OTHER, SELFPAY ==
[2024-03-23 09:15] VITALS: BP 136/100; PULSE 145; O2SAT 98; BMI 29.4
--- NOTE | 2024-03-23 09:15 | MHC.PC.OV ---
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 Required: No Accompanied by: Self / Same As Patient Allergies No Known Allergies Allergy (Verified 03/23/24 09:35) Medication List - Last Reconciled 03/23/24 by Sandrita Segura MD baclofen 20 mg PO BID PRN 30 days blood pressure test kit-large ([employer] Blood Pressure Monitor kit) As directed diltiazem HCl CD 300 mg PO DAILY diphenhydramine HCl (Benadryl) 25 mg PO TID PRN enoxaparin (Lovenox) 100 mg subcut DAILY furosemide (Lasix) 20 mg PO DAILY 90 days metoprolol succinate ER 25 mg PO DAILY nabumetone 500 mg PO BID 90 days pantoprazole 40 mg PO DAILY 90 days rivaroxaban (Xarelto) 20 mg PO DAILY 90 days [wrist splint bilateral As directed] Tobacco use date assessed: 03/23/24 Dental Screening Dental Screen Date: 03/23/24 Did you have a dental visit in the last 12 months?: No Did you have a dental problem in the last 6 months where you did not have access to dental care?: No Was dental information given to patient?: Patient has dentist HPI HPI Comments History of Present Illness Details This is a 58-year-old male with hypertension, persistent atrial fibrillation, GERD and lumbar spondylosis that comes today for follow-up on his conditions. Blood pressure stable. On chronic anticoagulation for atrial fibrillation. Heart rate still elevated and I will increase metoprolol. GERD stable with PPIs. Still complains of low back pain and a burning like pain on the right lower leg that bothers him. Will start him on gabapentin. Will order ultrasound duplex to rule out DVT. Has mild major depression and follow up visit was requested. [facility] Medical History (Updated 03/23/24 @ 11:53 by Sandrita Segura MD) Paroxysmal atrial fibrillation Essential hypertension Atrial fibrillation, new onset Lumbar spondylosis Chronic GERD History of echocardiogram Surgical History History of colonoscopy History of endoscopy History of cholecystectomy Family History Mother Embolism Father Stomach cancer, Onset Age: 60 Sister Mental health disorder Family/Other Mental health disorder Social History Housing: House Alcohol intake: never Comment: N/A Patient Tobacco Use Status: Never used Tobacco e-Cigarette/Vaping Use: Never Used Second Hand Smoke Exposure: No service: No Current occupational status: unemployed 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 1. Little interest or pleasure in doing things: not at all 2. Feeling down, depressed, or hopeless: not at all 3. Trouble falling or staying asleep, or sleeping too much: several days 4. Feeling tired or having little energy: several days 5. Poor appetite or overeating: not at all 6. Feeling bad about yourself - or that you are a failure or have let yourself or your family down: not at all 7. Trouble concentrating on things, such as reading the newspaper or watching television: not at all 8. Moving or speaking so slowly that other people could have noticed. Or the opposite - being so fidgety or restless that you have been moving around a lot more than usual: not at all 9. Thoughts that you would be better off or of hurting yourself in some way: not at all Total score: 2 Depression Screening Interpretation: Positive Depression Screening Follow-up: Existing condition and Follow-up Visit Requested Depression Screening Done: Yes 56401 - PHQ-9 Billing: Yes Source: Developed by Drs. Soto Carmen, Nataliya Chavis, Josemanuel Garza and colleagues, with an educational nilda from [employer]. Thrive Questionnaire Date Thrive assessed: 03/23/24 I am a: Patient What is your living situation today?: I have a steady place to live Within the past 12 months, did the food you bought not last and you didn't have the money to get more?: Never true Within the past 12 months, did you worry whether your food would run out before you got money to buy more?: Never true Do you have trouble paying for medicines?: No Do you have trouble getting transportation to medical appointments?: No Do you have trouble paying your heating and electricity bill?: No Do you have trouble taking care of your child, family member or friend?: No Do you have trouble with day-to-day activities such as bathing, preparing meals, shopping, managing finances, etc.?: No Are you currently unemployed and looking for a job?: No Are you interested in more education?: No Please select the resources that you would like help with: None Currently or been in a relationship where the following occur: no concerns reported THRIVE Score: 0 AUDIT C Alcohol Use Questionnaire (AUDIT-C) 1. How often do you have a drink containing alcohol?: Never Total Score: 0 Score Reviewed/Action Taken: No JOSR-7 AMB Questionnaire JOSR-7 Date JOSR - 7 assessed: 03/23/24 Feeling nervous, anxious, or on edge: 1 = Several days Not being able to stop or control worryin = Not at all Worrying too much about different things: 0 = Not at all Trouble relaxin = Several days Being so restless that it is hard to sit still: 0 = Not at all Becoming easily annoyed or irritable: 1 = Several days Feeling afraid as if something awful might happen: 0 = Not at all Total JOSR-7 score (0-4 normal; 5-9 mild; 10-14 moderate; 15-21 severe): 3 Source: Developed by Drs. Soto Carmen, Nataliya Chavis, Josemanuel Garza and colleagues, with an educational nilda from [employer]. JOSR-7 Assessment Billing JOSR-7 Assessment Tool: JOSR-7 Assessment 29735 Review of Systems Const All systems reviewed & are unremarkable except as noted in HPI and below Card Denies chest pain at rest, Denies chest pain with activity, Denies edema, Denies irregular heart rhythm, Denies claudication, Denies dyspnea, Denies dyspnea on exertion, Denies orthopnea, Denies paroxysmal nocturnal dyspnea and Denies slow heart rate Resp Denies cough, Denies dyspnea and Denies dyspnea on exertion Musc Reports back pain Neuro Denies lack of coordination Physical exam (Primary Care) Vital Signs: Last Vital Signs Pulse 145 H 03/23/24 09:15 BP 138/90 H 03/23/24 09:34 Pulse Ox 98 03/23/24 09:15 Oxygen Delivery Method Room Air 03/23/24 09:15 BMI result Body Mass Index 29.4 Tobacco/Smoking Status: Tobacco use Status Tobacco use date assessed 03/23/24 03/23/24 09:28 Patient Tobacco Use Status Never used Tobacco 03/23/24 09:28 e-Cigarette/Vaping Use Never Used 03/23/24 09:28 PHQ-9: PHQ-9 Score PHQ-9: Total score 2 03/23/24 09:48 Depression Screening Interpretation: Positive Depression Screening Follow-up: Existing condition and Follow-up Visit Requested Thrive Assessment: Date of Thrive Assessment Date Thrive assessed 03/23/24 03/23/24 09:28 Currently or been in a relationship where the following occur: no concerns reported Resp Effort & Inspection: normal respiratory effort Auscultation: clear to auscultation bilaterally Cardio Jugular venous distension: no JVD Rhythm: abnormal rhythm irregularly irregular Heart sounds: S1 normal heart sound present and S2 normal heart sound present Back/Spine/Pelvis Thoracic/Lumbar Spine: straight leg raise negative bilaterally Extrem General: Yes full ROM Assessment and Plan Assessment & Plan (1) Essential hypertension: Code(s): I10 - Essential (primary) hypertension Plan: Continue diltiazem. Blood pressure goal is equal or less than 130/80. (2) Chronic GERD: Code(s): K21.9 - Gastro-esophageal reflux disease without esophagitis Plan: Continue PPIs. (3) Persistent atrial fibrillation: Comment: sched for stress test and cardioversion- 07/29 Code(s): I48.19 - Other persistent atrial fibrillation Plan: Continue Xarelto. Increase metoprolol. Follow-up with Cardiology. The goal is heart rate control. (4) Lumbar spondylosis: Code(s): M47.816 - Spondylosis without myelopathy or radiculopathy, lumbar region Plan: Referred to pain management. Start gabapentin. (5) Mild major depression: Code(s): F32.0 - Major depressive disorder, single episode, mild Plan: Follow-up visit requested. Orders: Orders US venous duplex LE RT Today M79.604 - Pain in right leg Referrals Pain Management Referral M54.31 - Sciatica, right side, M54.32 - Sciatica, left side Medications: New metoprolol succinate ER 50 mg PO DAILY 90 days 90 tabs 0RF gabapentin 100 mg PO BEDTIME 90 days 90 caps 0RF Refilled pantoprazole 40 mg PO DAILY 90 days 90 tabs 1RF Discontinued metoprolol succinate ER Discontinued Reason: Patient Completed Course 25 mg PO DAILY 30 tabs 3RF Coding Level of Care Code Est Pt Level 4 (19194) Complex EM visit Add On G2211 Diagnoses Essential hypertension I10 Chronic GERD K21.9 Persistent atrial fibrillation I48.19 Lumbar spondylosis M47.816 Mild major depression F32.0 Additional Codes JOSR-7 Assessment Billing - JOSR-7 Assessment Tool: JOSR-7 Assessment 32454 ([id number]) Time Spent (min) 24
[2024-03-23 09:34] VITALS: BP 138/90
== END 2024-03-23 09:51 | disposition home or self-care (01) ==
PROVIDERS: PCP Internal Medicine; Visit Provider Internal Medicine
DX: I10 Essential (primary) hypertension (principal); I48.19 Other persistent atrial fibrillation; F32.0 Major depressive disorder, single episode, mild; K21.9 Gastro-esophageal reflux disease without esophagitis; M47.816 Spondylosis without myelopathy or radiculopathy, lumbar region
CPT/HCPCS: 99214; G2211

== ENCOUNTER 2024-03-23 10:19 | Outpatient (REF) | payer OTHER, SELFPAY ==
--- NOTE | ~2024-03-23 | US_ITS ---
EXAMINATION: US VENOUS ULTRASOUND WITH DOPPLER LOWER EXTREMITY, RIGHT CLINICAL INFORMATION: Pain in right leg COMPARISON: None available. TECHNIQUE: Ultrasound of the deep veins is performed from the hip to the calf with compression sonography and color and pulse Doppler assessment. Spectral analysis with color-flow imaging is performed. FINDINGS: There is normal venous compression and respiratory variation. The visualized common femoral vein, superficial femoral vein, profunda femoral vein, popliteal vein, and the posterior tibial and peroneal veins show no evidence of deep venous thrombosis. The contralateral common femoral vein demonstrates normal respiratory variation. US/US venous duplex LE RT IMPRESSION: No DVT demonstrated in the right lower extremity.
== END 2024-03-23 10:20 | disposition home or self-care (01) ==
LOC: HO.US 10:19
PROVIDERS: PCP Internal Medicine; Visit Provider Internal Medicine
DX: M79.604 Pain in right leg (principal)
CPT/HCPCS: 93971

== ENCOUNTER 2024-04-07 09:34 | Outpatient (AMB) | payer OTHER, SELFPAY ==
--- NOTE | 2024-04-07 10:07 | AM.OFFVISNUR ---
Intake Intake Visit Reasons: MMR vaccine Allergies No Known Allergies Allergy (Verified 03/23/24 09:35) Immunizations M-M-R II (PF) 1,000-12,500 TCID50/0.5 mL subcutaneous solution Performing Provider: Sandrita Segura MD Performing Location: [facility] Administered by: Mony Nicole RN on 04/07/24 10:19 Dose Route Admin Location Dispensed Lot Number Expiration Date NDC Manager Generation 0.5 mL subcut Left Arm 0.5 mL [id number] 12/25/24 0089-1979-58 [employer] D VIS Given Date VIS Provided VIS Publication Date 04/07/24 Single Vaccine 21 Eligibility Eligibility Date Funding Source Not [facility] Eligible 04/07/24 Private Coding Assessment & Plan Assessment & Plan Orders: Orders MMR Immunization Today Z23 - Encounter for immunization Medications: New M-M-R II (PF) (measles,mumps,rubella vacc(PF)) 0.5 mL subcut ONCE 1 ea 0RF NS Z23 - Encounter for immunization
== END 2024-04-07 10:27 | disposition home or self-care (01) ==
PROVIDERS: PCP Internal Medicine; Visit Provider Internal Medicine
DX: Z23 Encounter for immunization (principal)
CPT/HCPCS: 90471; 90707

== ENCOUNTER 2024-04-10 08:17 | Outpatient (AMB) | payer OTHER, SELFPAY ==
--- NOTE | 2024-04-10 08:51 | A.OFFVIS_ITS ---
Vital Signs 04/10/24 08:52 Height 5 ft 11 in Weight 212 lb 1.355 oz BMI 29.6 BP 148/72 H Blood Pressure Location Lt brachial Position Sitting Pulse 61 Pulse Source Monitor Intake Visit Reasons: [facility] fu req- sob/cp Counter Control Operator Required: Yes Counter Control Operator Name: Kurtis/zoieenrike/nepali Accompanied by: Self / Same As Patient Allergies No Known Allergies Allergy (Verified 03/23/24 09:35) Medication List - Last Reconciled 04/10/24 by JULES Nolan baclofen 20 mg PO BID PRN 30 days blood pressure test kit-large (ResiModel Blood Pressure Monitor kit) As directed diltiazem HCl CD 300 mg PO DAILY diphenhydramine HCl (Benadryl) 25 mg PO TID PRN enoxaparin (Lovenox) 100 mg subcut DAILY furosemide (Lasix) 20 mg PO DAILY 90 days gabapentin 100 mg PO BEDTIME 90 days metoprolol succinate ER 50 mg PO DAILY 90 days nabumetone 500 mg PO BID 90 days pantoprazole 40 mg PO DAILY 90 days rivaroxaban (Xarelto) 20 mg PO DAILY 90 days [wrist splint bilateral As directed] HPI HPI [facility] fu req- sob/cp: Details: Anton is a 58-year-old male with past medical history of TIA, paroxysmal AFib who was recently seen in the emergency room for shortness of breath and chest pressure. He was found to have AFib RVR and was treated with IV diltiazem. His heart rate improved and he was discharged with increased dose of p.o. diltiazem. He admitted to not taking metoprolol routinely due to concerns of low blood pressure. Today he reports that he will feel heart palpitations, chest discomfort and shortness of breath at times when his heart rate is elevated. It was recently elevated at his PCP office and his metoprolol dose was increased. He again tells me he does not take it consistently. He brings a list of blood pressures and I do not see any hypotension. His lowest blood pressure seem to be in the 1 teens systolic. He does not get chest discomfort or shortness of breath at other times. No lightheadedness, presyncope, syncope, falls. No PND, orthopnea or edema. No bleeding issues with Xarelto use. He has not had his carpal tunnel surgery yet wore his endoscopy. 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 [facility] Medical History Paroxysmal atrial fibrillation Essential hypertension Atrial fibrillation, new onset Lumbar spondylosis Chronic GERD History of echocardiogram Surgical History History of colonoscopy History of endoscopy History of cholecystectomy Family History Mother Embolism Father Stomach cancer, Onset Age: 60 Sister Mental health disorder Family/Other Mental health disorder Social History Housing: House Alcohol intake: never Comment: N/A Patient Tobacco Use Status: Never used Tobacco e-Cigarette/Vaping Use: Never Used Second Hand Smoke Exposure: No service: No Current occupational status: unemployed 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 Cognitive needs: No Hearing needs: No Vision needs: Yes Review of Systems Const All systems reviewed & are unremarkable except as noted in HPI and below Denies chills, Denies fatigue, Denies fever(s), Denies frequent falls, Denies weakness, Denies weight gain and Denies weight loss ENT Details: lightheaded when BP is low Denies dizziness Card Details: intermittent palpitations with sob and pressure in chest Denies chest pain, Denies leg edema, Denies lightheadedness, Denies palpitations, Denies dyspnea and Denies dyspnea on exertion Resp Denies cough, Denies dyspnea and Denies dyspnea on exertion GI Denies hematochezia Musc Denies abnormal gait, Denies muscle weakness, Denies numbness, Denies radiating pain into limb and Denies tingling Neuro Denies abnormal gait, Denies dizziness, Denies frequent falls, Denies numbness, Denies tingling and Denies weakness Endo Denies fatigue and Denies palpitations Physical Exam Const General: cooperative, healthy appearing, comfortable and no acute distress Orientation/consciousness: patient oriented x3 Neck Neck: Yes normal visual inspection and Yes no JVD Resp Effort & Inspection: normal respiratory effort Auscultation: clear to auscultation bilaterally, no crackles, no rales, no rhonchi and no wheezes Cardio Jugular venous distension: no JVD Rate: regular rate Rhythm: regular rhythm Heart sounds: S1 normal heart sound present, S2 normal heart sound present, no murmurs and no rubs Neuro General: patient oriented x3 Extrem General: Yes normal to inspection, No no pedal edema and No calf tenderness Psych Appearance: grossly normal Mental Status: mental status grossly normal Speech and movement: Normal speech and movement present Office Procedures EKG Details: Today, read by me, sinus rhythm, no acute ST or T-wave abnormalities, rate 61, QTC 444 milliseconds [id number], Complete Assessment & Plan Assessment & Plan (1) Paroxysmal atrial fibrillation: Code(s): I48.0 - Paroxysmal atrial fibrillation Category: Medical Plan: New finding of atrial fibrillation on ER presentation 05/04/2023. He was treated with heart rate control and started on Xarelto for anticoagulation prior to his hospital discharge. Echocardiogram done 05/06/2023 showed EF 55-60%, mild LVH, normal valves, mildly dilated left atrium. Prior to his presentation he had noted issues with numbness along the left side of his face and left arm that had resolved. This was considered to be possible TIA. A CTA of the head and neck on 05/04 2023 showed no acute findings. Holter monitor placed on 05/27/2023 for 2 days showing atrial fibrillation with uncontrolled rate, averaging 112 beats per minute. On the day his monitor was applied he was noted to be in AFib RVR and was sent to the ER for further evaluation . His diltiazem dose was increased from 180 mg daily up to 240 mg daily. On follow-up metoprolol was added. A nuclear stress test was done on 11/21/2023 showing probable normal myocardial perfusion, normal EF. A cardioversion was previously planned however I do not see that this was done at [facility]. An EKG was done last visit showing normal sinus rhythm, rate 75. He seemed to have converted on his own. He was seen in the emergency room on 03/02/2024 with chest discomfort and shortness of breath. He is found to have AFib RVR and was treated with IV diltiazem. His diltiazem dose was further titrated upward to 300 mg daily. He admitted to not taking the metoprolol daily due to concerns about low blood pressure readings. He had elevated heart rate again when he went to his PCP office and she increa sed his metoprolol from 25 mg up to 50 mg daily. Today he reports that he has been feeling generally well in the last 2 weeks. He will feel intermittent symptoms that he believes is AFib. EKG done today shows normal sinus rhythm with no acute ST or T-wave abnormalities, rate 61. He is still not taking metoprolol consistently. He will take the diltiazem 300 mg daily. Since he is having ongoing issues with symptomatic PAF will discuss antiarrhythmic use with his primary music autographer. Plan to call him with plan of care and med adjustment. At present continue on diltiazem. Continue Xarelto for anticoagulation. Cardiology follow-up to be determined. (2) Preop cardiovascular exam: Code(s): Z01.810 - Encounter for preprocedural cardiovascular examination Category: Medical Plan: Patient tells me he is preop for carpal tunnel surgery and for an endoscopy. His Xarelto could be held up to 48 hours prior to each procedure. Chads Vasc score of 2 with presumed prior TIA. Would recommend the use of Lovenox as bridge to his Xarelto. Informed him to take 1 dose of Lovenox the morning of the day before his procedures. Patient may proceed with these procedures with a low cardiac risk. He does have known paroxysmal AFib. Continue diltiazem and metoprolol without interruption. Plan to restart Xarelto as soon as possible postprocedure. Stroke risk off anticoagulation reviewed with him. Paperwork was filled out separately for his dental work. Recommended he stay on anticoagulation for that procedure. If absolutely needed, could hold Xarelto for 1 day. Call/consult Cardiology if needed (3) Essential hypertension: Code(s): I10 - Essential (primary) hypertension Category: Medical Plan: Mild elevation today. No med changes made. (4) TIA (transient ischemic attack): Code(s): G45.9 - Transient cerebral ischemic attack, unspecified Category: Medical Plan: As above. No recurrent facial numbness since his episode in April 2023. He tells me he has had some hand numbness bilateral and is having a nerve conduction study performed Plan Time spent on chart review, documentation, interview and assessment Coding Level of Care Code Est Pt Level 4 (05959) Diagnoses Paroxysmal atrial fibrillation I48.0 Preop cardiovascular exam Z01.810 Essential hypertension I10 TIA (transient ischemic attack) G45.9 CPT Codes EKG - CPT: 61015-[id number], Complete ([id number]) Time Spent (min) 36
[2024-04-10 08:52] VITALS: BP 148/72; PULSE 61; BMI 29.6
== END 2024-04-10 09:30 | disposition home or self-care (01) ==
PROVIDERS: PCP Internal Medicine; Visit Provider Nurse Practitioner Family
DX: I48.0 Paroxysmal atrial fibrillation (principal); Z01.810 Encounter for preprocedural cardiovascular examination; I10 Essential (primary) hypertension; G45.9 Transient cerebral ischemic attack, unspecified
CPT/HCPCS: 93010; 99214

== ENCOUNTER → 2024-04-10 08:17 | Outpatient (BNVA) | payer OTHER, SELFPAY | PROVIDERS: PCP Internal Medicine; Visit Provider Nurse Practitioner Family | DX: Z01.810 Encounter for preprocedural cardiovascular examination (principal); I48.0 Paroxysmal atrial fibrillation; I10 Essential (primary) hypertension; G45.9 Transient cerebral ischemic attack, unspecified | CPT/HCPCS: 93005; 99212 ==

== ENCOUNTER 2024-04-13 10:59 | Outpatient (AMB) | payer OTHER, SELFPAY ==
--- NOTE | 2024-04-13 11:12 | MHC.OFFVIS ---
Vital Signs 04/13/24 11:21 Height 5 ft 11 in Weight 211 lb BMI 29.4 BP 177/86 H Blood Pressure Location Lt brachial Position Sitting Pulse 67 Pulse Source Pulse Oximeter Pulse Oximetry (%) 99 Oxygen Delivery Method Room Air Intake Visit Reasons: Sciatica Right and Left Side Intake Note: Pain today 6/10 Manufacturing Quality Technician Required: Yes Manufacturing Quality Technician Language: White Shoe Ragger Name: Reta [id number] Allergies No Known Allergies Allergy (Verified 04/13/24 11:24) HPI HPI Sciatica Right and Left Side: Details: Patient is a 58-year-old Macedonian-speaking male with chronic low back pain presents today for initial evaluation worsening low back pain with radiation into his right lower extremity. Denies any recent trauma, injury or falls. 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 Back pain is axial with radiation into his right anterior thigh and into his right hennessy and top of the right foot with numbness and tingling and occasional heaviness. Patient also reports medial and plantar heel pain with walking which is worst in the morning. He denies any previous spine surgery or injections. Pain affects his daily activities and functioning, mobility, sleep and social interactions. The back pain is worse at night which he rates at 8/10 unless severe in the morning rated at 6/10. Right heel pain is worse in the morning with first few steps and prolonged weight bearing and partially relieved with walking. Patient is on chronic anticoagulation for atrial fibrillation. To this point he has not tried any dedicated conservative treatment in the forms of physical therapy, chiropractic, acupuncture or injections. He is interested to pursue formal physical therapy. Denies any fever, chills, abdominal or groin pain, night sweats, weight loss, bladder or bowel dysfunction or saddle anesthesia. Reports right lower extremity weakness due to pain. Uses cane with ambulation. Location: Lower back radiates down right leg and right foot; right heel pain Duration: Chronic pain for > 10 years, worsening since February 2024 Characteristics of symptom or complaint: Aching, sharp, shooting, burning, tiring, tight, squeezing Aggravating or associated factors: Walking, climbing stairs, prolonged standing, bending, lifting, pulling Relieving factors: Right heel-walking; back-resting, ice/heat, baclofen, gabapentin, Tylenol Treatment: Stretching exercises PFSH Medical History Paroxysmal atrial fibrillation Essential hypertension Atrial fibrillation, new onset Lumbar spondylosis Chronic GERD History of echocardiogram Surgical History History of colonoscopy History of endoscopy History of cholecystectomy Family History Mother Embolism Father Stomach cancer, Onset Age: 60 Sister Mental health disorder Family/Other Mental health disorder Social History Housing: House Alcohol intake: never Comment: N/A Patient Tobacco Use Status: Never used Tobacco e-Cigarette/Vaping Use: Never Used Second Hand Smoke Exposure: No service: No Current occupational status: unemployed 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 Alert and oriented. Mood and affect appropriate. Follows and participates in conversation appropriately. Respiratory effort is unlabored. No cough. No nasal discharge. Able to transition from sit to stand unassisted. Ambulates with bilaterally normal heel strike and toe off. General: Yes no CVA tenderness Back/Spine/Pelvis Other: Limited lumbar ROM due to pain. Antalgic gait with mild limping. Can flex forward to 65-70 degrees and extend to 5-10 degrees before experiencing lumbar pain. Demonstrates 5/5 left and 4/5 right strength of quadriceps bilaterally as well as 5/5 left and 4/5 right flexion/dorsiflexion of bilateral feet against resistance. 2+ pedal pulses bilaterally. Straight leg rise with dorsiflexion negative bilaterally. +1 patellar and achilles reflexes bilaterally. Facet loading test positive bilaterally. Jailene sign +bilaterally, Mike's test reproduces lateral hip pain but not back pain. Pelvic compression and Stinchfield tests are positive bilaterally, right>left. Mild TTP to right GTB. No groin pain with I/E hip rotations. Valsalva maneuver negative. Back: no CVA tenderness Cervical Spine: cervical ROM normal, cervical muscular tenderness, No Cervical spine scars present and No Cervical spine tenderness Thoracic/Lumbar Spine: thoracic and lumbar spine normal to inspection, No Thoracic/lumbar spine scar(s), Lasegue's sign negative, straight leg raise negative bilaterally, No kyphosis, pain with thoraco-lumbar ROM, paraspinal muscle tenderness, thoraco-lumbar ROM limited, Thoracic/lumbar scoliosis, No thoracic spinal tenderness and lumbar spinal tenderness (L4-S1) Pelvis: buttock tenderness bilaterally Sacroiliac joints: bilaterally tender to palpation Extrem General: Yes capillary refill normal, Yes no clubbing, cyanosis or edema and Yes no calf tenderness Right lower extremity: ankle (Limited ankle dorsiflexion due to pain. TTP medial and plantar areas) Details: tenderness and swelling Details: laterally and medially; no unusual warmth, no lacerations and no ecchymosis Results Reviewed Results Reviewed: XR LUMBOSACRAL SPINE 03/10/24 CLINICAL INFORMATION: Sciatica, right side COMPARISON: None available. TECHNIQUE: Three views of the lumbosacral spine. FINDINGS: There 5 nonrib-bearing lumbar-type vertebral bodies and a transitional lumbosacral vertebral body which for the purposes study will be called S1. The height of the vertebral bodies is well-maintained. There is mild curve of the upper lumbar spine, convex right which may be due to patient positioning, muscle spasm or true mild scoliosis. There is no significant disc space narrowing. Marginal osteophytes are most notable at L2-L3. There is no spondylolisthesis. No significant degenerative facet joint disease. Surgical clips are seen in the right upper quadrant. 0.3 cm calcification K hennessy projects over the left upper kidney. There are several calcifications in the pelvis likely representing phleboliths. IMPRESSION: Mild curve of the upper lumbar spine, convex right which may be due to patient positioning, muscle spasm or true mild scoliosis. US venous duplex LE RT 03/23/24 IMPRESSION: No DVT demonstrated in the right lower extremity. Assessment & Plan Assessment & Plan (1) Right foot pain: Code(s): M79.671 - Pain in right foot Category: Medical (2) Plantar fasciitis of right foot: Code(s): M72.2 - Plantar fascial fibromatosis Category: Medical (3) Lumbar spondylosis: Code(s): M47.816 - Spondylosis without myelopathy or radiculopathy, lumbar region Category: Medical (4) Dextroscoliosis of thoracic spine: Code(s): M41.84 - Other forms of scoliosis, thoracic region Category: Medical (5) Lumbar paraspinal muscle spasm: Code(s): M62.830 - Muscle spasm of back Category: Medical (6) Sacroiliac joint pain: Code(s): M53.3 - Sacrococcygeal disorders, not elsewhere classified Category: Medical Plan Will obtain right foot imaging to rule out bone spurs. Right heel pain is consistent with plantar fasciitis. Discussed self-management at home such as ice therapy, stretching exercises and Tylenol. Patient can not take NSAIDs due to anticoagulation on Xarelto for AFib relation. Recommend formal physical therapy for low back pain with right-sided radicular symptoms. SLR testing is negative today. Back pain is facet mediated with SIJ and discogenic pain components. Script provided for PT closer to patient's home per patient's request. We briefly discuss interventional treatment options for chronic low back pain. Informational brochures provided to patient today. All questions and concerns have been answered and patient agreed with the treatment plan. Follow-up in 1-2 months to see response to physical therapy, if no response to physical therapy will consider further interventional strategy. Orders: Orders XR foot RT min 3V Today M72.2 - Plantar fascial fibromatosis, M79.671 - Pain in right foot PT Evaluation and Treatment Today M41.84 - Other forms of scoliosis, thoracic region, M47.816 - Spondylosis without myelopathy or radiculopathy, lumbar region, M53.3 - Sacrococcygeal disorders, not elsewhere classified, M62.830 - Muscle spasm of back Medications: Discontinued diltiazem HCl CD Discontinued Reason: Doctor's Order 300 mg PO DAILY 30 caps 0RF Coding Level of Care Code New Pt Level 4 (21893) Diagnoses Right foot pain M79.671 Plantar fasciitis of right foot M72.2 Lumbar spondylosis M47.816 Dextroscoliosis of thoracic spine M41.84 Lumbar paraspinal muscle spasm M62.830 Sacroiliac joint pain M53.3
[2024-04-13 11:21] VITALS: BP 177/86; PULSE 67; O2SAT 99; BMI 29.4
== END 2024-04-13 11:55 | disposition home or self-care (01) ==
PROVIDERS: PCP Internal Medicine; Visit Provider Nurse Practitioner Family
DX: M79.671 Pain in right foot (principal); M72.2 Plantar fascial fibromatosis; M47.816 Spondylosis without myelopathy or radiculopathy, lumbar region; M41.84 Other forms of scoliosis, thoracic region; M62.830 Muscle spasm of back; M53.3 Sacrococcygeal disorders, not elsewhere classified
CPT/HCPCS: 99204

== ENCOUNTER 2024-04-13 10:59 | Outpatient (REF) | payer OTHER, SELFPAY ==
--- NOTE | ~2024-04-13 | XR_ITS ---
EXAMINATION: XR FOOT, RIGHT CLINICAL INFORMATION: Patient is having a lot of pain in his right foot. COMPARISON: None available. TECHNIQUE: AP, lateral, and oblique views of the right foot. FINDINGS: Small dorsal and plantar calcaneal spurs. Mild degenerative changes in the first metatarsophalangeal joint. No acute displaced fracture appreciated. XR/XR foot RT min 3V IMPRESSION: Small dorsal and plantar calcaneal spurs.
== END 2024-04-13 11:00 | disposition home or self-care (01) ==
LOC: HO.XRAY 10:59
PROVIDERS: PCP Internal Medicine; Visit Provider Nurse Practitioner Family
DX: M79.671 Pain in right foot (principal); M72.2 Plantar fascial fibromatosis; M47.816 Spondylosis without myelopathy or radiculopathy, lumbar region; M41.84 Other forms of scoliosis, thoracic region; M62.830 Muscle spasm of back; M53.3 Sacrococcygeal disorders, not elsewhere classified
CPT/HCPCS: 73630; 99202

== ENCOUNTER → 2024-04-29 08:58 | Outpatient (BNVA) | payer OTHER, SELFPAY | PROVIDERS: PCP Internal Medicine; Visit Provider Nurse Practitioner Family ==

== ENCOUNTER 2024-05-18 13:47 | Outpatient (AMB) | payer OTHER, SELFPAY ==
[2024-05-18 13:53] VITALS: BP 150/80; BMI 27.9
--- NOTE | 2024-05-18 13:53 | MHC.PC.OV ---
Vital Signs 05/18/24 13:53 05/18/24 15:26 Height 5 ft 11 in Weight 200 lb BMI 27.9 BP 150/80 H 150/80 H Blood Pressure Location Lt brachial Lt brachial Position Sitting Sitting Intake Visit Reasons: regular visit Intake Note: Patient here c/o jaw, throat discomfort, excessive saliva Dietary Server Required: No Accompanied by: Self / Same As Patient Allergies No Known Allergies Allergy (Verified 05/18/24 14:08) Medication List - Last Reconciled 05/18/24 by Sandrita Segura MD baclofen 20 mg PO BID PRN 30 days blood pressure test kit-large ([place] [employer] Blood Pressure Monitor kit) As directed diphenhydramine HCl (Benadryl) 25 mg PO TID PRN dronedarone (Multaq) 400 mg PO BID enoxaparin (Lovenox) 100 mg subcut DAILY furosemide (Lasix) 20 mg PO DAILY 90 days gabapentin 100 mg PO BEDTIME 90 days metoprolol succinate ER 50 mg PO DAILY 90 days nabumetone 500 mg PO BID 90 days pantoprazole 40 mg PO DAILY 90 days rivaroxaban (Xarelto) 20 mg PO DAILY 90 days [wrist splint bilateral As directed] Tobacco use date assessed: 03/23/24 Dental Screening Dental Screen Date: 03/23/24 HPI HPI Comments History of Present Illness Details This is a 59-year-old male with persistent atrial fibrillation on chronic anticoagulation, mild major depression in remission and essential hypertension that complains of sore throat, non quantified fever and lymphadenopathy that started about 3 days ago. Some right ear discomfort also. No cough. Atrial fibrillation follow by cardiology and denies any active bleeding. Blood pressure elevated and I will add losartan. Blood pressure will be recheck in 3 weeks by nurse navigator. FORMERLY [facility], [facility]–1983 Medical History (Updated 05/18/24 @ 15:24 by Sandrita Segura MD) Paroxysmal atrial fibrillation Essential hypertension Atrial fibrillation, new onset Lumbar spondylosis Chronic GERD History of echocardiogram Surgical History History of colonoscopy History of endoscopy History of cholecystectomy Family History Mother Embolism Father Stomach cancer, Onset Age: 60 Sister Mental health disorder Family/Other Mental health disorder Social History Housing: House Alcohol intake: never Comment: N/A Patient Tobacco Use Status: Never used Tobacco e-Cigarette/Vaping Use: Never Used Second Hand Smoke Exposure: No service: No Current occupational status: unemployed 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 Soto Carmen, Nataliya Chavis, Josemanuel Garza and colleagues, with an educational nilda from [employer]. Review of Systems Const All systems reviewed & are unremarkable except as noted in HPI and below Reports fatigue, Reports fever(s) and Reports lethargy ENT Reports sore throat Card Denies chest pain at rest, Denies chest pain with activity, Denies edema, Denies irregular heart rhythm, Denies claudication, Denies dyspnea, Denies dyspnea on exertion, Denies orthopnea, Denies paroxysmal nocturnal dyspnea and Denies slow heart rate Resp Denies cough, Denies dyspnea and Denies dyspnea on exertion Endo Reports fatigue Physical exam (Primary Care) Vital Signs: Last Vital Signs BP 150/80 H 05/18/24 13:53 BMI result Body Mass Index 27.9 Tobacco/Smoking Status: Tobacco use Status Tobacco use date assessed 03/23/24 05/18/24 13:59 Patient Tobacco Use Status Never used Tobacco 05/18/24 13:59 e-Cigarette/Vaping Use Never Used 05/18/24 13:59 Thrive Assessment: Date of Thrive Assessment Date Thrive assessed 03/23/24 05/18/24 13:59 HENMT Ears: hearing grossly normal bilaterally, external ears normal and TM's normal bilaterally Neck Neck: Yes lymphadenopathy Resp Effort & Inspection: normal respiratory effort Auscultation: clear to auscultation bilaterally Cardio Jugular venous distension: no JVD Rate: regular rate Rhythm: regular rhythm Heart sounds: S1 normal heart sound present and S2 normal heart sound present Extrem General: Yes full ROM Results AMB Rapid Strep AMB Rapid Strep Positive Last Edit by JALIL Valverde on 05/18/24 14:34 Results Reviewed Results Reviewed: Laboratory Last Values Strep Scn Rapid Clinic Positive 05/18/24 14:33 Assessment and Plan Assessment & Plan (1) Strep pharyngitis: Code(s): J02.0 - Streptococcal pharyngitis Plan: Start Augmentin. (2) Mild major depression: Code(s): F32.0 - Major depressive disorder, single episode, mild Plan: In remission. (3) Persistent atrial fibrillation: Comment: sched for stress test and cardioversion- 07/29 Code(s): I48.19 - Other persistent atrial fibrillation Plan: Continue Xarelto. Continue Multaq. Follow-up with Cardiology. The goal is heart rate control. (4) Essential hypertension: Code(s): I10 - Essential (primary) hypertension Plan: Start losartan. Blood pressure goal is equal or less than 130/80. Recheck blood pressure with nurse navigator in 3 weeks. Orders: Orders Lipid Panel Today I48.19 - Other persistent atrial fibrillation Comprehensive [place]. Panel Fast Today I48.19 - Other persistent atrial fibrillation Complete Blood Count Auto Diff Today I48.19 - Other persistent atrial fibrillation AMB Rapid Strep Screen Today Z13.9 - Encounter for screening, unspecified Medications: New losartan 25 mg PO DAILY 90 tabs 1RF 90 days I10 - Essential (primary) hypertension nystatin administer 1/2 of dose in each side of the mouth 100,000 units PO DAILY 7 mL 0RF 7 days B37.0 - Candidal stomatitis amoxicillin-pot clavulanate 875-125 mg 1 tab PO BID 14 tabs 0RF 7 days Coding Level of Care Code Est Pt Level 4 (41561) Complex EM visit Add On G2211 Diagnoses Strep pharyngitis J02.0 Mild major depression F32.0 Persistent atrial fibrillation I48.19 Essential hypertension I10 Time Spent (min) 20
[2024-05-18 15:26] VITALS: BP 150/80
== END 2024-05-18 14:54 | disposition home or self-care (01) ==
PROVIDERS: PCP Internal Medicine; Visit Provider Internal Medicine
DX: J02.0 Streptococcal pharyngitis (principal); F32.0 Major depressive disorder, single episode, mild; I48.19 Other persistent atrial fibrillation; I10 Essential (primary) hypertension; Z13.9 Encounter for screening, unspecified
CPT/HCPCS: 87880; 99214; G2211

== ENCOUNTER 2024-06-23 12:42 | Outpatient (AMB) | payer OTHER, SELFPAY ==
[2024-06-23 13:08] VITALS: BP 160/82; PULSE 58; BMI 28.4
--- NOTE | 2024-06-23 13:08 | A.OFFVIS_ITS ---
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: Screw Machine Operator Services: Cake Press Operator Helper Present Allergies No Known Allergies Allergy (Verified 06/23/24 13:09) Medication List - Last Reconciled 06/23/24 by Viki Foreman WHEEL FITTER-C baclofen 20 mg PO BID PRN 30 days blood pressure test kit-large ([employer] Blood Pressure Monitor kit) As directed diphenhydramine HCl (Benadryl) 25 mg PO TID PRN dronedarone (Multaq) 400 mg PO BID enoxaparin (Lovenox) 100 mg subcut DAILY furosemide (Lasix) 20 mg PO DAILY 90 days gabapentin 100 mg PO BEDTIME 90 days losartan 25 mg PO DAILY 90 days metoprolol succinate ER 50 mg PO DAILY 90 days nabumetone 500 mg PO BID 90 days nystatin 100,000 units PO DAILY 7 days pantoprazole 40 mg PO DAILY 90 days rivaroxaban (Xarelto) 20 mg PO DAILY 90 days [wrist splint bilateral As directed] HPI HPI 6 month follow up : Details: Anton is a 59-year-old male with past medical history of TIA, paroxysmal AFib, who was started on Multaq for rhythm control and now presents for follow-up. Today he reports that he has been feeling very well since the start of Multaq. He has not been having any concerning heart palpitations. He denies having any chest discomfort at rest or with activity. No lightheadedness, presyncope, syncope, falls. No PND, orthopnea or edema. No bleeding issues with Xarelto use. He reports good activity tolerance. He brings a list of home blood pressure and pulse rates. His blood pressure runs 108-132 systolic over 50s to 60s diastolic, heart rate mostly in the 50s to 60s. 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 [facility] Medical History Paroxysmal atrial fibrillation Essential hypertension Atrial fibrillation, new onset Lumbar spondylosis Chronic GERD History of echocardiogram Surgical History History of colonoscopy History of endoscopy History of cholecystectomy Family History Mother Embolism Father Stomach cancer, Onset Age: 60 Sister Mental health disorder Family/Other Mental health disorder Social History Housing: House Alcohol intake: never Comment: N/A Patient Tobacco Use Status: Never used Tobacco e-Cigarette/Vaping Use: Never Used Second Hand Smoke Exposure: No service: No Current occupational status: unemployed 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 Cognitive needs: No Hearing needs: No Vision needs: Yes Review of Systems Const All systems reviewed & are unremarkable except as noted in HPI and below ENT Denies dizziness Card Denies chest pain, Denies chest pain at rest, Denies chest pain with activity, Denies rapid heart rate, Denies pedal edema, Denies edema, Denies leg edema, D enies lightheadedness, Denies palpitations, Denies dyspnea, Denies dyspnea on exertion and Denies orthopnea Resp Denies cough, Denies dyspnea and Denies dyspnea on exertion GI Denies hematochezia and Denies change in stool character Musc Denies abnormal gait, Denies limited range of motion, Denies muscle cramps, Denies muscle weakness, Denies numbness, Denies radiating pain into limb, Denies stiffness and Denies tingling Neuro Denies abnormal gait, Denies dizziness, Denies numbness and Denies tingling Endo Denies palpitations Physical Exam Vital Signs: Last Vital Signs Pulse 58 06/23/24 13:08 BP 160/82 H 06/23/24 13:08 BMI result Body Mass Index 28.4 Const General: cooperative, healthy appearing, comfortable and no acute distress Orientation/consciousness: patient oriented x3 Resp Effort & Inspection: normal respiratory effort Auscultation: clear to auscultation bilaterally, no rales, no rhonchi and no wheezes Cardio Jugular venous distension: no JVD Rate: regular rate Rhythm: regular rhythm Heart sounds: S1 normal heart sound present, S2 normal heart sound present, no murmurs and no rubs Neuro General: patient oriented x3 Extrem General: Yes normal to inspection, No no pedal edema and No calf tenderness Psych Appearance: grossly normal Mental Status: mental status grossly normal Speech and movement: Normal speech and movement present Office Procedures EKG Details: Today, read by me, sinus bradycardia, no acute ST or T-wave abnormalities, QTC 426 milliseconds, rate 58 [id number], Complete Assessment & Plan Assessment & Plan (1) Paroxysmal atrial fibrillation: Code(s): I48.0 - Paroxysmal atrial fibrillation Category: Medical Plan: New finding of atrial fibrillation on ER presentation 05/04/2023. Prior to his presentation he had noted issues with numbness along the left side of his face and left arm that had resolved. This was considered to be possible TIA. A CTA of the head and neck on 05/04 2023 showed no acute findings. He has put on diltiazem for rate control and Xarelto for anticoagulation. Since then he has had paroxysmal atrial fibrillation which was treated with diltiazem and metoprolol. Echocardiogram done 05/06/2023 showed EF 55-60%, mild LVH, normal valves, mildly dilated left atriu m. Holter monitor placed on 05/27/2023 for 2 days showing atrial fibrillation with uncontrolled rate, averaging 112 beats per minute. Following last visit he was started on Multaq 400 mg b.i.d., continued on metoprolol and diltiazem was stopped. Today he reports he has been doing well since the start of Multaq. He has not been having recurrent heart palpitations. His EKG today shows sinus bradycardia, rate 58, QTC 426 milliseconds. Labs done 03/02/2024 showed creatinine 1.19, hematocrit 45.3. No bleeding issues reported. Continue current med management with Multaq, metoprolol and Xarelto. Office EKG in 3 months. Cardiology follow-up with EKG in 6 months. (2) Essential hypertension: Code(s): I10 - Essential (primary) hypertension Category: Medical Plan: Elevated today on initial check. Recheck done by me 148/76. Home blood pressures reviewed, patient brought in a log which shows that his blood pressures are well controlled at home with systolic ranging between 108 and 132. Will continue current meds including metoprolol, losartan. Recommend that he bring his home blood pressure cuff to his next office visit so that it can be assessed for accuracy. Blood pressure is found to be more elevated then his losartan dose can be increased. (3) TIA (transient ischemic attack): Code(s): G45.9 - Transient cerebral ischemic attack, unspecified Category: Medical Plan: As above. No recurrent facial numbness since his episode in April 2023. Plan Time spent on chart review, documentation, interview and assessment Coding Level of Care Code Est Pt Level 3 (59063) Diagnoses Paroxysmal atrial fibrillation I48.0 Essential hypertension I10 TIA (transient ischemic attack) G45.9 CPT Codes EKG - CPT: 38533-[id number], Complete ([id number]) Time Spent (min) 24
== END 2024-06-23 13:53 | disposition home or self-care (01) ==
PROVIDERS: PCP Internal Medicine; Visit Provider Nurse Practitioner Family
DX: I48.0 Paroxysmal atrial fibrillation (principal); I10 Essential (primary) hypertension; G45.9 Transient cerebral ischemic attack, unspecified
CPT/HCPCS: 93010; 99213

== ENCOUNTER → 2024-06-23 12:42 | Outpatient (BNVA) | payer OTHER, SELFPAY | PROVIDERS: PCP Internal Medicine; Visit Provider Nurse Practitioner Family | DX: I48.0 Paroxysmal atrial fibrillation (principal); I10 Essential (primary) hypertension; G45.9 Transient cerebral ischemic attack, unspecified | CPT/HCPCS: 93005; 99212 ==

== ENCOUNTER 2024-07-31 09:30 | Outpatient (REF) | payer OTHER, SELFPAY ==
[2024-07-31 10:00] LABS: MANUAL DIFF FLAG NO
[2024-07-31 10:56] LABS: Basophils Percent Auto 0.5 % (0-2); Eosinophils Absolute Auto 0.1 X10*3/uL (0.0-0.4); Eosinophils Percent Auto 1.6 % (0-4); Hematocrit 45.5 % (42.0-52.0); Hemoglobin 14.6 g/dl (14.0-18.0); Imm Gran Abs Auto 0.01 X10*3/uL (0.00-0.03); Imm Gran Pct Auto 0.2 % (0.0-0.4); Lymphocytes Absolute Auto 1.1 X10*3/uL (1.2-4.9); Lymphocytes Percent Auto 17.7 % (20-40); Mean Corpuscular HGB Conc 32.1 g/dl (31.0-36.0); Mean Corpuscular Hemoglobin 29.1 pg (27.0-33.0); Mean Corpuscular Volume 90.8 fL (80.0-98.0); Mean Platelet Volume 10.7 fL (9.4-12.4); Monocytes Absolute Auto 0.5 X10*3/uL (0.1-1.2); Monocytes Percent Auto 8.3 % (2-11); Neutrophils Absolute Auto 4.6 x10*3/uL (2.0-8.3); Neutrophils Percent Auto 71.7 % (45-73); Platelet Count 212 X10*3/uL (160-400); Red Blood Count 5.01 X10*6/uL (4.60-5.80); Red Cell Distribution Width 12.6 % (11.0-16.0); White Blood Count 6.4 X10*3/uL (4.8-10.8)
[2024-07-31 11:16] LABS: Alanine Aminotransferase 21 U/L (0-40); Albumin Level 4.3 g/dL (3.5-5.0); Alkaline Phosphatase 62 U/L (39-117); Anion Gap 14 (12-20); Aspartate Amino Transferase 22 U/L (5-37); Bilirubin Total 0.4 mg/dL (0.0-1.0); Blood Urea Nitrogen 14 mg/dL (9-16); Calcium 9.6 mg/dL (8.4-10.2); Carbon Dioxide 28 mmol/L (22-29); Chloride 102 mmol/L (96-108); Cholesterol 158 mg/dL (<200); Estimated Glomerular Filt Rate > 60; Glucose Fasting 103 mg/dL (60-99); HDL Cholesterol 52 mg/dL (>40); LDL Cholesterol Calculated 94 mg/dL (<100); Potassium 4.4 mmol/L (3.3-5.1); Sodium 140 mmol/L (135-145); Total Protein 7.8 g/dL (6.5-8.0); Triglycerides 63 mg/dL (<150)
== END 2024-07-31 09:31 | disposition home or self-care (01) ==
LOC: HO.LAB 09:30
PROVIDERS: PCP Internal Medicine; Visit Provider Internal Medicine
DX: I48.19 Other persistent atrial fibrillation (principal)
CPT/HCPCS: 36415; 80053; 80061; 85025

== ENCOUNTER 2024-08-11 12:57 | Outpatient (AMB) | payer OTHER, SELFPAY ==
[2024-08-11 13:11] VITALS: BP 150/86; BMI 27.8
--- NOTE | 2024-08-11 13:11 | A.OFFPC_ITS ---
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 Required: No Accompanied by: Self / Same As Patient Allergies No Known Allergies Allergy (Verified 08/11/24 13:32) Medication List - Last Reconciled 08/11/24 by Sandrita Segura MD baclofen 20 mg PO BID PRN 30 days blood pressure test kit-large ([employer] Blood Pressure Monitor kit) As directed diphenhydramine HCl (Benadryl) 25 mg PO TID PRN dronedarone (Multaq) 400 mg PO BID enoxaparin (Lovenox) 100 mg subcut DAILY furosemide (Lasix) 20 mg PO DAILY 90 days gabapentin 100 mg PO BEDTIME 90 days losartan 25 mg PO DAILY 90 days metoprolol succinate ER 50 mg PO DAILY 90 days nabumetone 500 mg PO BID 90 days nystatin 100,000 units PO DAILY 7 days pantoprazole 40 mg PO DAILY 90 days rivaroxaban (Xarelto) 20 mg PO DAILY 90 days [wrist splint bilateral As directed] Tobacco use date assessed: 03/23/24 Dental Screening Dental Screen Date: 08/11/24 Did you have a dental visit in the last 12 months?: Yes Did you have a dental problem in the last 6 months where you did not have access to dental care?: No Was dental information given to patient?: Patient has dentist HPI HPI Comments History of Present Illness Details This is a 59-year-old male with hypertension, persistent atrial fibrillation, chronic GERD, lumbar spondylosis and mild major depression that comes today complaining of abdominal pain and some changes in bowel movements more with diarrhea and occasional blood in the stools. This has happened few years ago. He has had colonoscopy few years ago which was normal as per patient. Blood pressure stable. On chronic anticoagulation for atrial fibrillation. On PPIs for chronic GERD. Still complains of lower back pain due to lumbar spondylosis and I will increase nabumetone from 500 mg to 750 mg. Patient is aware that Xarelto and NSAIDs such as nabumetone can cause bleeding. [facility] Medical History (Updated 08/11/24 @ 13:39 by Sandrita Segura MD) Paroxysmal atrial fibrillation Essential hypertension Atrial fibrillation, new onset Lumbar spondylosis Chronic GERD History of echocardiogram Surgical History History of colonoscopy History of endoscopy History of cholecystectomy Family History Mother Embolism Father Stomach cancer, Onset Age: 60 Sister Mental health disorder Family/Other Mental health disorder Social History Housing: House Alcohol intake: never Comment: N/A Patient Tobacco Use Status: Never used Tobacco e-Cigarette/Vaping Use: Never Used Second Hand Smoke Exposure: No service: No Current occupational status: unemployed 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 Soto Carmen, Nataliya Chavis, Josemanuel Garza and colleagues, with an educational nilda from [employer]. Review of Systems Const All systems reviewed & are unremarkable except as noted in HPI and below Card Denies chest pain at rest, Denies chest pain with activity, Denies edema, Denies irregular heart rhythm, Denies claudication, Denies dyspnea, Denies dyspnea on exertion, Denies orthopnea, Denies paroxysmal nocturnal dyspnea and Denies slow heart rate Resp Denies cough, Denies dyspnea and Denies dyspnea on exertion GI Reports abdominal pain, Reports change in bowel habits, Denies excessive flatus, Reports diarrhea, Denies nausea and Denies vomiting Physical exam (Primary Care) Vital Signs: Last Vital Signs BP 150/86 H 08/11/24 13:11 BMI result Body Mass Index 27.8 Tobacco/Smoking Status: Tobacco use Status Tobacco use date assessed 03/23/24 08/11/24 13:17 Patient Tobacco Use Status Never used Tobacco 08/11/24 13:17 e-Cigarette/Vaping Use Never Used 08/11/24 13:17 Thrive Assessment: Date of Thrive Assessment Date Thrive assessed 03/23/24 08/11/24 13:17 Resp Effort & Inspection: normal respiratory effort Auscultation: clear to auscultation bilaterally Cardio Jugular venous distension: no JVD Rate: regular rate Rhythm: regular rhythm Heart sounds: S1 normal heart sound present and S2 normal heart sound present GI Inspection: Yes normal to inspection Palpation (GI): Soft to palpation and nontender Auscultation: normal bowel sounds Extrem General: Yes full ROM Office Procedures Flu Questionnaire Does the patient have a severe egg allergy?: No Does the patient have severe life threatening allergies?: No Does the patient have a fever or illness today?: No Has the patient ever had Guillain-[place] Syndrome?: No Has the patient ever had any past reaction to a flu shot?: No Immunizations Fluarix Triv [id number] (PF) 45 mcg (15 mcg x 3)/0.5 mL IM syringe Performing Provider: Sandrita Segura MD [facility] Administered by: JALIL Valverde on 08/11/24 13:21 Dose Route Admin Location Dispensed Lot Number Expiration Date [facility] Policy Change Clerks Supervisor 0.5 mL IM Left Deltoid 0.5 mL [id number] 04/12/25 37256-639-03 [facility] VIS Given Date VIS Provided VIS Publication Date 08/11/24 Single Vaccine 24 Eligibility Eligibility Date Funding Source Not [facility] Eligible 08/11/24 Private Coding Level of Care Code Est Pt Level 4 (92678) Complex EM visit Add On G2211 Diagnoses Mild major depression F32.0 Essential hypertension I10 Persistent atrial fibrillation I48.19 Chronic GERD K21.9 Lumbar spondylosis M47.816 Bloody stools K92.1 Time Spent (min) 23 Assessment & Plan Assessment & Plan (1) Mild major depression: Code(s): F32.0 - Major depressive disorder, single episode, mild Category: Medical Plan: In remission. (2) Essential hypertension: Code(s): I10 - Essential (primary) hypertension Category: Medical Plan: Continue losartan. Blood pressure goal is equal or less than 130/80. (3) Persistent atrial fibrillation: Comment: sched for stress test and cardioversion- 07/29 Code(s): I48.19 - Other persistent atrial fibrillation Category: Medical Plan: Continue metoprolol and Xarelto. The goal is heart rate control. Follow-up with Cardiology. (4) Chronic GERD: Code(s): K21.9 - Gastro-esophageal reflux disease without esophagitis Category: Medical Plan: Continue PPIs. (5) Lumbar spondylosis: Code(s): M47.816 - Spondylosis without myelopathy or radiculopathy, lumbar region Category: Medical Plan: Increase nabumetone from 500 mg to 750 mg. (6) Bloody stools: Code(s): K92.1 - Melena Category: Medical Plan: Referred to Gastroenterology. Orders: Orders Influenza [id number] Immunization Today Z23 - Encounter for immunization Referrals Gastroenterology Referral K92.1 - Melena Medications: New nabumetone 750 mg PO BID PRN 60 tabs 0RF pain 30 days Discontinued nabumetone Discontinued Reason: Order 500 mg PO BID 90 days 180 tabs 1RF
== END 2024-08-11 13:48 | disposition home or self-care (01) ==
LOC: HO.HMCH 12:58
PROVIDERS: PCP Internal Medicine; Visit Provider Internal Medicine
DX: F32.0 Major depressive disorder, single episode, mild (principal); I10 Essential (primary) hypertension; I48.19 Other persistent atrial fibrillation; K21.9 Gastro-esophageal reflux disease without esophagitis; M47.816 Spondylosis without myelopathy or radiculopathy, lumbar region; K92.1 Melena; Z23 Encounter for immunization

== ENCOUNTER → 2024-08-11 12:57 | Outpatient (BNVA) | payer OTHER, SELFPAY | PROVIDERS: PCP Internal Medicine; Visit Provider Internal Medicine | DX: Z23 Encounter for immunization (principal); F32.0 Major depressive disorder, single episode, mild; I10 Essential (primary) hypertension; I48.19 Other persistent atrial fibrillation; K21.9 Gastro-esophageal reflux disease without esophagitis; M47.816 Spondylosis without myelopathy or radiculopathy, lumbar region; K92.1 Melena | CPT/HCPCS: 90471; 90656; 99212 ==

== ENCOUNTER 2024-09-29 09:44 | Outpatient (AMB) | payer OTHER, SELFPAY ==
[2024-09-29 10:04] VITALS: BP 136/82; PULSE 77; O2SAT 97; BMI 27.2
--- NOTE | 2024-09-29 10:04 | A.OFFPC_ITS ---
Vital Signs 09/29/24 10:04 Height 5 ft 11 in Weight 195 lb 4 oz BMI 27.2 BP 136/82 Blood Pressure Location Lt brachial Position Sitting Pulse 77 Pulse Source Pulse Oximeter Pulse Oximetry (%) 97 Oxygen Delivery Method Room Air Intake Visit Reasons: Annual exam Manager Social Required: No Accompanied by: Self / Same As Patient Allergies No Known Allergies Allergy (Verified 09/29/24 10:24) Medication List - Last Reconciled 09/29/24 by Sandrita Segura MD baclofen 20 mg PO BID PRN 30 days blood pressure test kit-large ([employer] Blood Pressure Monitor kit) As directed diphenhydramine HCl (Benadryl) 25 mg PO TID PRN dronedarone (Multaq) 400 mg PO BID enoxaparin (Lovenox) 100 mg subcut DAILY furosemide (Lasix) 20 mg PO DAILY 90 days gabapentin 100 mg PO BEDTIME 90 days losartan 25 mg PO DAILY 90 days metoprolol succinate ER 50 mg PO DAILY 90 days nabumetone 750 mg PO BID PRN 30 days nystatin 100,000 units PO DAILY 7 days pantoprazole 40 mg PO DAILY 90 days rivaroxaban (Xarelto) 20 mg PO DAILY 90 days [wrist splint bilateral As directed] Tobacco use date assessed: 09/29/24 Dental Screening Dental Screen Date: 09/29/24 Did you have a dental visit in the last 12 months?: Yes Did you have a dental problem in the last 6 months where you did not have access to dental care?: No Was dental information given to patient?: Patient has dentist HPI HPI Comments History of Present Illness Details The patient is a 59-year-old male presenting for his physical exam. He reports taking metoprolol 50 mg for his atrial fibrillation and is also on rivaroxaban for anticoagulation. The condition was last assessed with a collector of aquarium specimens, and there is a scheduled follow-up in December. The patient managed episodes of musculoskeletal pain with nabumetone as needed but mentions discomfort when sitting for prolonged periods. Additionally, he experiences persistent insomnia and inquires about non-addictive medication options. The patient was previously advised on amitriptyline for insomnia and migraines, and further management of depression and sleep-related issues. The patient's medical history also includes hypertension, managed with losartan 25 mg, and GERD, for which he takes pantoprazole. He had a cholecystectomy for cholelithiasis following the discovery of a large gallstone. The patient mentioned past screening colonoscopy and endoscopy with findings of reflux, conducted in 2020, which were unremarkable for other pathological conditions. His most recent lab results show an impaired fasting glucose that improved from 111 to 103 mg/dL and resolved hyperlipidemia, with current cholesterol levels at 158 mg/dL. - Tetanus, Diphtheria, Pertussis (Tdap) vaccination administered today - Prior colonoscopy in 2020 with normal results - Fasting blood glucose improved to 103 mg/dL from 111 mg/dL [facility] Medical History (Updated 09/29/24 @ 10:33 by Sandrita Segura MD) Paroxysmal atrial fibrillation Essential hypertension Atrial fibrillation, new onset Lumbar spondylosis Chronic GERD History of echocardiogram Surgical History History of colonoscopy History of endoscopy History of cholecystectomy Family History Mother Embolism Father Stomach cancer, Onset Age: 60 Sister Mental health disorder Family/Other Mental health disorder Social History Housing: House Alcohol intake: never Comment: N/A Patient Tobacco Use Status: Never used Tobacco e-Cigarette/Vaping Use: Never Used Second Hand Smoke Exposure: No service: No Current occupational status: unemployed 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 1. Little interest or pleasure in doing things: not at all 2. Feeling down, depressed, or hopeless: not at all 3. Trouble falling or staying asleep, or sleeping too much: several days 4. Feeling tired or having little energy: several days 5. Poor appetite or overeating: not at all 6. Feeling bad about yourself - or that you are a failure or have let yourself or your family down: not at all 7. Trouble concentrating on things, such as reading the newspaper or watching television: not at all 8. Moving or speaking so slowly that other people could have noticed. Or the opposite - being so fidgety or restless that you have been moving around a lot more than usual: not at all 9. Thoughts that you would be better off or of hurting yourself in some way: not at all Total score: 2 Depression Screening Interpretation: Positive Depression Screening Follow-up: Existing condition, New Medication prescribed and Follow-up Visit Requested Depression Screening Done: Yes 92615 - PHQ-9 Billing: Yes Source: Developed by Drs. Soto Carmen, Nataliya Chavis, Josemanuel Garza and colleagues, with an educational nilda from [employer]. Thrive Questionnaire Date Thrive assessed: 09/29/24 I am a: Patient What is your living situation today?: I have a steady place to live Within the past 12 months, did the food you bought not last and you didn't have the money to get more?: Never true Within the past 12 months, did you worry whether your food would run out before you got money to buy more?: Never true Do you have trouble paying for medicines?: No Do you have trouble getting transportation to medical appointments?: No Do you have trouble paying your heating and electricity bill?: No Do you have trouble taking care of your child, family member or friend?: No Do you have trouble with day-to-day activities such as bathing, preparing meals, shopping, managing finances, etc.?: No Are you currently unemployed and looking for a job?: No Are you interested in more education?: No Please select the resources that you would like help with: None Currently or been in a relationship where the following occur: No concerns reported THRIVE Score: 0 AUDIT C Alcohol Use Questionnaire (AUDIT-C) 1. How often do you have a drink containing alcohol?: Never Total Score: 0 Score Reviewed/Action Taken: No JOSR-7 AMB Questionnaire JOSR-7 Date JOSR - 7 assessed: 09/29/24 Feeling nervous, anxious, or on edge: 0 = Not at all Not being able to stop or control worryin = Not at all Worrying too much about different things: 0 = Not at all Trouble relaxin = Not at all Being so restless that it is hard to sit still: 0 = Not at all Becoming easily annoyed or irritable: 0 = Not at all Feeling afraid as if something awful might happen: 0 = Not at all Total JOSR-7 score (0-4 normal; 5-9 mild; 10-14 moderate; 15-21 severe): 0 Source: Developed by Drs. Soto Carmen, Nataliya Chavis, Josemanuel Garza and colleagues, with an educational nilda from [employer]. JOSR-7 Assessment Billing JOSR-7 Assessment Tool: JOSR-7 Assessment 69870 Review of Systems Const All systems reviewed & are unremarkable except as noted in HPI and below Card Denies chest pain at rest, Denies chest pain with activity, Denies edema, Denies irregular heart rhythm, Denies claudication, Denies dyspnea, Denies dyspnea on exertion, Denies orthopnea, Denies paroxysmal nocturnal dyspnea and Denies slow heart rate Resp Denies cough, Denies dyspnea and Denies dyspnea on exertion Physical exam (Primary Care) Vital Signs: Last Vital Signs Pulse 77 09/29/24 10:04 BP 136/82 09/29/24 10:04 Pulse Ox 97 09/29/24 10:04 Oxygen Delivery Method Room Air 09/29/24 10:04 BMI result Body Mass Index 27.2 Tobacco/Smoking Status: Tobacco use Status Tobacco use date assessed 09/29/24 09/29/24 10:09 Patient Tobacco Use Status Never used Tobacco 09/29/24 10:09 e-Cigarette/Vaping Use Never Used 09/29/24 10:09 PHQ-9: PHQ-9 Score PHQ-9: Total score 2 09/29/24 10:48 Depression Screening Interpretation: Positive Depression Screening Follow-up: Existing condition, New Medication prescribed and Follow-up Visit Requested Thrive Assessment: Date of Thrive Assessment Date Thrive assessed 09/29/24 09/29/24 10:09 Currently or been in a relationship where the following occur: No concerns reported [facility] Head: Yes normal to inspection, Yes normocephalic and Yes atraumatic Ears: external ears normal Eyes General: appearance normal, both eyes and all related structures Eyelids: Yes eyelids normal Conjunctivae: conjunctivae normal Neck Neck: Yes normal visual inspection and Yes supple Resp Effort & Inspection: normal respiratory effort Auscultation: clear to auscultation bilaterally Cardio Jugular venous distension: no JVD Rate: regular rate Rhythm: regular rhythm Heart sounds: S1 normal heart sound present and S2 normal heart sound present GI Inspection: Yes normal to inspection Palpation (GI): Soft to palpation and nontender Auscultation: normal bowel sounds Skin General skin exam: no rashes or lesions noted Neuro General: no focal motor deficits Extrem General: Yes full ROM Psych Appearance: grossly normal Immunizations Boostrix Tdap 2.5 Lf unit-8 mcg-5 Lf/0.5 mL intramuscular syringe Performing Provider: Sandrita Segura MD Performing Location: [facility] Administered by: Homa Saenz LPN on 09/29/24 10:46 Dose Route Admin Location Dispensed Lot Number Expiration Date NDC Beet Worker 0.5 mL IM Left Deltoid 0.5 mL [id number] 07/11/25 [id number] [employer] VIS Given Date VIS Provided VIS Publication Date 09/29/24 Single Vaccine 21 Eligibility Eligibility Date Funding Source Not [facility] Eligible 09/29/24 Private Coding Level of Care Code Est Pt Level 3 (84919) Est Pt Prev Care 40-64y(50634) Diagnoses Physical exam Z00.00 Persistent atrial fibrillation I48.19 Lumbar spondylosis M47.816 Mild major depression F32.0 Thoracic spine pain M54.6 Additional Codes JOSR-7 Assessment Billing - JOSR-7 Assessment Tool: JORS-7 Assessment 96279 ([id number]) PHQ-9 - 70086 - PHQ-9 Billing: Yes ([id number]) Time Spent (min) 33 Assessment & Plan Assessment & Plan (1) Physical exam: Code(s): Z00.00 - Encounter for general adult medical examination without abnormal findings Category: Medical (2) Persistent atrial fibrillation: Comment: sched for stress test and cardioversion- 07/29 Code(s): I48.19 - Other persistent atrial fibrillation Category: Medical (3) Lumbar spondylosis: Code(s): M47.816 - Spondylosis without myelopathy or radiculopathy, lumbar region Category: Medical (4) Mild major depression: Code(s): F32.0 - Major depressive disorder, single episode, mild Category: Medical (5) Thoracic spine pain: Code(s): M54.6 - Pain in thoracic spine Category: Medical Plan - Continue metoprolol and rivaroxaban for atrial fibrillation; maintain follow- up with cardiology. - Amitriptyline prescribed for management of insomnia and migraine prevention, to be taken at night. - Initiate amitriptyline at 10 mg for support in insomnia management due to depression. - Continue with losartan 25 mg for hypertension management. - Maintain pantoprazole for GERD management; condition appears controlled. - Nabumetone to be used as needed for musculoskeletal pain. - Ensure follow-up with cardiology is adhered to, and schedule for echocar diogram is confirmed. Patient was informed and verbally consented to the use of an ambient scribe for clinic note documentation during this visit. I discussed with the patient the importance of managing atrial fibrillation through regular cardiology follow-ups and adherence to prescribed medications including metoprolol and rivaroxaban. Options for insomnia treatment were explored, highlighting the benefits of amitriptyline for both mood and sleep regulation. Non-addictive alternatives were a triana consideration. The management plan supports ongoing hypertension control with losartan and GERD management with pantoprazole. We reviewed lifestyle modifications to support musculoskeletal health, emphasizing the importance of addressing sedentary habits. The patient consented to receiving the Tdap vaccine, and follow-up with his collector of aquarium specimens was emphasized. No new symptoms of chest pain or dyspnea were noted, and routine lab assessments reflect improved glucose levels and maintained cholesterol control. Orders: Orders XR thoracic spine 2V Today M54.6 - Pain in thoracic spine TDaP Immunization Today Z23 - Encounter for immunization Medications: New amitriptyline 10 mg PO BEDTIME 90 tabs 0RF 90 days Patient Instructions: - Take amitriptyline as prescribed for insomnia and migraine prevention. - Continue all current medications for atrial fibrillation and hypertension unless otherwise directed. - Make efforts to reduce prolonged sitting and incorporate activity into daily routines. - Contact the office if experiencing any unusual chest pain or symptoms of concern. - Attend upcoming cardiology appointment in December for further management of atrial fibrillation. - Follow up for any worsening of GERD symptoms.
== END 2024-09-29 10:48 | disposition home or self-care (01) ==
PROVIDERS: PCP Internal Medicine; Visit Provider Internal Medicine
DX: Z00.00 Encounter for general adult medical examination without abnormal findings (principal); I48.19 Other persistent atrial fibrillation; F32.0 Major depressive disorder, single episode, mild; M47.816 Spondylosis without myelopathy or radiculopathy, lumbar region; M54.6 Pain in thoracic spine; Z23 Encounter for immunization

== ENCOUNTER → 2024-09-29 09:44 | Outpatient (BNVA) | payer OTHER, SELFPAY | PROVIDERS: PCP Internal Medicine; Visit Provider Internal Medicine | DX: Z00.00 Encounter for general adult medical examination without abnormal findings (principal); I48.19 Other persistent atrial fibrillation; I10 Essential (primary) hypertension; K21.9 Gastro-esophageal reflux disease without esophagitis; M47.816 Spondylosis without myelopathy or radiculopathy, lumbar region; F32.0 Major depressive disorder, single episode, mild; M54.6 Pain in thoracic spine; Z23 Encounter for immunization; Z79.01 Long term (current) use of anticoagulants; Z79.899 Other long term (current) drug therapy | CPT/HCPCS: 90471; 90715; 96127; 99212; 99396 ==

== ENCOUNTER 2024-10-01 11:09 | Outpatient (REF) | payer OTHER, SELFPAY | END 2024-10-01 11:10 | disposition home or self-care (01) | LOC: HO.XRAY 11:09 | PROVIDERS: PCP Internal Medicine; Visit Provider Internal Medicine | DX: M54.6 Pain in thoracic spine (principal) | CPT/HCPCS: 72070 ==

== ENCOUNTER → 2024-10-12 14:52 | Outpatient (BNVA) | payer OTHER, SELFPAY | PROVIDERS: PCP Internal Medicine; Visit Provider Nurse Practitioner Family ==

== ENCOUNTER 2024-11-13 11:03 | Outpatient (REF) | payer OTHER, SELFPAY ==
--- NOTE | ~2024-11-13 | XR_ITS ---
EXAMINATION: XR CHEST 2 VIEWS HISTORY: J18.9 - Pneumonia, unspecified organism COMPARISON: Comparison is made with the prior examination dated 03/02/2024. FINDINGS: PA and lateral views of the chest are submitted. The lungs are expanded and clear. There is no pleural effusion, pneumothorax, or pulmonary vascular congestion. The heart is normal in size. There is mild degenerative disc disease of the spine. XR/XR chest 2V IMPRESSION: No acute cardiopulmonary abnormality. Electronically signed by: Soto Haines MD 11/13/2024 11:18 AM EST
== END 2024-11-13 11:04 | disposition home or self-care (01) ==
LOC: HO.XRAY 11:03
PROVIDERS: PCP Internal Medicine; Visit Provider Internal Medicine
DX: J18.9 Pneumonia, unspecified organism (principal)
CPT/HCPCS: 71046

== ENCOUNTER → 2024-11-13 11:06 | Outpatient (BNV) | payer OTHER, SELFPAY | PROVIDERS: PCP Internal Medicine; Visit Provider Radiology Diagnostic Radiology | DX: J18.9 Pneumonia, unspecified organism (principal) | CPT/HCPCS: 71046 ==

== ENCOUNTER 2024-12-21 14:27 | Outpatient (AMB) | payer OTHER, SELFPAY ==
--- NOTE | 2024-12-21 14:28 | MHC.OFFVIS ---
Vital Signs 12/21/24 14:30 Height 5 ft 11 in Weight 204 lb 2.369 oz BMI 28.5 BP 140/76 H Blood Pressure Location Lt brachial Position Sitting Pulse 58 Pulse Source Monitor Intake Visit Reasons: 6 mth fu Intake Note: 6 mth f/up Chemical Equipment Repairer Required: Yes Chemical Equipment Repairer Language: Language Instructor Name: [id number] Accompanied by: Self / Same As Patient Allergies No Known Allergies Allergy (Verified 09/29/24 10:24) Medication List - Last Reconciled 12/21/24 by Juan Miguel Mac MD amitriptyline 10 mg PO BEDTIME 90 days baclofen 20 mg PO BID PRN 30 days blood pressure test kit-large ([employer] Blood Pressure Monitor kit) As directed diphenhydramine HCl (Benadryl) 25 mg PO TID PRN dronedarone (Multaq) 400 mg PO BID enoxaparin (Lovenox) 100 mg subcut DAILY furosemide (Lasix) 20 mg PO DAILY 90 days gabapentin 100 mg PO BEDTIME 90 days losartan 25 mg PO DAILY 90 days metoprolol succinate ER 50 mg PO DAILY 90 days nabumetone 750 mg PO BID PRN 30 days pantoprazole 40 mg PO DAILY 90 days rivaroxaban (Xarelto) 20 mg PO DAILY 90 days [wrist splint bilateral As directed] HPI Comments Details: [age] year gentleman who is here for follow-up. He had TIA and was diagnosed with atrial fibrillation. He has been on rivaroxaban and Multaq. He is in sinus rhythm. Denying any significant symptoms on follow-up. He is hypertensive and his blood pressure is 140/76. No bleeding issues. Tolerating meds well. [facility] Medical History (Updated 12/21/24 @ 14:54 by Juan Miguel Mac MD) Paroxysmal atrial fibrillation Essential hypertension Atrial fibrillation, new onset Lumbar spondylosis Chronic GERD History of echocardiogram Surgical History History of colonoscopy History of endoscopy History of cholecystectomy Family History Mother Embolism Father Stomach cancer, Onset Age: 60 Sister Mental health disorder Family/Other Mental health disorder Social History Housing: House Alcohol intake: never Comment: N/A Patient Tobacco Use Status: Never used Tobacco e-Cigarette/Vaping Use: Never Used Second Hand Smoke Exposure: No service: No Current occupational status: unemployed 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 NECK: no carotid bruit, no jugular venous distention. SKIN: no suspicious lesions, warm and dry. HEART: no murmurs, regular rate and rhythm. LUNGS: clear to auscultation bilaterally. ABDOMEN: soft, nontender. EXTREMITIES: no edema. PERIPHERAL PULSES: equal. NEUROLOGIC: No gross deficits, AAO X 3 Office Procedures EKG Details: Sinus bradycardia 58 beats per minute, normal axis, normal ECG, QTC 424 milliseconds. 10087-[id number], Complete Assessment & Plan Assessment & Plan (1) Essential hypertension: Code(s): I10 - Essential (primary) hypertension Category: Medical (2) Paroxysmal atrial fibrillation: Code(s): I48.0 - Paroxysmal atrial fibrillation Category: Medical Plan [age] year gentleman with atrial fibrillation, hypertension and previous TIA. He is on anticoagulation with rivaroxaban. He is in sinus rhythm and has been taking and tolerating Multaq. Blood pressure is elevated. I have advised him to take losartan 25 mg twice a day. A new script has been sent for him. Follow-up in 4 months with Viki. Thank you for allowing me to participate in the care of your patient. Please feel free to contact me if you have any questions. Medications: Changed From losartan 25 mg PO DAILY 90 days 90 tabs 0RF I10 - Essential (primary) hypertension To losartan 25 mg PO BID 90 days 180 tabs 4RF I10 - Essential (primary) hypertension Coding Level of Care Code Est Pt Level 4 (03543) Diagnoses Essential hypertension I10 Paroxysmal atrial fibrillation I48.0 CPT Codes EKG - CPT: 46144-Gdrzafmnliiaxisvl, Complete ([id number])
[2024-12-21 14:30] VITALS: BP 140/76; PULSE 58; BMI 28.5
== END 2024-12-21 14:54 | disposition home or self-care (01) ==
LOC: HO.HCS 14:27
PROVIDERS: PCP Internal Medicine; Visit Provider Internal Medicine Cardiovascular Disease
DX: I10 Essential (primary) hypertension (principal); I48.0 Paroxysmal atrial fibrillation
CPT/HCPCS: 93010; 99214

== ENCOUNTER → 2024-12-21 14:27 | Outpatient (BNVA) | payer OTHER, SELFPAY | PROVIDERS: PCP Internal Medicine; Visit Provider Internal Medicine Cardiovascular Disease | DX: I48.0 Paroxysmal atrial fibrillation (principal); I10 Essential (primary) hypertension; R00.1 Bradycardia, unspecified | CPT/HCPCS: 93005; 99212 ==

== ENCOUNTER 2025-03-30 10:37 | Outpatient (AMB) | payer OTHER, SELFPAY ==
[2025-03-30 10:40] VITALS: BP 140/80; PULSE 68; O2SAT 96; BMI 28.0
--- NOTE | 2025-03-30 10:40 | MHC.PC.OV ---
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 Accompanied by: Self / Same As Patient Allergies No Known Allergies Allergy (Verified 03/30/25 11:04) Medication List - Last Reconciled 03/30/25 by Sandrita Segura MD amitriptyline 10 mg PO BEDTIME 90 days baclofen 20 mg PO BID PRN 30 days blood pressure test kit-large (ixigo Blood Pressure Monitor kit) As directed diphenhydramine HCl (Benadryl) 25 mg PO TID PRN dronedarone (Multaq) 400 mg PO BID enoxaparin (Lovenox) 100 mg subcut DAILY furosemide (Lasix) 20 mg PO DAILY 90 days gabapentin 100 mg PO BEDTIME 90 days losartan 25 mg PO BID 90 days metoprolol succinate ER 50 mg PO DAILY 90 days nabumetone 750 mg PO BID PRN 30 days pantoprazole 40 mg PO DAILY 90 days rivaroxaban (Xarelto) 20 mg PO DAILY 90 days [wrist splint bilateral As directed] Tobacco use date assessed: 03/30/25 Dental Screening Dental Screen Date: 03/30/25 Did you have a dental visit in the last 12 months?: Yes Did you have a dental problem in the last 6 months where you did not have access to dental care?: No Was dental information given to patient?: Patient has dentist HPI HPI Comments History of Present Illness Details The patient is a 59-year-old male presenting for management of multiple chronic conditions including atrial fibrillation, hypertension, and neuropathy. Mild major depression in remission. The patient has a history of atrial fibrillation for which he is currently taking Multaq, metoprolol, and Xarelto. He reports adherence to his medication regimen as prescribed by his conference specialist. The patient also has a history of neuropathy, for which he is taking gabapentin. He describes the neuropathy as affecting his legs, with gabapentin providing some relief. Hypertension is managed with losartan, as recommended by his conference specialist, and he takes it as needed based on his blood pressure readings. The patient experiences back pain, for which he takes nabumetone also feels more pain relieved with Naproxen. He uses this medication sparingly due to concerns about bleeding, especially given his use of Xarelto. He has a history of gastroesophageal reflux disease (GERD) and is taking pantoprazole for management. The patient has been informed of prediabetes, with previous blood sugar levels slightly elevated, and is advised to monitor his diet and exercise. He reports snoring and difficulty sleeping in certain positions, raising concerns about potential sleep apnea. Severely dozed off while watching TV, sitting and reading, lying down after lunch without alcohol and as a passenger in a car with an Quentin score Scale of 12. The patient experiences tingling sensations throughout his body, particularly at night, and has tried Benadryl without relief. He inquires about switching to cetirizine or levocetirizine for better symptom control. [facility] Medical History (Updated 03/30/25 @ 11:12 by Sandrita Segura MD) Paroxysmal atrial fibrillation Essential hypertension Atrial fibrillation, new onset Lumbar spondylosis Chronic GERD History of echocardiogram Surgical History History of colonoscopy History of endoscopy History of cholecystectomy Family History Mother Embolism Father Stomach cancer, Onset Age: 60 Sister Mental health disorder Family/Other Mental health disorder Social History Housing: House Alcohol intake: never Comment: N/A Patient Tobacco Use Status: Never used Tobacco e-Cigarette/Vaping Use: Never Used Second Hand Smoke Exposure: No service: No Current occupational status: unemployed 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 1. Little interest or pleasure in doing things: not at all 2. Feeling down, depressed, or hopeless: not at all 3. Trouble falling or staying asleep, or sleeping too much: not at all 4. Feeling tired or having little energy: not at all 5. Poor appetite or overeating: not at all 6. Feeling bad about yourself - or that you are a failure or have let yourself or your family down: not at all 7. Trouble concentrating on things, such as reading the newspaper or watching television: not at all 8. Moving or speaking so slowly that other people could have noticed. Or the opposite - being so fidgety or restless that you have been moving around a lot more than usual: not at all 9. Thoughts that you would be better off or of hurting yourself in some way: not at all Total score: 0 Depression Screening Interpretation: Negative Depression Screening Done: Yes 54458 - PHQ-9 Billing: Yes Source: Developed by Drs. Soto Carmen, Nataliya Chavis, Josemanuel Garza and colleagues, with an educational nilda from [employer]. Thrive Questionnaire Date Thrive assessed: 03/30/25 I am a: Patient What is your living situation today?: I have a steady place to live Within the past 12 months, did the food you bought not last and you didn't have the money to get more?: Never true Within the past 12 months, did you worry whether your food would run out before you got money to buy more?: Never true Do you have trouble paying for medicines?: No Do you have trouble getting transportation to medical appointments?: No Do you have trouble paying your heating and electricity bill?: No Do you have trouble taking care of your child, family member or friend?: No Do you have trouble with day-to-day activities such as bathing, preparing meals, shopping, managing finances, etc.?: No Are you currently unemployed and looking for a job?: No Are you interested in more education?: No Please select the resources that you would like help with: None Currently or been in a relationship where the following occur: No concerns reported THRIVE Score: 0 AUDIT C Alcohol Use Questionnaire (AUDIT-C) 1. How often do you have a drink containing alcohol?: Never 3. How often do you have six or more drinks on one occasion?: Never Total Score: 0 Score Reviewed/Action Taken: No JOSR-7 AMB Questionnaire JOSR-7 Date JOSR - 7 assessed: 03/30/25 Feeling nervous, anxious, or on edge: 0 = Not at all Not being able to stop or control worryin = Not at all Worrying too much about different things: 0 = Not at all Trouble relaxin = Not at all Being so restless that it is hard to sit still: 0 = Not at all Becoming easily annoyed or irritable: 0 = Not at all Feeling afraid as if something awful might happen: 0 = Not at all Total JOSR-7 score (0-4 normal; 5-9 mild; 10-14 moderate; 15-21 severe): 0 Source: Developed by Drs. Soto Carmen, Nataliya Chavis, Josemanuel Garza and colleagues, with an educational nilda from [employer]. JOSR-7 Assessment Billing JOSR-7 Assessment Tool: JOSR-7 Assessment 98924 Review of Systems Const All systems reviewed & are unremarkable except as noted in HPI and below Card Denies chest pain at rest, Denies chest pain with activity, Denies edema, Denies irregular heart rhythm, Denies claudication, Denies dyspnea, Denies dyspnea on exertion, Denies orthopnea, Denies paroxysmal nocturnal dyspnea and Denies slow heart rate Resp Denies cough, Denies dyspnea and Denies dyspnea on exertion GI Denies abdominal pain, Denies change in bowel habits, Denies excessive flatus, Denies nausea and Denies vomiting Neuro Denies lack of coordination Physical exam (Primary Care) Vital Signs: Last Vital Signs Pulse 68 03/30/25 10:40 BP 140/80 H 03/30/25 10:40 Pulse Ox 96 03/30/25 10:40 Oxygen Delivery Method Room Air 03/30/25 10:40 BMI result Body Mass Index 28.0 Tobacco/Smoking Status: Tobacco use Status Tobacco use date assessed 03/30/25 03/30/25 10:46 Patient Tobacco Use Status Never used Tobacco 03/30/25 10:46 e-Cigarette/Vaping Use Never Used 03/30/25 10:46 PHQ-9: PHQ-9 Score PHQ-9: Total score 0 03/30/25 11:06 Depression Screening Interpretation: Negative Thrive Assessment: Date of Thrive Assessment Date Thrive assessed 03/30/25 03/30/25 10:46 Currently or been in a relationship where the following occur: No concerns reported Resp Effort & Inspection: normal respiratory effort Auscultation: clear to auscultation bilaterally Cardio Jugular venous distension: no JVD Rate: regular rate Rhythm: regular rhythm Heart sounds: S1 normal heart sound present and S2 normal heart sound present Extrem General: Yes full ROM Coding Level of Care Code Est Pt Level 4 (61590) Complex EM visit Add On G2211 Diagnoses Daytime somnolence R40.0 Essential hypertension I10 Mild major depression F32.0 Persistent atrial fibrillation I48.19 Lumbar spondylosis M47.816 Chronic GERD K21.9 Additional Codes JOSR-7 Assessment Billing - JOSR-7 Assessment Tool: JOSR-7 Assessment 52417 ([id number]) PHQ-9 - 64378 - PHQ-9 Billing: Yes ([id number]) Time Spent (min) 22 Assessment & Plan Assessment & Plan (1) Daytime somnolence: Code(s): R40.0 - Somnolence Category: Medical (2) Essential hypertension: Code(s): I10 - Essential (primary) hypertension Category: Medical (3) Mild major depression: Code(s): F32.0 - Major depressive disorder, single episode, mild Category: Medical (4) Persistent atrial fibrillation: Comment: sched for stress test and cardioversion- 07/29 Code(s): I48.19 - Other persistent atrial fibrillation Category: Medical (5) Lumbar spondylosis: Code(s): M47.816 - Spondylosis without myelopathy or radiculopathy, lumbar region Category: Medical (6) Chronic GERD: Code(s): K21.9 - Gastro-esophageal reflux disease without esophagitis Category: Medical Plan The patient will continue current medications for atrial fibrillation, including Multaq, metoprolol, and Xarelto, with regular follow-up with his conference specialist. For neuropathy, gabapentin will be continued, and the patient is advised to monitor symptoms and report any changes. Hypertension management will continue with losartan as needed, based on blood pressure readings. For back pain, nabumetone is to be used sparingly due to bleeding risk, especially with concurrent Xarelto use. The patient is advised to continue pantoprazole for GERD management. Prediabetes management includes dietary monitoring and exercise, with follow-up labs planned to reassess blood sugar levels. Prostate screening is recommended, and the patient is encouraged to complete this at the earliest convenience. For the tingling sensation, a trial of cetirizine or levocetirizine is suggested to assess symptom relief. Patient was informed and verbally consented to the use of an ambient scribe for clinic note documentation during this visit. Orders: Orders Lipid Panel 6 Months E78.5 - Hyperlipidemia, unspecified Comprehensive [place]. Panel Fast 6 Months I48.0 - Paroxysmal atrial fibrillation PSA,Total (Free>4and<10) Today R35.1 - Nocturia RT home sleep study Today R40.0 - Somnolence Medications: New cetirizine (All Day Allergy (cetirizine)) 10 mg PO DAILY 90 days PRN 90 tabs 1RF allergy symptoms naproxen 500 mg PO BID 30 days PRN 60 tabs 0RF pain Discontinued nabumetone Discontinued Reason: Patient Completed Course 750 mg PO BID 30 days PRN 60 tabs 0RF pain
== END 2025-03-30 11:18 | disposition home or self-care (01) ==
LOC: HO.HMCH 10:37
PROVIDERS: PCP Internal Medicine; Visit Provider Internal Medicine
DX: R40.0 Somnolence (principal); I10 Essential (primary) hypertension; F32.0 Major depressive disorder, single episode, mild; I48.19 Other persistent atrial fibrillation; M47.816 Spondylosis without myelopathy or radiculopathy, lumbar region; K21.9 Gastro-esophageal reflux disease without esophagitis

== ENCOUNTER → 2025-03-30 10:37 | Outpatient (BNVA) | payer OTHER, SELFPAY | PROVIDERS: PCP Internal Medicine; Visit Provider Internal Medicine | DX: I10 Essential (primary) hypertension (principal); I48.91 Unspecified atrial fibrillation; G62.9 Polyneuropathy, unspecified; F32.5 Major depressive disorder, single episode, in full remission; Z79.899 Other long term (current) drug therapy; K21.9 Gastro-esophageal reflux disease without esophagitis; R73.03 Prediabetes; R20.2 Paresthesia of skin; R40.0 Somnolence; I48.19 Other persistent atrial fibrillation; M47.816 Spondylosis without myelopathy or radiculopathy, lumbar region | CPT/HCPCS: 96127; 99212 ==

== ENCOUNTER 2025-04-22 13:33 | Outpatient (AMB) | payer OTHER, SELFPAY ==
--- NOTE | 2025-04-22 13:36 | MHC.OFFVIS ---
Vital Signs 04/22/25 13:37 Height 5 ft 11 in Weight 202 lb BMI 28.2 BP 152/80 H Blood Pressure Location Lt brachial Position Sitting Pulse 68 Pulse Source Pulse Oximeter Pulse Oximetry (%) 97 Oxygen Delivery Method Room Air Intake Visit Reasons: Abnormality of esophagus/Mally pt Intake Note: Patient complex follow up for Abnormality of esophagus/Mally pt eri was 07/04/2023. Patient cc: C.O. constipation, intermittent hematochezia, previous recent hx of LLQ pain (no longer present). Pt previously saw JM and was going to have colonoscopy but never received cardio clearance. Onset of progression of sx within the last 6-7 mos. Photo Print Specialist Required: Yes Photo Print Specialist Services: Photo Print Specialist Present Photo Print Specialist Name: Alex [id number] + [facility] [place] Information Interpreted: clinical only Accompanied by: Self / Same As Patient Allergies No Known Allergies Allergy (Verified 04/22/25 13:36) HPI HPI Abnormality of esophagus/Mally pt: Details: Patient is a 59-year-old male with PMH of paroxysmal atrial fibrillation, hypertension and chronic GERD. Last visit with TRISTIN Patterson 06/06/2023 for GERD. His primary concerns are acid reflux and alternating constipation and diarrhea. His acid reflux is currently well-controlled with pantoprazole 40 mg three times a week. If he stops taking the medication for three days, his symptoms return. Previously, he experienced reflux that produced a burning sensation and gastric juice coming out of his mouth, but he is not experiencing these symptoms or regurgitation at present. He denies any trouble swallowing. He describes alternating constipation and diarrhea, which he believes may be related to his gallbladder removal in October 2017. He reports experiencing unformed, soft stools and strong pain with leg weakness during episodes of diarrhea. The abdominal pain is not constant but occurs when he is in the bathroom or sometimes while sitting. He experiences diarrhea more frequently than constipation. He has not been using any specific treatments or medications to manage these symptoms. He had an upper endoscopy in June 2019 and a colonoscopy in 2020 in [place], both of which were reported as normal, though the endoscopy showed evidence of reflux. 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 Patient denies: fever/chills, n/v, appetite changes, dysphasia, unintentional wt loss, ab pain or melena/hematochezia. Social hx: -denies ETOH use -denies recreational drug use -non-smoker - family hx as below -denies personal hx of CA -tolerated anesthesia in the past without difficulty. PFS Medical History (Updated 04/22/25 @ 14:27 by Deepika Bustamante CNP) Change in stool habits Paroxysmal atrial fibrillation Essential hypertension Atrial fibrillation, new onset Lumbar spondylosis Chronic GERD History of echocardiogram Surgical History (Updated 04/22/25 @ 14:10 by Deepika Bustamante CNP) History of colonoscopy History of endoscopy History of cholecystectomy Family History Mother Embolism Father Stomach cancer, Onset Age: 60 Sister Mental health disorder Family/Other Mental health disorder Social History Housing: House Alcohol intake: never Comment: N/A Patient Tobacco Use Status: Never used Tobacco e-Cigarette/Vaping Use: Never Used Second Hand Smoke Exposure: No service: No Current occupational status: unemployed 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 Cognitive needs: No Hearing needs: No Vision needs: Yes Review of Systems Const Reports as per HPI ENT Reports as per HPI Card Reports as per HPI Resp Reports as per HPI GI Reports as per HPI Reports as per HPI Physical Exam Vital Signs: Last Vital Signs Pulse 68 04/22/25 13:37 BP 152/80 H 04/22/25 13:37 Pulse Ox 97 04/22/25 13:37 Oxygen Delivery Method Room Air 04/22/25 13:37 BMI result Body Mass Index 28.2 Const General: healthy appearing, no acute distress and well developed Nutritional Appearance: well nourished Orientation/consciousness: patient oriented x3 HEENT Head: Yes normal to inspection, Yes normocephalic and Yes atraumatic Face and sinus: Yes normal facial exam Eyes General: appearance normal, both eyes and all related structures Neck Neck: Yes normal visual inspection Resp Effort & Inspection: normal respiratory effort, able to speak in complete sentences, no tracheal deviation and symmetric chest movement Auscultation: clear to auscultation bilaterally Cardio Jugular venous distension: no JVD Rate: regular rate Rhythm: regular rhythm Heart sounds: S1 normal heart sound present, S2 normal heart sound present, no gallops and no murmurs GI Inspection: Yes normal to inspection and No distended Palpation (GI): Soft to palpation, not firm, nontender and No hepatosplenomegaly present Auscultation: normal bowel sounds Neuro General: patient oriented x3 Gait exam (Neuro): Normal gait present Psych Appearance: grossly normal Mental Status: mental status grossly normal Speech and movement: Normal speech and movement present Affect: normal affect Attitude: cooperative Thought process: Normal thought process present Thought content: Normal thought content present Insight: Good insight present (Psych) Judgement: Good judgement present (Psych) Results Reviewed Results Reviewed: Date of Service: 05/15/23 Procedure(s): FL upper GI series Accession Number(s): [id number] cc: Sandrita Mann MD~ EXAMINATION: XR GI SERIES CLINICAL INFORMATION: Reflux. COMPARISON: None available. TECHNIQUE: Air-contrast upper GI examination. FINDINGS: There is normal apposition of the vocal cords while saying E. There is normal elevation of the soft palate while saying candy. Patient swallowed thin and thick barium and a half-inch diameter barium tablet without difficulty. No nasopharyngeal reflux or tracheal aspiration. There was some hypomotility within the esophagus without persistent stricture. There was noted to be spontaneous gastroesophageal reflux to the level of the juan. There is some mucosal irregularity at the level of the gastroesophageal junction without definite ulceration identified. The stomach demonstrates normal distensibility without evidence of abnormal mass or ulceration. The duodenal bulb and sweep appeared unremarkable with no delay in gastric emptying. FLUOROSCOPY TIME: 2.3 minutes. DOSE AREA PRODUCT: 25.188 Gy-cm2 (bridges-centimeter squared). FL/FL upper GI series IMPRESSION: Gastroesophageal reflux which occurs spontaneously with some mucosal abnormality within the distal esophagus at the gastroesophageal junction. 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 Symptoms also fit picture of IBS-mixed, will confirm via exclusion with below workup - Order laboratory tests: thyroid function, celiac disease screening, inflammatory markers. - Order stool studies. - Prescribe loperamide PRN for diarrhea. - Recommend whole food diet, adequate hydration, and regular physical activity. - Proceed with colonoscopy to be scheduled. (2) Chronic GERD: Code(s): K21.9 - Gastro-esophageal reflux disease without esophagitis Category: Medical Plan: Well-controlled symptoms with pantoprazole 40 mg three times weekly. - Continue pantoprazole 40 mg three times weekly. - Avoid known GERD triggers. - Proceed with upper endoscopy to be scheduled concurrently with colonoscopy. - Upper endoscopy will serve as both diagnostic tool for GERD and screening for gastric pathology given family history of gastric cancer. Plan Follow-up after endoscopy or sooner as needed Time: I spent a total of 60 minutes on the date of encounter which includes: Preparing to see the patient (reviewed previous documentation, test results and medical history) Performing a medically appropriate exam and/or evaluation Ordering medications, tests, and procedures Documenting clinical information in the health record Orders: Orders TSH reflex Free T4 Today R19.4 - Change in bowel habit Calprotectin, Fecal Today R19.4 - Change in bowel habit C Reactive Protein Today R19.4 - Change in bowel habit Transglutaminase IgA Today R19.4 - Change in bowel habit Medications: New loperamide 4 mg, followed by 2 mg after each loose stool; maximum: 16 mg/day 120 caps 0RF loose stool polyethylene glycol 3350 (Miralax) per colonoscopy prep instructions 238 grams PO ONCE 238 grams 0RF bisacodyl Take four tablets once for 1 day per colonoscopy instructions 5 mg PO ONCE 4 tabs 0RF 1 day Coding Level of Care Code Established Pt Est Pt Level 5 (80342) Patient Type Established Diagnoses Change in stool habits R19.4 Chronic GERD K21.9
[2025-04-22 13:37] VITALS: BP 152/80; PULSE 68; O2SAT 97; BMI 28.2
== END 2025-04-22 14:44 | disposition home or self-care (01) ==
LOC: HO.HGI 13:34
PROVIDERS: PCP Internal Medicine; Visit Provider Nurse Practitioner Family
DX: R19.4 Change in bowel habit (principal); K21.9 Gastro-esophageal reflux disease without esophagitis
CPT/HCPCS: 99215

== ENCOUNTER → 2025-04-22 13:33 | Outpatient (BNVA) | payer OTHER, SELFPAY | PROVIDERS: PCP Internal Medicine; Visit Provider Nurse Practitioner Family | DX: R19.4 Change in bowel habit (principal); K21.9 Gastro-esophageal reflux disease without esophagitis | CPT/HCPCS: 99212 ==

== ENCOUNTER 2025-04-28 11:40 | Outpatient (REF) | payer OTHER, SELFPAY ==
[2025-04-28 13:23] LABS: PSA,Total (Free>4and<10) 0.91 ng/mL (0.00-4.00)
== END 2025-04-28 11:41 | disposition home or self-care (01) ==
LOC: HO.LAB 11:40
PROVIDERS: PCP Internal Medicine; Visit Provider Nurse Practitioner Family
DX: R19.4 Change in bowel habit (principal); R35.1 Nocturia
CPT/HCPCS: 36415; 84153; 84443; 86140; 86364

== ENCOUNTER 2025-04-29 13:22 | Outpatient (REF) | payer OTHER, SELFPAY ==
[2025-05-05 20:44] LABS: Calprotectin, Fecal 63 mcg/g
== END 2025-04-29 13:23 | disposition home or self-care (01) ==
LOC: HO.LNP 13:22
PROVIDERS: Visit Provider Nurse Practitioner Family
DX: R19.4 Change in bowel habit (principal)
CPT/HCPCS: 83993

== ENCOUNTER 2025-06-28 12:53 | Outpatient (AMB) | payer OTHER, SELFPAY ==
--- NOTE | 2025-06-28 13:58 | MHC.OFFVIS ---
Vital Signs 06/28/25 13:59 Height 5 ft 11 in Weight 201 lb 8.04 oz BMI 28.1 BP 110/74 Blood Pressure Location Lt brachial Position Sitting Pulse 55 Pulse Source Monitor Intake Visit Reasons: r/s 4 mth f/up-colonoscopy Intake Note: 4 tmh f/up-colonoscopy Solutions Sales Executive Required: Yes Solutions Sales Executive Language: Day Ha[employer] Youth Supervisor Name: [email or web address] Accompanied by: Self / Same As Patient Allergies No Known Allergies Allergy (Verified 04/22/25 13:36) Medication List - Last Reconciled 06/28/25 by JULES Nolan amitriptyline 10 mg PO BEDTIME 90 days baclofen 20 mg PO BID PRN 30 days bisacodyl 5 mg PO ONCE 1 day blood pressure test kit-large ([place] Blood Pressure Monitor kit) As directed cetirizine (All Day Allergy (cetirizine)) 10 mg PO DAILY PRN 90 days diphenhydramine HCl (Benadryl) 25 mg PO BEDTIME PRN dronedarone (Multaq) 400 mg PO BID furosemide (Lasix) 20 mg PO DAILY 90 days gabapentin 100 mg PO BEDTIME 90 days loperamide 4 mg, followed by 2 mg after each loose stool; maximum: 16 mg/day losartan 25 mg PO BID 90 days metoprolol succinate ER 50 mg PO DAILY 90 days nabumetone 750 mg PO BID PRN 30 days naproxen 500 mg PO BID PRN 30 days pantoprazole 40 mg PO DAILY 90 days polyethylene glycol 3350 (Miralax) 238 grams PO ONCE rivaroxaban (Xarelto) 20 mg PO DAILY 90 days [wrist splint bilateral As directed] HPI HPI r/s 4 mth f/up-colonoscopy: Details: Anton is a 60-year-old male with past medical history of TIA, paroxysmal AFib, who is on Multaq for rhythm control and now presents for follow-up and preop clearance for upper and lower endoscopy. Today he reports that he has been feeling overall. He does describing having a pressure in his chest on 1 day when he noticed his blood pressure was elevated. He has not had recurrent chest symptoms since that time. He has no chest discomfort during physical activity. His blood pressure typically is controlled between 110 and 140 systolic, as seen on his home log. No heart palpitations, lightheadedness, presyncope, syncope, falls. No shortness of breath, PND, orthopnea or edema. No bleeding issues with Xarelto use. He reports good activity tolerance. Certified interpreter for the deaf used. [facility] Medical History Change in stool habits Paroxysmal atrial fibrillation Essential hypertension Atrial fibrillation, new onset Lumbar spondylosis Chronic GERD History of echocardiogram Surgical History History of colonoscopy History of endoscopy History of cholecystectomy Family History Mother Embolism Father Stomach cancer, Onset Age: 60 Sister Mental health disorder Family/Other Mental health disorder Social History Housing: House Alcohol intake: never Comment: N/A Patient Tobacco Use Status: Never used Tobacco e-Cigarette/Vaping Use: Never Used Second Hand Smoke Exposure: No service: No Current occupational status: unemployed 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 Cognitive needs: No Hearing needs: No Vision needs: Yes Review of Systems Const All systems reviewed & are unremarkable except as noted in HPI and below Denies chills, Denies fatigue, Denies fever(s), Denies frequent falls, Denies weakness, Denies weight gain and Denies weight loss ENT Denies dizziness Card Reports chest pain (pressure on one day when BP was elevated), Denies chest pain with activity, Denies leg edema, Denies lightheadedness, Reports palpitations, Denies dyspnea and Denies dyspnea on exertion Resp Denies cough, Denies dyspnea and Denies dyspnea on exertion GI Denies hematochezia Musc Denies abnormal gait, Denies muscle weakness, Denies numbness, Denies radiating pain into limb and Denies tingling Neuro Denies abnormal gait, Denies dizziness, Denies frequent falls, Denies numbness, Denies tingling and Denies weakness Endo Denies fatigue and Reports palpitations Physical Exam Vital Signs: Last Vital Signs Pulse 55 06/28/25 13:59 BP 110/74 06/28/25 13:59 BMI result Body Mass Index 28.1 Const General: cooperative, healthy appearing, comfortable and no acute distress Orientation/consciousness: patient oriented x3 Resp Effort & Inspection: normal respiratory effort Auscultation: clear to auscultation bilaterally, no rales, no rhonchi and no wheezes Cardio Jugular venous distension: no JVD Rate: regular rate Rhythm: regular rhythm Heart sounds: S1 normal heart sound present, S2 normal heart sound present, no murmurs and no rubs Neuro General: patient oriented x3 Extrem General: Yes normal to inspection, No no pedal edema and No calf tenderness Psych Appearance: grossly normal Mental Status: mental status grossly normal Speech and movement: Normal speech and movement present Office Procedures EKG Details: Today, read by me, sinus bradycardia with 1 Pac, rate 55, QTC 455 millisecond [id number], Complete Assessment & Plan Assessment & Plan (1) Paroxysmal atrial fibrillation: Code(s): I48.0 - Paroxysmal atrial fibrillation Category: Medical Plan: Paroxysmal atrial fibrillation, 1st identified in ER 05/04/2023. Prior to his presentation he had noted issues with numbness along the left side of his face and left arm that had resolved. This was considered to be possible TIA. A CTA of the head and neck on 05/04 2023 showed no acute findings. He was initially treated with heart rate control and put on Xarelto for anticoagulation. Echocardiogram done 05/06/2023 showed EF 55-60%, mild LVH, normal valves, mildly dilated left atrium. Holter monitor placed on 05/27/2023 showing atrial fibrillation with uncontrolled rate, averaging 112 beats per minute. He was then put on Multaq 400 mg b.i.d. and he did convert to sinus rhythm. EKG done today showing sinus bradycardia, Pac, rate 55, QTC 457 milliseconds. Labs 07/31/2024 showed creatinine 0.91, hematocrit 45.5. Continue Multaq, metoprolol for rhythm and rate control. Continue Xarelto for anticoagulation. Recommend CBC, kidney function biannual. Office EKG in 3 months. Cardiology follow-up with EKG in 6 months. (2) Essential hypertension: Code(s): I10 - Essential (primary) hypertension Category: Medical Plan: Blood pressure goal less than 130/80. Well controlled at this time. Continue metoprolol, losartan, Lasix. (3) TIA (transient ischemic attack): Code(s): G45.9 - Transient cerebral ischemic attack, unspecified Category: Medical Plan: As above. No recurrent facial numbness since his episode in April 2023. No recurrent episodes. (4) Preop cardiovascular exam: Code(s): Z01.810 - Encounter for preprocedural cardiovascular examination Category: Medical Plan: Preop for upper and lower endoscopy. No date yet. Nuclear stress test completed 11/21/2023 shows probable normal myocardial perfusion imaging. EKG today sinus bradycardia with 1 Pac, rate 55. Continue current meds including Multaq and metoprolol. Chads Vasc score of 3. Xarelto may be held 48 hours prior to his procedure and restart as soon as cleared by surgeon to do so. Call/consult Cardiology if needed. Plan We reviewed that his atrial fibrillation is currently suppressed with medications but can still reoccur. I discussed with the patient the importance of monitoring blood pressure, taking medications, following low salt diet and managing stress to control hypertension. We reviewed the need to hold Xarelto before the endoscopy and the plan for follow-up visits. Orders: Orders Complete Blood Count Auto Diff 3 Months I48.0 - Paroxysmal atrial fibrillation Patient Instructions: - Monitor blood pressure regularly - Manage stress, diet, exercise, and take medications to help control blood pressure. - Continue taking medications as prescribed, including Xarelto. - Hold Xarelto for two days before the endoscopy. - Follow up with an EKG in three months and an office visit in six months. Patient was informed and verbally consented to the use of an ambient scribe for clinic note documentation during this visit. Visit time spent on chart review, interview, assessment, orders, documentation. Coding Level of Care Code Est Pt Level 4 (03494) Complex EM visit Add On G2211 Diagnoses Paroxysmal atrial fibrillation I48.0 Essential hypertension I10 TIA (transient ischemic attack) G45.9 Preop cardiovascular exam Z01.810 CPT Codes EKG - CPT: [id number], Complete ([id number]) Time Spent (min) 32
[2025-06-28 13:59] VITALS: BP 110/74; PULSE 55; BMI 28.1
== END 2025-06-28 14:29 | disposition home or self-care (01) ==
LOC: HO.HCS 12:53
PROVIDERS: PCP Internal Medicine; Visit Provider Nurse Practitioner Family
DX: I48.0 Paroxysmal atrial fibrillation (principal); I10 Essential (primary) hypertension; G45.9 Transient cerebral ischemic attack, unspecified; Z01.810 Encounter for preprocedural cardiovascular examination
CPT/HCPCS: 93010; 99214

== ENCOUNTER → 2025-06-28 12:53 | Outpatient (BNVA) | payer OTHER, SELFPAY | PROVIDERS: PCP Internal Medicine; Visit Provider Nurse Practitioner Family | DX: Z01.810 Encounter for preprocedural cardiovascular examination (principal); I48.0 Paroxysmal atrial fibrillation; G45.9 Transient cerebral ischemic attack, unspecified; I10 Essential (primary) hypertension | CPT/HCPCS: 93005; 99212 ==

== ENCOUNTER → 2025-07-01 08:39 | Outpatient (REF) | payer OTHER, SELFPAY | LOC: HO.SL 08:39 | PROVIDERS: PCP Internal Medicine; Visit Provider Internal Medicine | DX: G47.33 Obstructive sleep apnea (adult) (pediatric) (principal); R40.0 Somnolence | CPT/HCPCS: 95806 ==

== ENCOUNTER → 2025-07-01 08:54 | Outpatient (BNV) | payer OTHER, SELFPAY | PROVIDERS: PCP Internal Medicine; Visit Provider Internal Medicine | DX: G47.33 Obstructive sleep apnea (adult) (pediatric) (principal) | CPT/HCPCS: 95806 ==

== ENCOUNTER 2025-09-22 09:17 | Outpatient (REF) | payer OTHER, SELFPAY ==
[2025-09-22 09:33] LABS: MANUAL DIFF FLAG NO
[2025-09-22 10:31] LABS: Hematocrit 43.8 % (42.0-52.0); Hemoglobin 14.3 g/dl (14.0-18.0); Imm Gran Abs Auto 0.02 X10*3/uL (0.00-0.03); Imm Gran Pct Auto 0.3 % (0.0-0.4); Lymphocytes Absolute Auto 1.5 X10*3/uL (1.2-4.9); Mean Corpuscular HGB Conc 32.6 g/dl (31.0-36.0); Mean Corpuscular Hemoglobin 29.4 pg (27.0-33.0); Mean Corpuscular Volume 89.9 fL (80.0-98.0); NRBC Abs Auto 0.000 X10*3/uL (0.0-0.012); NRBC Pct Auto 0.0 /100WBC (0.0-0.2); Platelet Count 209 X10*3/uL (160-400); Red Blood Count 4.87 X10*6/uL (4.60-5.80); White Blood Count 6.5 X10*3/uL (4.8-10.8)
[2025-09-22 11:22] LABS: Alanine Aminotransferase 27 U/L (0-40); Albumin Level 4.6 g/dL (3.5-5.0); Anion Gap 9 (12-20); Aspartate Amino Transferase 27 U/L (5-37); Blood Urea Nitrogen 17 mg/dL (9-16); Calcium 9.6 mg/dL (8.4-10.2); Carbon Dioxide 33 mmol/L (22-29); Chloride 103 mmol/L (96-108); Cholesterol 172 mg/dL (<200); Estimated Glomerular Filt Rate > 60; HDL Cholesterol 59 mg/dL (>40); Potassium 4.3 mmol/L (3.3-5.1); Sodium 141 mmol/L (135-145); Total Protein 7.9 g/dL (6.5-8.0); Triglycerides 75 mg/dL (<150)
[2025-09-22 11:23] LABS: Alkaline Phosphatase 67 U/L (39-117)
== END 2025-09-22 09:18 ==
LOC: HO.LAB 09:17
PROVIDERS: Absent Provider Nurse Practitioner Family; PCP Internal Medicine; Visit Provider Internal Medicine
DX: I48.0 Paroxysmal atrial fibrillation (principal); E78.5 Hyperlipidemia, unspecified
CPT/HCPCS: 36415; 80053; 80061; 85025

== ENCOUNTER 2025-10-04 10:31 | Outpatient (AMB) | payer OTHER, SELFPAY ==
[2025-10-04 11:19] VITALS: BP 128/64; PULSE 58; RESP 18; O2SAT 100; BMI 28.7
--- NOTE | 2025-10-04 11:19 | A.OFFPC_ITS ---
Vital Signs 10/04/25 11:19 Height 5 ft 11 in Weight 206 lb BMI 28.7 BP 128/64 Blood Pressure Location Lt brachial Position Sitting Respiration 18 Pulse 58 Pulse Source Pulse Oximeter Temp Source Temporal Artery Scan Pulse Oximetry (%) 100 Oxygen Delivery Method Room Air Intake Visit Reasons: Annual Exam Test Evaluator Required: No Accompanied by: Self / Same As Patient Allergies No Known Allergies Allergy (Verified 10/04/25 11:30) Medication List - Last Reconciled 10/04/25 by Sandrita Segura MD amitriptyline 10 mg PO BEDTIME 90 days baclofen 20 mg PO BID PRN 30 days bisacodyl 5 mg PO ONCE 1 day blood pressure test kit-large ([employer] Blood Pressure Monitor kit) As directed cetirizine (All Day Allergy (cetirizine)) 10 mg PO DAILY PRN 90 days diphenhydramine HCl (Benadryl) 25 mg PO BEDTIME PRN dronedarone (Multaq) 400 mg PO BID furosemide (Lasix) 20 mg PO DAILY 90 days gabapentin 100 mg PO BEDTIME 90 days loperamide 4 mg, followed by 2 mg after each loose stool; maximum: 16 mg/day losartan 25 mg PO BID 90 days metoprolol succinate ER 50 mg PO DAILY 90 days nabumetone 750 mg PO BID PRN 30 days naproxen 500 mg PO BID PRN 30 days pantoprazole 40 mg PO DAILY 90 days polyethylene glycol 3350 (Miralax) 238 grams PO ONCE rivaroxaban (Xarelto) 20 mg PO DAILY 90 days [wrist splint bilateral As directed] Tobacco use date assessed: 03/30/25 Dental Screening Dental Screen Date: 03/30/25 Did you have a dental visit in the last 12 months?: Yes Did you have a dental problem in the last 6 months where you did not have access to dental care?: No Was dental information given to patient?: Patient has dentist HPI HPI Comments History of Present Illness Details This is a 60 year old male with mild major depression, persistent atrial fibrillation and LORAINE that comes for his physical exam today. He complains of right ear discomfort and will be referred to ENT. Colonoscopy done 2020 and he follows with Gastroenterology. Atrial fibrillation is follow by cardiology and is on chronic anticoagulation. Depression in remission. Declines flu vaccine today. [facility] Medical History (Updated 10/04/25 @ 12:03 by Sandrita Segura MD) Change in stool habits Paroxysmal atrial fibrillation Essential hypertension Atrial fibrillation, new onset Lumbar spondylosis Chronic GERD History of echocardiogram Surgical History History of colonoscopy History of endoscopy History of cholecystectomy Family History Mother Embolism Father Stomach cancer, Onset Age: 60 Sister Mental health disorder Family/Other Mental health disorder Social History Housing: House Alcohol intake: never Comment: N/A Patient Tobacco Use Status: Never used Tobacco e-Cigarette/Vaping Use: Never Used Second Hand Smoke Exposure: No service: No Current occupational status: unemployed 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 Soto Carmen, Nataliya Chavis, Josemanuel Garza and colleagues, with an educational nilda from [employer]. Review of Systems Const All systems reviewed & are unremarkable except as noted in HPI and below Card Denies chest pain at rest, Denies chest pain with activity, Denies edema, Denies irregular heart rhythm, Denies claudication, Denies dyspnea, Denies dyspnea on exertion, Denies orthopnea, Denies paroxysmal nocturnal dyspnea and Denies slow heart rate Resp Denies cough, Denies dyspnea and Denies dyspnea on exertion GI Denies abdominal pain, Denies change in bowel habits, Denies excessive flatus, Denies nausea and Denies vomiting Denies urinary hesitancy, Denies urinary incontinence and Denies urinary urgency Musc Denies atrophy, Denies deformity and Denies limited range of motion Skin/Breast Denies bleeding lesions, Denies changing lesions and Denies rash Physical exam (Primary Care) Vital Signs: Last Vital Signs Pulse 58 10/04/25 11:19 Resp 18 10/04/25 11:19 BP 128/64 10/04/25 11:19 Pulse Ox 100 10/04/25 11:19 Oxygen Delivery Method Room Air 10/04/25 11:19 BMI result Body Mass Index 28.7 Tobacco/Smoking Status: Tobacco use Status Tobacco use date assessed 03/30/25 10/04/25 11:20 Patient Tobacco Use Status Never used Tobacco 10/04/25 11:20 e-Cigarette/Vaping Use Never Used 10/04/25 11:20 Thrive Assessment: Date of Thrive Assessment Date Thrive assessed 03/30/25 10/04/25 11:20 HENMT Head: Yes normal to inspection, Yes normocephalic and Yes atraumatic Ears: external ears normal Eyes General: appearance normal, both eyes and all related structures Eyelids: Yes eyelids normal Conjunctivae: conjunctivae normal Neck Neck: Yes normal visual inspection and Yes supple Resp Effort & Inspection: normal respiratory effort Auscultation: clear to auscultation bilaterally Cardio Jugular venous distension: no JVD Rate: regular rate Rhythm: regular rhythm Heart sounds: S1 normal heart sound present and S2 normal heart sound present GI Inspection: Yes normal to inspection Palpation (GI): Soft to palpation and nontender Auscultation: normal bowel sounds Skin General skin exam: no rashes or lesions noted Neuro General: no focal motor deficits Extrem General: Yes full ROM Psych Appearance: grossly normal Coding Level of Care Code Est Pt Level 3 (73663) Est Pt Prev Care 40-64y(81202) Diagnoses Physical exam Z00.00 LORAINE (obstructive sleep apnea) G47.33 Persistent atrial fibrillation I48.19 Mild major depression F32.0 Discomfort of right ear H92.01 Time Spent (min) 34 Assessment & Plan Assessment & Plan (1) Physical exam: Code(s): Z00.00 - Encounter for general adult medical examination without abnormal findings Category: Medical (2) LORAINE (obstructive sleep apnea): Code(s): G47.33 - Obstructive sleep apnea (adult) (pediatric) Category: Medical (3) Persistent atrial fibrillation: Comment: sched for stress test and cardioversion- 07/29 Code(s): I48.19 - Other persistent atrial fibrillation Category: Medical (4) Mild major depression: Code(s): F32.0 - Major depressive disorder, single episode, mild Category: Medical (5) Discomfort of right ear: Code(s): H92.01 - Otalgia, right ear Category: Medical Plan Repeat physical exam in a year. Consider flu vaccine. Referred to ENT due to right ear discomfort. Orders: Referrals Ear/Nose/Throat Referral H92.01 - Otalgia, right ear Medications: New CPAP auto-PAP 6-20 cmH2O 1 ea 0RF G47.33 - Obstructive sleep apnea (adult) (pediatric) Refilled cetirizine (All Day Allergy (cetirizine)) 10 mg PO DAILY PRN 90 tabs 1RF allergy symptoms 90 days
== END 2025-10-04 11:47 | disposition home or self-care (01) ==
LOC: HO.HMCH 10:32
PROVIDERS: PCP Internal Medicine; Visit Provider Internal Medicine
DX: Z00.00 Encounter for general adult medical examination without abnormal findings (principal); G47.33 Obstructive sleep apnea (adult) (pediatric); I48.19 Other persistent atrial fibrillation; F32.0 Major depressive disorder, single episode, mild; H92.01 Otalgia, right ear

== ENCOUNTER → 2025-10-04 10:31 | Outpatient (BNVA) | payer OTHER, SELFPAY | PROVIDERS: PCP Internal Medicine; Visit Provider Internal Medicine | DX: Z00.00 Encounter for general adult medical examination without abnormal findings (principal); G47.33 Obstructive sleep apnea (adult) (pediatric); I48.19 Other persistent atrial fibrillation; F32.0 Major depressive disorder, single episode, mild; H92.01 Otalgia, right ear | CPT/HCPCS: 99212; 99396 ==